=== PATIENT | female | born 1950 | race Caucasian/White ===

== ENCOUNTER → 2016-09-16 | Outpatient (CLI) | payer MEDICARE ==
--- NOTE | 2016-09-17 16:16 | XR ---
EXAMINATION TYPE: XR chest 2V DATE OF EXAM: 09/16/2016 10:08 AM COMPARISON: Prior chest x-ray 26 June 2015 HISTORY: Chest pain and hypertension, cough TECHNIQUE: Frontal and lateral views of the chest are obtained. FINDINGS: Similar findings. Extensive interstitial changes are again noted. No pneumothorax or pleur al effusion. No focal pneumonia. Prominent lung suggests underlying COPD. Cardiac mediastinal silhoue tte, pulmonary vascularity are stable. IMPRESSION: Extensive interstitial lung disease. Consider pulmonary consult.
== END | disposition home or self-care (01) ==
LOC: RADXRYALE 09:57
PROVIDERS: ATTEND Physician Assistant Medical
DX: J84.9 Interstitial pulmonary disease, unspecified (principal); I10 Essential (primary) hypertension
CPT/HCPCS: 71020

== ENCOUNTER 2016-09-18 11:39 | Emergency (ER) | payer MEDICARE ==
[2016-09-18] MEDS ORDERED: NITROGLYCERIN SL TABS 0.4 MG TAB SUBLINGUAL STA (11:57)
[2016-09-18] MEDS ORDERED: ONDANSETRON 4 MG/2 ML VIAL IVP STA (11:57)
[2016-09-18] MEDS ORDERED: SODIUM CHLORIDE 0.9% 1,000 ML IV STA (11:57)
[2016-09-18] MEDS ORDERED: HYDROmorphone 1 MG/ML 1 ML SYRINGE IVP STA (11:59)
[2016-09-18 12:47] LABS: Basophils % (A) 1 %; CH 33.5; CHCM 35.4; Eosinophils # (A) 0.1 k/uL (0-0.7); Eosinophils % (A) 3 %; HCT 43.9 % (34.0-46.0); HDW 2.39; HGB 15.4 gm/dL (11.4-16.0); Luc # (Auto) 0.18; Luc % (Auto) 4; Lymphocytes # (A) 0.9 k/uL (1.0-4.8); Lymphocytes % (A) 18 %; MCH 33.4 pg (25.0-35.0); MCHC 35.1 g/dL (31.0-37.0); Mean Platelet Volume 6.5; Monocytes # (A) 0.4 k/uL (0-1.0); Monocytes % (A) 9 %; Neutrophils # (A) 3.1 k/uL (1.3-7.7); Neutrophils % (A) 66 %; RBC 4.62 m/uL (3.80-5.40); RDW 13.2 % (11.5-15.5); WBC 4.7 k/uL (3.8-10.6); WBC (Perox) 4.78
--- NOTE | 2016-09-18 12:58 | XR ---
EXAMINATION TYPE: XR chest 2V DATE OF EXAM: 09/18/2016 12:48 PM COMPARISON: Prior chest x-ray third of September 2016 HISTORY: Chest pain TECHNIQUE: Frontal and lateral views of the chest are obtained. FINDINGS: Interstitial changes are stable. Prominent lung volumes again noted. Cardiomediastinal yvette houette, pulmonary vascularity and cydney are stable. There are overlying cardiac leads. Patient is rot ated. IMPRESSION: Interstitial lung disease.
[2016-09-18 13:03] LABS: ALT 25 U/L (9-52); AST 25 U/L (14-36); Alkaline Phosphatase 142 U/L (38-126); Anion Gap 13 mmol/L; Blood Urea Nitrogen 19 mg/dL (7-17); Calcium 9.3 mg/dL (8.4-10.2); Carbon Dioxide 22 mmol/L (22-30); Chloride 89 mmol/L (98-107); Glucose 100 mg/dL (74-99); Magnesium 1.8 mg/dL (1.6-2.3); Non-African American GFR(MDRD) 54 (>60 ml/min/1.73 sqM); Sodium 124 mmol/L (137-145); Total Bilirubin 0.9 mg/dL (0.2-1.3); Total Protein 9.1 g/dL (6.3-8.2)
[2016-09-18 13:08] LABS: Potassium 5.1 mmol/L (3.5-5.1)
[2016-09-18 13:09] LABS: Creatine Kinase 49 U/L (30-135)
[2016-09-18 13:22] LABS: Creatine Kinase MB 0.7 ng/mL (0.0-2.4); Troponin I <0.012 ng/mL (0.000-0.034)
[2016-09-18 13:23] LABS: INR 1.1 (<1.1); Partial Thromboplastin Time 26.7 sec (22.0-30.0); Prothrombin Time 11.3 sec (9.0-12.0)
[2016-09-18 13:25] VITALS: RESP 18
--- NOTE | 2016-09-18 13:57 | CT ---
EXAMINATION TYPE: CT brain wo con DATE OF EXAM: 09/18/2016 1:26 PM COMPARISON: NONE HISTORY: Pt c/o chest pain, MORALES, dizziness CT DLP: 892.1 mGycm Automated exposure control for dose reduction was used. FINDINGS: There is no acute intracranial hemorrhage, mass effect, or midline shift identified. The ventricles and sulci are within normal limits in size. Small bony defect present in the middle cranial fossa lat erally on the left without associated soft tissue mass measuring 7-8 mm. The globes are intact and th e visualized sinuses are clear. IMPRESSION: No acute intracranial hemorrhage, mass effect, or midline shift is seen.
--- NOTE | 2016-09-18 15:33 | ED ---
Chest Pain HPI - General Chief Complaint: Chest Pain Stated Complaint: chest pain Time Seen by Provider: 09/18/16 11:51 Source: patient Mode of arrival: wheelchair Limitations: no limitations - History of Present Illness Initial Comments: Complain about chest pain, and she has this chest pain off and on for some time and also complaining about some dizziness and facial pressure she was seen by her family doctor Dr. Melo did notice some EKG changes she got nervous about that at this point chest pain only gets more obvious when she takes takes a deep breath but chest pain been there off and on she stating that's not worse with exertion but she is retired she don't exert herself too much anyway. But she has multiple risk factors she has smoked most part of her life. Denies any fever no chills she has a smoker's cough no abdominal pain no frequency urgency dysuria no symptoms of TIA or CVA - Related Data Home Medications Medication Instructions Recorded Confirmed Cholecalciferol [Vitamin D3] 1,000 unit PO DAILY 09/18/16 09/18/16 Hydrochlorothiazide [Hydrodiuril] 25 mg PO DAILY 09/18/16 09/18/16 Lansoprazole [Prevacid] 30 mg PO BID 09/18/16 09/18/16 Losartan Potassium [Cozaar] 100 mg PO DAILY 09/18/16 09/18/16 Simvastatin [Zocor] 20 mg PO HS 09/18/16 09/18/16 Previous Rx's Medication Instructions Recorded Nitroglycerin Sl Tabs [Nitrostat] 0.4 mg SUBLINGUAL Q5M PRN #100 tab 09/18/16 Allergies Allergy/AdvReac Type Severity Reaction Status Date / Time hydrocodone Allergy Rash/Hives Verified 09/18/16 12:11 latex Allergy Unknown Verified 09/18/16 12:11 meperidine [From Demerol] Allergy Unknown Verified 09/18/16 12:11 oxycodone Allergy Unknown Verified 09/18/16 12:11 tramadol Allergy Unknown Verified 09/18/16 12:11 Review of Systems ROS Statement: Those systems with pertinent positive or pertinent negative responses have been documented in the HPI. ROS Other: All systems not noted in ROS Statement are negative. EKG Findings - EKG Comments: EKG Findings:: EKG is normal sinus rhythm medical rate is 68 NM interval is 132 QRS duration is 92 QT/QTc is 392/416 review of this EKG did not reveal any ST elevation or ST depression - EKG Results: EKG: interpreted by RADHA Past Medical History Past Medical History: GERD/Reflux, Hyperlipidemia, Hypertension Past Surgical History: Appendectomy, Orthopedic Surgery, Tonsillectomy Additional Past Surgical History / Comment(s): shoulder Past Psychological History: No Psychological Hx Reported Smoking Status: Current every day smoker Past Alcohol Use History: None Reported Past Drug Use History: None Reported General Exam - General Exam Comments Initial Comments: General: The patient is awake and alert, in no distress, and does Skin: Skin is warm and dry and no rashes or lesions are noted. Eye: Pupils are equal, round and reactive to light, extra-ocular movements are intact; there is normal conjunctiva bilaterally. Ears, nose, mouth and throat: He is quite tender over the sinuses bilaterally Neck: The neck is supple, there is no tenderness or JVD. Cardiovascular: There is a regular rate and rhythm. No murmur, rub or gallop is appreciated. Respiratory: To auscultation bilateral, exam consistent with a severe COPD Gastrointestinal: Soft, non-distended, non-tender abdomen without masses Back: There is no tenderness to palpation in the midline. There is no obvious deformity. Musculoskeletal: Normal ROM, no tenderness, There is no pedal edema. There is no calf tenderness or swelling. No cords were appreciated. Neurological: CN II-XII intact, Cranial nerves III through XII are intact. There are no obvious motor or sensory deficits. Coordination appears grossly intact. Speech is normal. Psychiatric: Cooperative, appropriate mood & affect, normal judgment. Limitations: no limitations Course Vital Signs 09/18/16 09/18/16 09/18/16 11:44 12:22 12:31 Temperature 96.9 F L Pulse Rate 76 65 Pulse Rate [ 69 [employer] ] Respiratory 18 16 16 Rate Blood Pressure 148/71 143/63 O2 Sat by Pulse 95 98 Oximetry 09/18/16 09/18/16 13:22 14:58 Temperature 97.6 F Pulse Rate 63 65 Pulse Rate [ [employer] ] Respiratory 18 18 Rate Blood Pressure 106/49 105/50 O2 Sat by Pulse 100 100 Oximetry She was reassessed at 1520 on her labs were discussed with her 8 d-dimer is within normal range CBC, sodium is bit low troponin is negative EKG is unremarkable head CT is normal chest x-ray is consistent with his physician lung disease, considering her risk factors it was recommended that she states in the hospital would do the serial cardiac markers we heparinize her and now consult cardiology she wants to see cardiology as outpatient and I respect her wishes Disposition Clinical Impression: Chest pain, Sinusitis Disposition: HOME SELF-CARE Condition: Good Instructions: Chest Pain (ED) Additional Instructions: Is advised to take aspirin 81 mg every day she is also prescribed him nitro spray or nitroglycerin 0.4 mg sublingual when necessary Prescriptions: Nitroglycerin Sl Tabs [Nitrostat] 0.4 mg SUBLINGUAL Q5M PRN #100 tab PRN Reason: Chest Pain Referrals: Artemio Melo DO [Primary Care Provider] - 1-2 days Sylvia Dykes MD [STAFF PHYSICIAN] - 1-2 days
[2016-09-18 16:00] VITALS: BP 113/53; PULSE 64; TEMP 98
== END 2016-09-18 15:59 | disposition home or self-care (01) ==
LOC: EC 11:39
DX: J32.9 Chronic sinusitis, unspecified (principal); R07.9 Chest pain, unspecified; I10 Essential (primary) hypertension; E78.5 Hyperlipidemia, unspecified; K21.9 Gastro-esophageal reflux disease without esophagitis; F17.200 Nicotine dependence, unspecified, uncomplicated; Z88.5 Allergy status to narcotic agent; Z91.040 Latex allergy status; Z79.899 Other long term (current) drug therapy
CPT/HCPCS: 96374; 96375; 96361 ×3; 99285; 36415; 93005; 85379; 83880; 80053; 82550; 82553; 83735; 84484; 85025; 85610; 85730; 71020; 70450; J2405; J1170

== ENCOUNTER → 2017-05-29 | Outpatient (CLI) | payer MEDICARE ==
--- NOTE | 2017-06-01 07:30 | MM ---
Reason for exam: screening (asymptomatic). Last mammogram was performed 1 year and 4 months ago. History: Patient is postmenopausal. Family history of breast cancer in maternal grandmother. Physical Findings: A clinical breast exam by your physician is recommended on an annual basis and results should be correlated with mammographic findings. MG 3D Screening Mammo W/Cad Bilateral CC and MLO view(s) were taken. Prior study comparison: January 28, 2016, bilateral MG 3d screening mammo w/cad. July 21, 2014, bilateral MG screening mammo w CAD. The breast tissue is almost entirely fat. There is no discrete abnormality. No significant changes when compared with prior studies. ASSESSMENT: Negative, BI-RAD 1 RECOMMENDATION: Routine screening mammogram of both breasts in 1 year.
== END | disposition home or self-care (01) ==
LOC: RADMAMWWP 13:12
PROVIDERS: ATTEND Family Medicine
DX: Z12.31 Encounter for screening mammogram for malignant neoplasm of breast (principal)
CPT/HCPCS: 77063; G0202

== ENCOUNTER → 2018-01-18 | Outpatient (CLI) | payer MEDICARE ==
--- NOTE | 2018-01-18 09:00 | US ---
EXAMINATION TYPE: US abdomen complete DATE OF EXAM: 01/18/2018 COMPARISON: NONE CLINICAL HISTORY: R10.11 RUQ abdominal pain. RUQ pain, NPO EXAM MEASUREMENTS: Liver Length: 16.2 cm Gallbladder Wall: 0.1 cm CBD: 0.6 cm CHD: 0.7 cm Spleen: 9.7 cm Right Kidney: 9.6 x 4.7 x 3.8 cm Left Kidney: 8.9 x 4.1 x 4.4 cm Suboptimal visualization of left kidney due to overlying bowel gas Pancreas: Limited by bowel gas. Visualized portions of the pancreas within normal limits. Liver: wnl Gallbladder: Appears compacted with multiple echogenic foci with shadowing. Evidence for sonographic Gabriel's sign: neg CBD: Appears dilated CHD: appears slightly dilated Spleen: wnl Right Kidney: wnl Left Kidney: Limited visualization of lower pole Upper IVC: wnl Abd Aorta: No AAA identified IMPRESSION: 1. Gallbladder appears contracted with multiple gallstones. Common bile duct also appears at the upp er limits of normal distal CBD stone not excluded.
== END | disposition home or self-care (01) ==
LOC: RADCTMAIN 07:51
PROVIDERS: ATTEND Family Medicine
DX: R10.11 Right upper quadrant pain (principal); I10 Essential (primary) hypertension; R42 Dizziness and giddiness
CPT/HCPCS: 76700

== ENCOUNTER → 2018-09-20 | Outpatient (CLI) | payer MEDICARE ==
--- NOTE | 2018-09-20 15:58 | CT ---
EXAMINATION TYPE: CT brain wo con DATE OF EXAM: 09/20/2018 COMPARISON: 09/18/2016 HISTORY: Dizziness and hypertension CT DLP: 969.8 mGycm Automated exposure control for dose reduction was used. TECHNIQUE: CT scan of the head is performed without contrast. FINDINGS: There is no acute intracranial hemorrhage or midline shift identified. There is diffuse v entricular and sulcal prominence consistent with diffuse age-related cerebral atrophy. No suspicious extra-axial fluid collection. Pacheco-white matter interface appears well preserved. There is redemonstr ation of a possible gisela hole or congenital abnormality of the left temporal bone that is unchanged f rom the prior on series 4 image 8. Remainder of the calvarium appears intact. Similar-appearing promi nent arachnoid granulations are seen within the left frontal bone. Mild atherosclerosis is noted of t he intracranial vasculature. There is circumferential mucosal thickening that is moderate in degree o f the right maxillary sinus with scant mucosal thickening of the ethmoid sinuses and left maxillary s inus. Frontal sinuses and sphenoid sinuses are well aerated as are the mastoid air cells. IMPRESSION: 1. No acute intracranial hemorrhage or midline shift. 2. Moderate right maxillary sinusitis with internal complexity that could relate to internal hemorrha gic or proteinaceous debris or fungal infection. Scant mucosal thickening of the left maxillary and e thmoid sinuses. 3. Redemonstration of age-related cerebral atrophy.
--- NOTE | 2018-09-21 19:15 | ECHOF ---
Referral Reason:R42 Dizziness and giddiness MEASUREMENTS -------- HEIGHT: 162.6 cm WEIGHT: 73.9 kg BP: 121/57 RVIDd: 2.9 cm (< 3.3) IVSd: 1.1 cm (0.6 - 1.1) LVIDd: 3.3 cm (3.9 - 5.3) LVPWd: 1.2 cm (0.6 - 1.1) IVSs: 1.5 cm LVIDs: 2.2 cm LVPWs: 1.4 cm LA Diam: 3.2 cm (2.7 - 3.8) LAESV Index (A-L): 24.94 ml/m Ao Diam: 3.0 cm (2.0 - 3.7) AV Cusp: 1.6 cm (1.5 - 2.6) MV EXCURSION: 18.894 mm (> 18.000) MV EF SLOPE: 63 mm/s (70 - 150) EPSS: 0.5 cm MV E César: 0.84 m/s MV DecT: 226 ms MV A César: 1.04 m/s MV E/A Ratio: 0.81 RAP: 5.00 mmHg RVSP: 30.81 mmHg FINDINGS -------- Sinus rhythm. This was a technically good study. The left ventricular size is normal. There is borderline concentric left ventricular hypertrophy. Overall left ventricular systolic function is normal with, an EF between 60 - 65 %. The right ventricle is normal in size. Normal LA size by volume 22+/-6 ml/m2. The right atrium is normal in size. There is mild aortic valve sclerosis. The mitral valve is normal. There is trace to mild mitral regurgitation. Mild tricuspid regurgitation present. Right ventricular systolic pressure is normal at < 35 mmHg. Trace/mild (physiologic) pulmonic regurgitation. The aortic root size is normal. Normal inferior vena cava with normal inspiratory collapse consistent with estimated right atrial pre ssure of 5 mmHg. The inferior vena cava is mildly dilated. There is no pericardial effusion. CONCLUSIONS -------- 1. Sinus rhythm. 2. This was a technically good study. 3. The left ventricular size is normal. 4. There is borderline concentric left ventricular hypertrophy. 5. Overall left ventricular systolic function is normal with, an EF between 60 - 65 %. 6. The right ventricle is normal in size. 7. Normal LA size by volume 22+/-6 ml/m2. 8. The right atrium is normal in size. 9. There is mild aortic valve sclerosis. 10. The mitral valve is normal. 11. There is trace to mild mitral regurgitation. 12. Mild tricuspid regurgitation present. 13. Right ventricular systolic pressure is normal at < 35 mmHg. 14. Trace/mild (physiologic) pulmonic regurgitation. 15. The aortic root size is normal. 16. Normal inferior vena cava with normal inspiratory collapse consistent with estimated right atrial pressure of 5 mmHg. 17. The inferior vena cava is mildly dilated. 18. There is no pericardial effusion. CLINICAL PROGRAM DIRECTOR: Roxanne Matamoros RDCS
== END | disposition home or self-care (01) ==
LOC: RADECHMAIN 15:11
PROVIDERS: ATTEND Family Medicine
DX: G31.1 Senile degeneration of brain, not elsewhere classified (principal); I10 Essential (primary) hypertension; I35.8 Other nonrheumatic aortic valve disorders; I07.1 Rheumatic tricuspid insufficiency; I37.1 Nonrheumatic pulmonary valve insufficiency
CPT/HCPCS: 70450; 93306

== ENCOUNTER → 2019-04-08 | Outpatient (CLI) | payer MEDICARE ==
--- NOTE | 2019-04-12 13:05 | MM ---
Reason for exam: screening (asymptomatic). Last mammogram was performed 1 year and 10 months ago. History: Patient is postmenopausal. Family history of breast cancer in maternal grandmother. MG 3D Screening Mammo W/Cad Bilateral CC and MLO view(s) were taken. Prior study comparison: May 29, 2017, bilateral MG 3d screening mammo w/cad. January 28, 2016, bilateral MG 3d screening mammo w/cad. There are scattered fibroglandular densities. No significant new finding when compared with prior studies. ASSESSMENT: Negative, BI-RAD 1 RECOMMENDATION: Routine screening mammogram of both breasts in 1 year.
== END | disposition home or self-care (01) ==
LOC: RADMAMWWP 12:15
PROVIDERS: ATTEND Family Medicine
DX: Z12.31 Encounter for screening mammogram for malignant neoplasm of breast (principal)
CPT/HCPCS: 77063; 77067

== ENCOUNTER → 2019-07-29 | Outpatient (CLI) | payer MEDICARE ==
--- NOTE | 2019-07-29 11:28 | XR ---
EXAMINATION TYPE: XR chest 2V DATE OF EXAM: 07/29/2019 COMPARISON: 09/18/2016 TECHNIQUE: PA and lateral views submitted. HISTORY: Shortness of breath FINDINGS: Diffuse hyperinflation. Heart size normal. Diffuse reticular changes throughout the lungs. Subsegment al changes left lung base. There is prominence of the left hilum which has a somewhat nodular contour . Degenerative changes are IMPRESSION: 1. Correlate for pulmonary fibrosis with left lower lobe infiltrate. 2. Nodularity convex outer margin of the left hilum can be associated with a mass or adenopathy and r ecommend CT of the chest.
== END | disposition home or self-care (01) ==
LOC: RADXRYALE 11:05
PROVIDERS: ATTEND Physician Assistant Medical
DX: R91.1 Solitary pulmonary nodule (principal); J44.9 Chronic obstructive pulmonary disease, unspecified
CPT/HCPCS: 71046

== ENCOUNTER → 2019-08-05 | Outpatient (CLI) | payer MEDICARE ==
--- NOTE | 2019-08-05 11:10 | CT ---
EXAMINATION TYPE: CT chest w con DATE OF EXAM: 08/05/2019 COMPARISON: Chest x-ray dated 07/29/2019 HISTORY: Abn CXR CT DLP: 297 mGycm. Automated Exposure Control for Dose Reduction was Utilized. TECHNIQUE: CT scan of the thorax is performed following with IV Contrast, patient injected with 100 mL of Isovue 300. FINDINGS: LUNGS: Peripheral predominant honeycombing and reticular opacity is indicative of pulmonary fibrosis. Interlobular septal thickening is also present. Subpleural consolidations are likely related to atel ectasis. Medial lower lobe consolidation is also likely related to atelectasis as is the lingular con solidation. No pleural effusion or pneumothorax. Moderate centrilobular and paraseptal emphysema. Juan Pablo ateral multifocal pleural thickening is mild and thickness but diffuse. MEDIASTINUM: Abnormal prevascular lymph node measures 1.7 x 2.1 cm. Abnormal subcarinal lymph node me asures 1.6 cm in short axis. Prominent right hilar lymph nodes measure up to 1.2 cm in short axis. Le ft paratracheal adenopathy measures 1.2 cm in short axis. Precarinal lymph node measures 1.4 cm in sh ort axis. Pretracheal lymph node measures 1.7 cm in short axis. No pericardial effusion is seen. F ew coronary artery calcifications. OTHER: No additional significant abnormality is seen. Cholecystectomy clips are seen. There is an ex aggerated thoracic kyphosis and moderate multilevel degenerative cyst disease of the thoracic spine. Diffuse low-density of the hepatic parenchyma favors mild degree hepatic steatosis and limits evaluat ion for hepatic masses. IMPRESSION: 1. Confirmation of pulmonary fibrosis, at least moderate with moderate background centrilobular and p araseptal emphysematous change. Multifocal pleural thickening and atelectasis is also seen. 2. Abnormal mediastinal adenopathy. This may be reactive and could be reassessed in 3 months.
== END ==
LOC: RADCTMAIN 07:23
PROVIDERS: ATTEND Family Medicine
DX: J84.10 Pulmonary fibrosis, unspecified (principal); J43.9 Emphysema, unspecified; J98.11 Atelectasis; R91.8 Other nonspecific abnormal finding of lung field; R59.0 Localized enlarged lymph nodes
CPT/HCPCS: 71260; Q9967

== ENCOUNTER → 2019-11-14 | Outpatient (CLI) | payer MEDICARE ==
--- NOTE | 2019-11-14 12:55 | CT ---
EXAMINATION TYPE: CT chest wo con DATE OF EXAM: 11/14/2019 COMPARISON: CT chest August 05, 2019. Most recent chest x-ray July 29, 2019 and older x-rays and 2014. HISTORY: difficulty breathing, interstitial lung disease CT DLP: 655.9 mGycm. Automated Exposure Control for Dose Reduction was Utilized. TECHNIQUE: CT scan of the thorax is performed without IV contrast. High resolution protocol with 1 m m obtained at 10 mm intervals in supine and prone technique. FINDINGS: LUNGS: Redemonstration of bilateral peripheral reticulation and peripheral fibrotic changes greatest in the lower lungs versus upper lungs with some areas of honeycombing also present along the peripher y. There is small right pleural effusion on current study. Suboptimal evaluation for nodules but no a reas of nodularity and/or nodular consolidation also present bilaterally reference 12 x 7 mm right mi ddle lobe nodule axial image 18 series 8. No significant bronchiectasis. No pneumothorax. MEDIASTINUM: Lack of IV contrast and technique are both noted to limit evaluation for mediastinal and especially hilar adenopathy. There are prominent lymph nodes anterior to the aorta and origin of pul monary artery near image 12 series 7 redemonstrated. Abnormal pericarinal lymph node axial image 12 r edemonstrated seen better on prior study. Abnormal right hilar and subcarinal lymph nodes remain pres ent. No cardiomegaly or pericardial effusion is seen. OTHER: Cholecystectomy clips. Multilevel spurring in the spine. IMPRESSION: Severe bilateral parenchymal fibrotic changes most prominent in the periphery and in the lung bases raising concern for IPF. Findings have been present since 2014 (oldest x-ray available) wi th gradual increase noted on serial radiographs. Persistent suspicious thoracic adenopathy. New small right pleural effusion with increasing nodular consolidation and possible developing nodule. Conside r PET/CT to further evaluate for possible malignancy on background advanced chronic parenchymal barnett es.
== END | disposition home or self-care (01) ==
LOC: RADCTMAIN 12:02
PROVIDERS: ATTEND Nurse Practitioner Adult Health
DX: J90 Pleural effusion, not elsewhere classified (principal); J84.10 Pulmonary fibrosis, unspecified; R91.1 Solitary pulmonary nodule
CPT/HCPCS: 71250

== ENCOUNTER 2020-04-06 14:03 | Inpatient (IN) | payer MEDICARE ==
[2020-04-06] MEDS ORDERED: MORPHINE SULFATE 2 MG/ML SYRINGE IVP STA (14:17)
--- NOTE | 2020-04-06 14:29 | ED ---
General Adult HPI - General Chief complaint: Abdominal Pain Stated complaint: Abd Pain Time Seen by Provider: 04/06/20 14:07 Source: patient, family, RN notes reviewed Mode of arrival: EMS Limitations: no limitations - History of Present Illness Initial comments: Patient is a pleasant 69-year-old female presenting to the emergency Department with complaints of abdominal discomfort. Patient has right lower abdominal discomfort that has progressed over a proximal he 4 weeks. No nausea vomiting. patient diarrhea. Patient has noticed leg edema progressive over the past one week. Patient has had some mild leg edema previously however not quite as severe. Patient has severe interstitial fibrosis and is on home oxygen. Patient denies any new shortness of breath or cough. states short of breath seems slightly worse than normal. Patient states she always sleeps in a recliner however no known history of congestive heart failure. - Related Data Home Medications Medication Instructions Recorded Confirmed Cholecalciferol [Vitamin D3] 5,000 unit PO DAILY 09/18/16 04/06/20 Lansoprazole [Prevacid] 30 mg PO BID 09/18/16 04/06/20 Losartan Potassium [Cozaar] 100 mg PO DAILY 09/18/16 04/06/20 Simvastatin [Zocor] 20 mg PO HS 09/18/16 04/06/20 hydroCHLOROthiazide [Hydrodiuril] 25 mg PO DAILY 09/18/16 04/06/20 Aspirin EC [Ecotrin Low Dose] 81 mg PO HS 04/06/20 04/06/20 Ipratropium-Albuterol Nebulize 3 ml INHALATION RT-QID PRN 04/06/20 04/06/20 [Duoneb 0.5 mg-3 mg/3 ml Soln] Montelukast Sodium [Singulair] 10 mg PO DAILY 04/06/20 04/06/20 Previous Rx's Medication Instructions Recorded Nitroglycerin Sl Tabs [Nitrostat] 0.4 mg SUBLINGUAL Q5M PRN #100 tab 09/18/16 Allergies Allergy/AdvReac Type Severity Reaction Status Date / Time hydrocodone Allergy Rash/Hives Verified 04/06/20 14:57 latex Allergy Unknown Verified 04/06/20 14:57 meperidine [From Demerol] Allergy Unknown Verified 04/06/20 14:57 oxycodone Allergy Unknown Verified 04/06/20 14:57 tramadol Allergy Unknown Verified 04/06/20 14:57 pirfenidone AdvReac Kidney Verified 04/06/20 15:04 Pain (brand Esbriet) Review of Systems ROS Statement: Those systems with pertinent positive or pertinent negative responses have been documented in the HPI. ROS Other: All systems not noted in ROS Statement are negative. Constitutional: Denies: fever Eyes: Denies: eye pain ENT: Denies: ear pain Respiratory: Reports: as per HPI Cardiovascular: Reports: edema. Denies: chest pain Endocrine: Denies: fatigue Gastrointestinal: Reports: as per HPI, abdominal pain Genitourinary: Denies: dysuria Musculoskeletal: Denies: back pain Skin: Denies: rash Neurological: Denies: weakness Past Medical History Past Medical History: GERD/Reflux, Hyperlipidemia, Hypertension Past Surgical History: Appendectomy, Orthopedic Surgery, Tonsillectomy Additional Past Surgical History / Comment(s): shoulder Past Psychological History: No Psychological Hx Reported Smoking Status: Never smoker Past Alcohol Use History: None Reported Past Drug Use History: None Reported General Exam Limitations: no limitations General appearance: alert, in no apparent distress Head exam: Present: normocephalic Eye exam: Present: normal appearance Neck exam: Present: normal inspection Respiratory exam: Present: rhonchi. Absent: respiratory distress Cardiovascular Exam: Present: regular rate, normal rhythm GI/Abdominal exam: Present: soft. Absent: tenderness Extremities exam: Present: pedal edema (+3 bilateral with some bulla formation on the left lower leg). Absent: calf tenderness Back exam: Present: normal inspection Neurological exam: Present: alert Psychiatric exam: Present: normal affect, normal mood Skin exam: Present: normal color Course Vital Signs 04/06/20 04/06/20 04/06/20 14:13 17:00 17:20 Temperature 98.3 F Pulse Rate 48 L 92 90 Respiratory 26 H 20 20 Rate Blood Pressure 84/58 92/58 106/79 O2 Sat by Pulse 91 L Oximetry - Reevaluation(s) Reevaluation #1: 04/06/20 17:50 There is concern for sepsis diagnosed at 1750. Blood culture and lactic acid will be added. IV antibiotics will be added. EKG Findings - EKG Comments: EKG Findings:: Sinus tachycardia 103. AK 116. QRS 84. QT 346. QTc 453. Right axis. PVCs are present. Normal QRS. Inverted T-wave inferior. Medical Decision Making - Medical Decision Making Patient reevaluated and updated. Case was discussed in detail with Dr. Aj, who will admit covering for Dr. Mejias - Lab Data Result diagrams: 04/06/20 16:01 04/06/20 16:01 Lab Results 04/06/20 04/06/20 04/06/20 Range/Units 16:01 16:01 16:01 WBC 9.7 (3.8-10.6) k/uL RBC 4.97 (3.80-5.40) m/uL Hgb 16.3 H (11.4-16.0) gm/dL Hct 50.8 H (34.0-46.0) % MCV 102.3 H (80.0-100.0) fL MCH 32.9 (25.0-35.0) pg MCHC 32.1 (31.0-37.0) g/dL RDW 15.9 H (11.5-15.5) % Plt Count 218 (150-450) k/uL Neutrophils % 89 % Lymphocytes % 4 % Monocytes % 5 % Eosinophils % 1 % Basophils % 0 % Neutrophils # 8.6 H (1.3-7.7) k/uL Lymphocytes # 0.4 L (1.0-4.8) k/uL Monocytes # 0.5 (0-1.0) k/uL Eosinophils # 0.1 (0-0.7) k/uL Basophils # 0.0 (0-0.2) k/uL Hypochromasia Moderate Macrocytosis Moderate Sodium 138 (137-145) mmol/L Potassium 4.0 (3.5-5.1) mmol/L Chloride 109 H (98-107) mmol/L Carbon Dioxide 16 L (22-30) mmol/L Anion Gap 13 mmol/L BUN 84 H (7-17) mg/dL Creatinine 1.87 H (0.52-1.04) mg/dL Est GFR (CKD-EPI)AfAm 31 (>60 ml/min/1.73 sqM) Est GFR (CKD-EPI)NonAf 27 (>60 ml/min/1.73 sqM) Glucose 125 H (74-99) mg/dL Calcium 9.3 (8.4-10.2) mg/dL Total Bilirubin 1.4 H (0.2-1.3) mg/dL AST 24 (14-36) U/L ALT 15 (4-34) U/L Alkaline Phosphatase 88 (38-126) U/L Creatine Kinase 66 (30-135) U/L Troponin I (0.000-0.034) ng/mL NT-Pro-B Natriuret Pep pg/mL Total Protein 7.5 (6.3-8.2) g/dL Albumin 3.3 L (3.5-5.0) g/dL Amylase 55 (30-110) U/L Lipase 82 (23-300) U/L Urine Color Yellow Urine Appearance Cloudy H (Clear) Urine pH 5.5 (5.0-8.0) Ur Specific Kirby 1.019 (1.001-1.035) Urine Protein Trace H (Negative) Urine Glucose (UA) Negative (Negative) Urine Ketones Negative (Negative) Urine Blood Negative (Negative) Urine Nitrite Negative (Negative) Urine Bilirubin Negative (Negative) Urine Urobilinogen 4.0 (<2.0) mg/dL Ur Leukocyte Esterase Large H (Negative) Urine RBC 3 (0-5) /hpf Urine WBC 111 H (0-5) /hpf Ur Squamous Epith Cells 2 (0-4) /hpf Urine Bacteria Many H (None) /hpf Hyaline Casts 10 H (0-2) /lpf Urine Mucus Few H (None) /hpf 04/06/20 04/06/20 Range/Units 16:01 16:01 WBC (3.8-10.6) k/uL RBC (3.80-5.40) m/uL Hgb (11.4-16.0) gm/dL Hct (34.0-46.0) % MCV (80.0-100.0) fL MCH (25.0-35.0) pg MCHC (31.0-37.0) g/dL RDW (11.5-15.5) % Plt Count (150-450) k/uL Neutrophils % % Lymphocytes % % Monocytes % % Eosinophils % % Basophils % % Neutrophils # (1.3-7.7) k/uL Lymphocytes # (1.0-4.8) k/uL Monocytes # (0-1.0) k/uL Eosinophils # (0-0.7) k/uL Basophils # (0-0.2) k/uL Hypochromasia Macrocytosis Sodium (137-145) mmol/L Potassium (3.5-5.1) mmol/L Chloride (98-107) mmol/L Carbon Dioxide (22-30) mmol/L Anion Gap mmol/L BUN (7-17) mg/dL Creatinine (0.52-1.04) mg/dL Est GFR (CKD-EPI)AfAm (>60 ml/min/1.73 sqM) Est GFR (CKD-EPI)NonAf (>60 ml/min/1.73 sqM) Glucose (74-99) mg/dL Calcium (8.4-10.2) mg/dL Total Bilirubin (0.2-1.3) mg/dL AST (14-36) U/L ALT (4-34) U/L Alkaline Phosphatase (38-126) U/L Creatine Kinase (30-135) U/L Troponin I 0.069 H* (0.000-0.034) ng/mL NT-Pro-B Natriuret Pep 67364 pg/mL Total Protein (6.3-8.2) g/dL Albumin (3.5-5.0) g/dL Amylase (30-110) U/L Lipase (23-300) U/L Urine Color Urine Appearance (Clear) Urine pH (5.0-8.0) Ur Specific Kirby (1.001-1.035) Urine Protein (Negative) Urine Glucose (UA) (Negative) Urine Ketones (Negative) Urine Blood (Negative) Urine Nitrite (Negative) Urine Bilirubin (Negative) Urine Urobilinogen (<2.0) mg/dL Ur Leukocyte Esterase (Negative) Urine RBC (0-5) /hpf Urine WBC (0-5) /hpf Ur Squamous Epith Cells (0-4) /hpf Urine Bacteria (None) /hpf Hyaline Casts (0-2) /lpf Urine Mucus (None) /hpf - Radiology Data Radiology results: report reviewed (Computed tomography scan of the abdomen pelvis does not show acute abnormality. Appendix is not visual. No sign of thickened appendix. Bilateral pulmonary infiltrates with large concern for pneumonia and heart failure.), image reviewed (Chest x-ray shows right effusion and infiltrate increase from prior. Severe underlying pulmonary fibrosis. Possible heart failure.) Critical Care Time Critical Care Time: Yes Total Critical Care Time: 32 Disposition Clinical Impression: Pneumonia, Sepsis, Urinary tract infection, Renal failure, Congestive heart fa ilure (CHF) Disposition: ADMITTED IP TO THIS HOSP Condition: Serious Is patient prescribed a controlled substance at d/c from ED?: No Referrals: Artemio Melo DO [Primary Care Provider] - 1-2 days Decision Time: 17:51
[2020-04-06 16:17] LABS: Appearance,Urine Cloudy (Clear); Bacteria,Urine Many /hpf; Bilirubin,Urine Negative (Negative); Blood,Urine Negative (Negative); Color,Urine Yellow; Glucose,Urine (UA) Negative (Negative); Hyaline Casts,Urine 10 /lpf (0-2); Ketones,Urine Negative (Negative); Leukocyte Esterase,Urine Large (Negative); Mucus,Urine Few /hpf; Nitrite,Urine Negative (Negative); PH, Urine 5.5 (5.0-8.0); Protein,Urine Trace (Negative); RBC,Urine 3 /hpf (0-5); Specific Gravity,Urine 1.019 (1.001-1.035); Squamous Epithelial Cell,Urine 2 /hpf (0-4); WBC,Urine 111 /hpf (0-5)
[2020-04-06 16:31] LABS: Basophils % (A) 0 %; Eosinophils # (A) 0.1 k/uL (0-0.7); Eosinophils % (A) 1 %; HCT 50.8 % (34.0-46.0); HGB 16.3 gm/dL (11.4-16.0); Hypochromasia Moderate; Lymphocytes # (A) 0.4 k/uL (1.0-4.8); Lymphocytes % (A) 4 %; MCH 32.9 pg (25.0-35.0); MCHC 32.1 g/dL (31.0-37.0); MCV 102.3 fL (80.0-100.0); Macrocytosis Moderate; Mean Platelet Volume 9.1; Monocytes # (A) 0.5 k/uL (0-1.0); Monocytes % (A) 5 %; Neutrophils # (A) 8.6 k/uL (1.3-7.7); Neutrophils % (A) 89 %; Platelet Count 218 k/uL (150-450); RBC 4.97 m/uL (3.80-5.40); RDW 15.9 % (11.5-15.5); WBC 9.7 k/uL (3.8-10.6)
[2020-04-06 16:43] LABS: Albumin 3.3 g/dL (3.5-5.0); Calcium 9.3 mg/dL (8.4-10.2); Total Bilirubin 1.4 mg/dL (0.2-1.3); Total Protein 7.5 g/dL (6.3-8.2)
--- NOTE | 2020-04-06 17:44 | CT ---
EXAMINATION TYPE: CT abdomen pelvis wo con DATE OF EXAM: 04/06/2020 COMPARISON: None HISTORY: Right lower quadrant abdominal pain. CT DLP: 579.9 mGycm Automated exposure control for dose reduction was used. Images were obtained from the diaphragm to the floor the pelvis with no contrast. FINDINGS: There is moderately large right pleural effusion. There is patchy airspace infiltrate and atelectasis in both lower lobes. There is coarse pulmonary interstitial density also suggestive of some underlyi ng pulmonary fibrosis. There is no pericardial effusion. Liver shows no focal defect. The bile ducts are not dilated. There are clips from cholecystectomy. Sp catracho is intact. There is no pancreatic mass. There is no adrenal mass. Kidneys show normal size and contour. There is no hydronephrosis. There is increased density in the renal papilla bilaterally that could relate to some nephrocalcinosis. There is no retroperitoneal adenopathy. Abdominal aorta is atheromatous. Bladder distends smoothly. There is no inguinal hernia. Uterus is anteverted. There is no free fluid in the pelvis. Abdominal aorta is atheromatous. There is no evidence of a pelvic mass. There is no mesenteric edema. There is no ascites or free air. There is no bowel obstruction. Appendi x is not definitely seen. There is no sign of thickened appendix. Lumbar vertebra have normal alignment. There is no compression fracture. Posterior elements are intac t. The bony pelvis is intact. There is subcutaneous edema over the lower lumbar spine. There is 2 cm increased density in the subcutaneous fat posterior to the right ilium that could be injection site. IMPRESSION: No acute abnormality within the abdomen pelvis. Appendix not seen. No sign of thickened appendix. Extensive bilateral pulmonary infiltrates with large right pleural effusion. This could relate to com bined pneumonia and congestive heart failure. There is probably underlying pulmonary fibrosis. Renal papillary calcification without evidence of renal obstruction.
--- NOTE | 2020-04-06 17:46 | XR ---
EXAMINATION TYPE: XR chest 2V DATE OF EXAM: 04/06/2020 COMPARISON: 07/29/2019 HISTORY: Short of breath TECHNIQUE: 2 views FINDINGS: There is extensive coarse interstitial density in both lungs. There is blunting right costo phrenic angle. Heart appears enlarged. IMPRESSION: Right pleural effusion and right lower lobe infiltrate increased compared to old exam. Th ere is evidence for severe underlying pulmonary fibrosis. Heart failure is possible.
[2020-04-06] MEDS ORDERED: AZITHROMYCIN 500 MG in SODIUM CHLORIDE 0.9% 250 ML IVPB STA (17:52)
[2020-04-06] MEDS ORDERED: PNEUMONIA PROTOCOL UTILIZED 1 EACH MISC PO PRN (17:52)
[2020-04-06 17:55] LABS: INR 1.3 (<1.2); Partial Thromboplastin Time 23.9 sec (22.0-30.0); Prothrombin Time 12.7 sec (9.0-12.0)
[2020-04-06] MEDS ORDERED: NITROGLYCERIN SL TABS 0.4 MG TAB SUBLINGUAL PRN (18:05)
[2020-04-06] MEDS: SODIUM CHLORIDE 0.9% 1,000 ML IV SCH (18:57)
[2020-04-06] MEDS: IPRATROPIUM-ALBUTEROL 3 ML NEB INHALATION SCH (19:08)
[2020-04-06] MEDS: HEPARIN SODIUM,PORCINE 5,000 UNIT/ML 1 ML VIAL SQ SCH (19:55)
--- NOTE | 2020-04-06 20:19 | HP ---
HISTORY AND PHYSICAL DATE OF SERVICE: 04/06/2020 CHIEF COMPLAINTS: Abdominal pain as well as left leg ulcer. HISTORY OF PRESENT ILLNESS: This 69-year-old woman with a past medical history of multiple medical problems, including GERD, hypertension, hyperlipidemia, history of DJD, being followed by Dr. Artemio Melo in the outpatient setting, was complaining of abdominal pain as well as left leg ulcer. The pain was situated diffusely in the left part of the abdomen. A CT scan of the abdomen was done in the ER that showed extensive bilateral pulmonary infiltrates and a large right pleural effusion; pneumonia or CHF was considered as a possibility. The chest x-ray which was personally reviewed by me showed bilateral infiltrates as well. The patient also had extensive severe pulmonary fibrosis. There is no history of any fever, rigor or chills. No history of headache, loss of consciousness, seizures. Patient also has a significant ulcer on the left leg. Patient admitted for further evaluation and treatment. PAST MEDICAL HISTORY: History of GERD, hypertension, hyperlipidemia, history of appendectomy, history of DJD. HOME MEDICATIONS: Singulair, Zocor, Nitrostat, Cozaar, Prevacid, DuoNeb, HydroDIURIL, vitamin D3, Ecotrin. Doses are reviewed. ALLERGIES: HYDROCODONE, LATEX, DEMEROL, OXYCODONE, ULTRAM, PIRFENIDONE. FAMILY HISTORY: No history of heart disease or strokes in the family. SOCIAL HISTORY: History of smoking, continued ongoing. REVIEW OF SYSTEMS: ENT: No diminished hearing. No diminished vision. CARDIOVASCULAR SYSTEM: As mentioned earlier. RESPIRATORY SYSTEM: As mentioned earlier. GI: No nausea, vomiting. : No dysuria or retention. NERVOUS SYSTEM: No numbness, weakness. ALLERGY/IMMUNOLOGY: No asthma, hayfever. MUSCULOSKELETAL: As mentioned earlier. HEMATOLOGY/ONCOLOGY: No history of anemia. ENDOCRINE: No history of diabetes, hypothyroidism. CONSTITUTIONAL: As mentioned earlier. DERMATOLOGY: Negative. RHEUMATOLOGY: Negative. PSYCHIATRY: As mentioned earlier. PHYSICAL EXAMINATION: Patient alert and oriented x3. Pulse is 92, blood pressure 84/48, respiration 26, temperature 98.3, pulse ox 91% on 4 L. HEENT: Conjunctivae normal. Oral mucosa moist. NECK: No jugular venous distention. No carotid bruit. No lymph node enlargement. CARDIOVASCULAR SYSTEM: S1, S2 muffled. RESPIRATORY SYSTEM: Breath sounds diminished at the bases. A few scattered rhonchi and crackles. ABDOMEN: Soft, non-tender. No mass palpable. LEGS: Significant infection/ulceration/bullous lesion on the left leg present. NERVOUS SYSTEM: Higher functions as mentioned earlier. Moves all 4 limbs. No focal motor or sensory deficit. LYMPHATICS: No lymph node palpable in neck, axillae or groin. SKIN: As mentioned earlier. JOINTS: No active deforming arthropathy. LABS: Labs at this time show WBC 9.6, hemoglobin 16.3. Creatinine is 1.87 and troponin 0.069. UA showed possible UTI. ASSESSMENT: 1. Possible bilateral pneumonia with sepsis with septic shock and severe hypotension. 2. Rule out pulmonary fibrosis. 3. Possible acute urinary tract infection, present on admission. 4. Troponin 0.06, indeterminate, present on admission. 5. Increased creatinine with acute renal failure, present on admission. 6. Left lower leg ulcer with possible sepsis, present on admission. 7. History of gastroesophageal reflux disease. 8. Hypertension. 9. Hyperlipidemia. 10.History of appendectomy. 11.History of degenerative joint disease. 12.Gait dysfunction. RECOMMENDATIONS AND DISCUSSION: In this 69-year-old woman who presented with multiple complex medical issues, we will monitor the patient closely, continue the current medications, continue symptomatic treatment. Will initiate broad-spectrum IV antibiotics. Pulmonary and Cardiology will be consulted. I would also recommend infectious disease evaluation. COVID-19 test also will be requested. Cultures are also obtained. CT scan noted. Overall prognosis extremely guarded because of multiple complex medical issues. Further recommendations to follow. A copy of this dictation is being forwarded to Dr. Melo, who is the primary physician. MMODL / IJN: [id number] /
[2020-04-06] MEDS: ATORVASTATIN 10 MG TAB PO SCH (20:28)
[2020-04-06] MEDS: ASPIRIN 81 MG PO SCH (20:28)
[2020-04-06] MEDS ORDERED: NON FORMULARY DRUG (Lansoprazole [Prevacid] 30 MG) PO SCH (21:00)
[2020-04-07] MEDS: SODIUM CHLORIDE 0.9% 1,000 ML IV SCH (01:50)
[2020-04-07] MEDS: PANTOPRAZOLE 40 MG TABLET PO SCH (06:07)
[2020-04-07 06:58] LABS: Basophils % (A) 0 %; Eosinophils # (A) 0.1 k/uL (0-0.7); Eosinophils % (A) 1 %; HCT 47.7 % (34.0-46.0); HGB 14.5 gm/dL (11.4-16.0); Hypochromasia Moderate; Lymphocytes # (A) 0.5 k/uL (1.0-4.8); Lymphocytes % (A) 5 %; MCH 30.8 pg (25.0-35.0); MCHC 30.4 g/dL (31.0-37.0); MCV 101.3 fL (80.0-100.0); Macrocytosis Slight; Mean Platelet Volume 8.9; Monocytes # (A) 0.7 k/uL (0-1.0); Monocytes % (A) 8 %; Neutrophils # (A) 7.3 k/uL (1.3-7.7); Neutrophils % (A) 84 %; Platelet Count 205 k/uL (150-450); RBC 4.71 m/uL (3.80-5.40); RDW 15.9 % (11.5-15.5); WBC 8.7 k/uL (3.8-10.6)
--- NOTE | 2020-04-07 07:02 | XR ---
EXAMINATION TYPE: XR chest 2V DATE OF EXAM: 04/07/2020 HISTORY: pneumonia. REFERENCE: Previous study dated 04/06/2020. FINDINGS: There is a right basilar infiltrate. There is a right-sided effusion. The heart is enlarged . There is vascular congestion and mild edema. IMPRESSION: 1. FINDINGS CONSISTENT WITH MILD PULMONARY EDEMA. 2. RIGHT BASILAR AIRSPACE DISEASE MAY REPRESENT CONFLUENT EDEMA OR PNEUMONIA. 3. UNDERLYING COPD.
[2020-04-07 07:15] LABS: Calcium 8.8 mg/dL (8.4-10.2); Potassium 4.3 mmol/L (3.5-5.1)
[2020-04-07] MEDS: IPRATROPIUM-ALBUTEROL 3 ML NEB INHALATION SCH ×4 (08:38→20:52)
[2020-04-07] MEDS: LOSARTAN 50 MG TAB PO SCH ×2 (08:44→08:46)
[2020-04-07] MEDS: HEPARIN SODIUM,PORCINE 5,000 UNIT/ML 1 ML VIAL SQ SCH ×2 (08:44→21:04)
[2020-04-07] MEDS: CHOLECALCIFEROL 1,000 UNIT TAB PO SCH (08:44)
[2020-04-07] MEDS: MONTELUKAST 10 MG TAB PO SCH (08:45)
[2020-04-07] MEDS: predniSONE 10 MG TAB PO SCH (10:19)
--- NOTE | 2020-04-07 11:50 | P.CNPUL ---
History of Present Illness Consult date: 04/07/20 Requesting physician: Reji Aj Reason for consult: abnormal CXR/CT (Pulmonary fibrosis) Chief complaint: Right-sided flank and lower quadrant pain History of present illness: This is a very pleasant 69-year-old female patient follows with Dr. Melo as her primary care provider. She has a history of hypertension, hyperlipidemia, gastroesophageal reflux disease. She is a lifelong nonsmoker. She does follow with Dr. aCmara in our office for chronic hypoxemic respiratory failure with class IV dyspnea secondary to idiopathic pulmonary fibrosis. Her FVC is 61%. She had been initiated on pirfenidone/Esbriet at 267 mg that was to be titrated to 3 tablets 3 times a day. The patient started having GI symptoms and recovered. He trialed her again at a lower dose but she developed right-sided flank pain that she related to her kidneys and she stopped the medication again. She is maintained on oxygen at 2 L/m in the outpatient setting. She presented to the emergency room yesterday with ongoing right lower abdominal discomfort and right flank pain. She also had noticed increased swelling of the lower extremities. No worsening shortness of breath or cough. Computed tomography scan of the abdomen and pelvis revealed no acute abnormalities. There is noted extensive bilateral pulmonary infiltrates with large right pleural effusion. Today's chest x-ray reveals mild pulmonary edema. Right basilar airspace disease representing confluent edema versus pneumonia. Underlying fibrosis. She is seen today in consultation on the selective care unit. She is currently sitting up in a chair at the bedside. States her breathing is at her baseline while at rest. She is maintaining O2 saturations in the high 90s on 5 L/m per nasal cannula. She's been afebrile. She does have significant lower extremity edema with open wounds. Cultures pending. Urine culture pending as well. ProBNP 34,300. Troponin 0.069. Albumin 3.3. White count 8.7. Hemoglobin 14.5. Sodium 141. Potassium 4.3. Bicarb 23. Creatinine 1.90. She's been initiated on ceftriaxone and azithromycin. Bronchodilators. Oral prednisone. Echocardiogram pending. Review of Systems REVIEW OF SYSTEMS: CONSTITUTIONAL: Positive for weight gain and lower extremity edema EYES: Denies change in vision. EARS, NOSE, MOUTH, THROAT: Denies headaches, denies sore throat. CARDIOVASCULAR: Denies chest pain, palpitations or syncopal episodes. RESPIRATORY: Positive for per her usual shortness of breath, cough, no congestion or hemoptysis. GASTROINTESTINAL: Denies change in appetite, denies abdominal pain GENITOURINARY: Denies hematuria, denies infections. MUSKULOSKELETAL: Positive lower extremity edema with blisters and open wounds. INTEGUMENTARY: Denies rash, denies eczema. NEUROLOGICAL: Denies recent memory loss, no recent seizure activity. PSYCHIATRIC: Denies anxiety, denies depression. HEMATOLOGIC/LYMPHATIC: Denies anemia, denies enlarged lymph nodes. Past Medical History Past Medical History: GERD/Reflux, Hyperlipidemia, Hypertension, Pneumonia Additional Past Medical History / Comment(s): Pulm fibrosis History of Any Multi-Drug Resistant Organisms: None Reported Past Surgical History: Appendectomy, Orthopedic Surgery, Tonsillectomy Additional Past Surgical History / Comment(s): shoulder Past Psychological History: No Psychological Hx Reported Smoking Status: Former smoker Past Alcohol Use History: None Reported Past Drug Use History: None Reported Medications and Allergies Home Medications Medication Instructions Recorded Confirmed Type Cholecalciferol [Vitamin D3] 5,000 unit PO DAILY 09/18/16 04/06/20 History Lansoprazole [Prevacid] 30 mg PO BID 09/18/16 04/06/20 History Losartan Potassium [Cozaar] 100 mg PO DAILY 09/18/16 04/06/20 History Nitroglycerin Sl Tabs [Nitrostat] 0.4 mg SUBLINGUAL Q5M PRN #100 tab 09/18/16 04/06/20 Rx Simvastatin [Zocor] 20 mg PO HS 09/18/16 04/06/20 History hydroCHLOROthiazide [Hydrodiuril] 25 mg PO DAILY 09/18/16 04/06/20 History Aspirin EC [Ecotrin Low Dose] 81 mg PO HS 04/06/20 04/06/20 History Ipratropium-Albuterol Nebulize 3 ml INHALATION RT-QID PRN 04/06/20 04/06/20 History [Duoneb 0.5 mg-3 mg/3 ml Soln] Montelukast Sodium [Singulair] 10 mg PO DAILY 04/06/20 04/06/20 History Allergies Allergy/AdvReac Type Severity Reaction Status Date / Time hydrocodone Allergy Rash/Hives Verified 04/06/20 14:57 latex Allergy Rash/Hives Verified 04/07/20 00:44 meperidine [From Demerol] Allergy Unknown Verified 04/06/20 14:57 oxycodone Allergy Unknown Verified 04/06/20 14:57 tramadol Allergy Unknown Verified 04/06/20 14:57 pirfenidone AdvReac Kidney Verified 04/06/20 15:04 Pain (brand Esbriet) Physical Exam Vitals: Vital Signs Temp Pulse Pulse Resp BP BP Pulse Ox 04/07/20 08:49 85 04/07/20 08:39 85 04/07/20 08:00 97.9 F 92 18 82/42 100 04/07/20 04:00 88 17 88/51 96 04/07/20 00:00 97.4 F L 64 17 103/51 95 04/06/20 20:00 97.3 F L 88 17 88/52 95 04/06/20 19:21 94 04/06/20 19:19 70 20 96/44 91 L 04/06/20 19:10 100 04/06/20 17:20 90 20 106/79 04/06/20 17:00 92 20 92/58 04/06/20 14:13 98.3 F 48 L 26 H 84/58 91 L Intake and Output 04/06/20 04/07/20 04/07/20 22:59 06:59 14:59 Output Total 0 Balance 0 Output: Urine 0 Other: Voiding Method Bedside Commode Bedside Commode Weight 70.307 kg 68 kg GENERAL EXAM: Alert, pleasant 69-year-old female patient, on 5 L nasal cannula, comfortable in no apparent distress. HEAD: Normocephalic. EYES: Normal reaction of pupils, equal size. NOSE: Clear with pink turbinates. THROAT: No erythema or exudates. NECK: No masses, no JVD. CHEST: No chest wall deformity. LUNGS: Equal air entry with coarse Velcro crackles right greater than left CVS: S1 and S2 normal with no audible murmur, regular rhythm. ABDOMEN: No hepatosplenomegaly, normal bowel sounds, no guarding or rigidity. SPINE: No scoliosis or deformity SKIN: No rashes CENTRAL NERVOUS SYSTEM: No focal deficits, tone is normal in all 4 extremities. EXTREMITIES: There is 2-3 + peripheral edema. Open wounds, blisters. Positive clubbing, no cyanosis. Peripheral pulses are intact. Results - Laboratory Findings CBC and BMP: 04/07/20 06:31 04/07/20 06:31 PT/INR, D-dimer PT 12.7 sec (9.0-12.0) H 04/06/20 17:28 INR 1.3 (<1.2) H 04/06/20 17:28 Abnormal lab findings: Abnormal Labs 04/06/20 04/06/20 04/06/20 16:01 16:01 16:01 Hgb 16.3 H Hct 50.8 H MCV 102.3 H MCHC RDW 15.9 H Neutrophils # 8.6 H Lymphocytes # 0.4 L PT INR Chloride 109 H Carbon Dioxide 16 L BUN 84 H Creatinine 1.87 H Glucose 125 H Total Bilirubin 1.4 H Troponin I Albumin 3.3 L Urine Appearance Cloudy H Urine Protein Trace H Ur Leukocyte Esterase Large H Urine WBC 111 H Urine Bacteria Many H Hyaline Casts 10 H Urine Mucus Few H 04/06/20 04/06/20 04/07/20 16:01 17:28 06:31 Hgb Hct 47.7 H MCV 101.3 H MCHC 30.4 L RDW 15.9 H Neutrophils # Lymphocytes # 0.5 L PT 12.7 H INR 1.3 H Chloride Carbon Dioxide BUN Creatinine Glucose Total Bilirubin Troponin I 0.069 H* Albumin Urine Appearance Urine Protein Ur Leukocyte Esterase Urine WBC Urine Bacteria Hyaline Casts Urine Mucus 04/07/20 06:31 Hgb Hct MCV MCHC RDW Neutrophils # Lymphocytes # PT INR Chloride 109 H Carbon Dioxide BUN 82 H Creatinine 1.90 H Glucose 100 H Total Bilirubin Troponin I Albumin Urine Appearance Urine Protein Ur Leukocyte Esterase Urine WBC Urine Bacteria Hyaline Casts Urine Mucus - Diagnostic Findings Chest x-ray: image reviewed Assessment and Plan Assessment: 1 Acute on chronic hypoxemic respiratory failure secondary to idiopathic pulmonary fibrosis, fluid volume overload/pulmonary edema, possible right lower lobe pneumonia 2 Urinary tract infection with possible sepsis and hypotension, cultures pending 3 Acute renal failure secondary to above 4 Edema and ulceration of the bilateral lower extremities, cultures pending 5 Idiopathic pulmonary fibrosis, trialed on Esbriet at two different doses in the out patient setting, discontinued due to right-sided flank pain and GI symptoms 6 Chronic hypoxemic respiratory failure secondary to above. On 2 L/m per nasal cannula in the outpatient setting 7 History of hypertension 8 Hyperlipidemia 9 Gastroesophageal reflux disease Plan The patient was seen and evaluated by Dr. Shaw Chest x-ray and labs reviewed Continue bronchodilators Continue antibiotics Add prednisone 10 mg daily Would benefit from diuretics, continue to follow renal function Nephrology is on the case Titrate down the FiO2 as tolerated We will continue to follow and make further recommendations based on her clinical status I, the cosigning physician, performed a history & physical examination of the patient. Lungs sounds with coarse Velcro crackles right greater than left. Maintaining good O2 saturations in the 90s on 5 L/m per nasal cannula. I discussed the assessment and plan of care with my nurse practitioner, Zuleika Anton. I attest to the above consultation as dictated by her. Time with Patient: Greater than 30
[2020-04-07] MEDS: FUROSEMIDE 10 MG/ML 4 ML VIAL IV SCH ×2 (13:05→21:04)
--- NOTE | 2020-04-07 14:35 | CONS ---
CONSULTATION REASON FOR CONSULT: Renal failure. HISTORY OF PRESENT ILLNESS: Patient is a 69-year-old female who was admitted yesterday with complaints of shortness of breath and increased lower extremity edema. She also had mainly abdominal pain mostly towards the right side. She has an underlying history of pulmonary fibrosis. The patient denies previous history of kidney disease, however, she states that she was told recently her kidney numbers were slightly off. REVIEW OF LABS: Shows serum creatinine 1.8 on admission, now it is at 1.9. However, previous labs on March 29 show creatinine of 2.5 and prior to that in February, creatinine was 1.4 to 1.7 mg/dL. In July of 2019 serum creatinine has been mostly 1.2-1.4. The patient denies use of any nonsteroidal anti-inflammatory agents. Her chest x-ray shows CHF and patient is currently being diuresed. Blood pressures have been on the lower side with systolic 88-82 mmHg. At home patient was maintained on Cozaar 100 mg daily and hydrochlorothiazide. PAST MEDICAL HISTORY: Significant for hypertension, pulmonary fibrosis, gastroesophageal reflux disease, hyperlipidemia. PAST SURGICAL HISTORY: Appendectomy, tonsillectomy, shoulder surgery. SOCIAL HISTORY: Negative for smoking, drug abuse or alcohol abuse. MEDICATIONS: Medications prior to admission included Cozaar, Zocor, Prevacid, vitamin D3, hydrochlorothiazide, aspirin, Singulair, Nitrostat. ALLERGIES: Include VICODIN, LATEX, DEMEROL, OXYCODONE, TRAMADOL, PIRFENIDONE. REVIEW OF SYSTEMS: As per HPI. Other systems negative. EXAMINATION: Patient is currently comfortable, awake, she is not in any acute distress. Blood pressure was 82/42, heart rate 92 per minute, she is afebrile. Examination of the heart S1, S2. Examination of the lungs, bilateral breath sounds are heard. Abdomen is soft, nontender. Examination of lower extremities shows edema 2+ bilaterally. Chronic skin changes noted. [employer]PING SUPER[employer]OR exam grossly intact. LABS: Show sodium 141, potassium 4.3, chloride 109, CO2 is 23 BUN 82, creatinine 1.9, hemoglobin 14.5 g/dL. UA shows WBCs 111, trace protein is seen and no blood is noted. Troponin 0.069. ASSESSMENT: 1. Acute kidney injury secondary to hypotension hypoperfusion in the setting of use of angiotensin receptor blockers. There is also a cardiorenal component. Patient is currently being diuresed. I will discontinue the Cozaar as systolic blood pressure is 82 mmHg. UA shows trace protein and there is no evidence of obstruction noted on the CT scan. Need to record accurate Is and Os. 2. Chronic kidney disease. Previous creatinine 1.4-1.2 in July of 2019, but staying slightly higher at around 2 early part of March of 2020 and 1.4 and 1.7 in February of 2020. 3. Metabolic acidosis currently improved, etiology was renal failure. 4. Pulmonary fibrosis, maintained on prednisone. 5. Volume overload. PLAN: DC Cozaar. Maintain patient on IV Lasix. Continue antibiotics. Follow up on urine cultures. Check echocardiogram. Repeat labs in a.m. and avoid nephrotoxic medications. Thank you for this consultation. Will continue to follow the patient with you during her hospitalization. MMODL / IJN: [id number] /
--- NOTE | 2020-04-07 15:01 | P.CRDCN ---
History of Present Illness History of present illness: This is Chely Colmenares PA-C dictating a consult on this patient The patient was interviewed and examined by me as well as by Dr. Edward Case discussed with Dr. Edward and he agrees with the plan of care HPI Patient is a 69-year-old female with a history significant for pulmonary fibrosis, hypertension, and CKD who presented with complaints of abdominal pain. She is a patient of Dr. Myles. She states that he recently started her on Lasix and since then she has actually noticed worsening lower extremity edema. She follows with Dr. Camara and was started on a new medication, Esbriet for pulmonary fibrosis a few weeks ago. She has had intermittent right-sided flank pain for the last week and attributed it to that medication so she stopped it. She denied any nausea, vomiting or diarrhea. She is short of breath at baseline due to her pulmonary fibrosis but denied any worsening shortness of breath. She has had a cough for the last one to 2 weeks which is productive of "yellow grimes" sputum. Denies any chest pain or chest pressure. She has slept in a recliner for the last several months and she states it is because she can breathe more comfortably. She was worried about the abdominal pain and worried it could be her kidneys so she came in for evaluation. On arrival to the emergency department patient was afebrile, pulse 48, respirations 26, blood pressure 84/58, oxygen saturation 91% on [address] of the abdomen and pelvis showed no acute abnormality but extensive bilateral pulmonary infiltrates and a large right pleural effusion. EKG showed sinus tachycardia with PVCs, T-wave inversions in the inferior leads and nonspecific changes in the lateral precordial leads. Labs revealed BUN 84, creatinine 1.87, troponin 0.069 BNP 28743. Patient was admitted for further workup and treatment. He has been started on antibiotics. Patient seen and examined sitting up in the chair. Abdominal pain has improved. Denies any chest pain. Breathing is about the same. No dizziness. ROS: No fevers, chills or rigors, Positive for cough Positive for abdominal pain, no nausea, vomiting or diarrhea, no hematuria, dysuria, no musculoskeletal complaints, no strokes or seizures, no skin lesions. EXAMINATION: Patient is afebrile, pulse in the 70s, respirations 20, blood pressure 86/47, oxygen saturation 95% on 5 L nasal cannula Patient seen and examined sitting up in the chair, in no acute distress Lungs with crackles at the bases bilaterally Heart is regular, no audible murmurs Mild lower extremity edema bilaterally with wounds REVIEW OF LABS, ECG & MEDICAL DATA WBC 8.7, hemoglobin 14.5, platelets 205, potassium 4.3, BUN 82, creatinine 1.9 Previous echocardiogram shows EF 60-65% IMPRESSION / ASSESSMENT: #1 symptoms of shortness of breath likely multifactorial, combination of fluid overload, pulmonary fibrosis, possible pneumonia #2 acute kidney injury on chronic kidney disease #3 history of hypertension, currently hypotensive #4 history of pulmonary fibrosis #5 lower extremity wounds #6 urinary tract infection and possible sepsis #7 abnormal troponin in the setting of acute kidney injury and hypotension, likely related to hypoperfusion, patient denying chest pain PLAN: Diuresis per nephrology Obtain 2-D echocardiogram and Doppler studies to assess cardiac structure and function Continue aspirin and statins Monitor BMP on the daily weights I's and O's Past Medical History Past Medical History: GERD/Reflux, Hyperlipidemia, Hypertension, Pneumonia Additional Past Medical History / Comment(s): Pulm fibrosis History of Any Multi-Drug Resistant Organisms: None Reported Past Surgical History: Appendectomy, Orthopedic Surgery, Tonsillectomy Additional Past Surgical History / Comment(s): shoulder Past Psychological History: No Psychological Hx Reported Smoking Status: Former smoker Past Alcohol Use History: None Reported Past Drug Use History: None Reported Medications and Allergies Home Medications Medication Instructions Recorded Confirmed Type Cholecalciferol [Vitamin D3] 5,000 unit PO DAILY 09/18/16 04/06/20 History Lansoprazole [Prevacid] 30 mg PO BID 09/18/16 04/06/20 History Losartan Potassium [Cozaar] 100 mg PO DAILY 09/18/16 04/06/20 History Nitroglycerin Sl Tabs [Nitrostat] 0.4 mg SUBLINGUAL Q5M PRN #100 tab 09/18/16 04/06/20 Rx Simvastatin [Zocor] 20 mg PO HS 09/18/16 04/06/20 History hydroCHLOROthiazide [Hydrodiuril] 25 mg PO DAILY 09/18/16 04/06/20 History Aspirin EC [Ecotrin Low Dose] 81 mg PO HS 04/06/20 04/06/20 History Ipratropium-Albuterol Nebulize 3 ml INHALATION RT-QID PRN 04/06/20 04/06/20 History [Duoneb 0.5 mg-3 mg/3 ml Soln] Montelukast Sodium [Singulair] 10 mg PO DAILY 04/06/20 04/06/20 History Allergies Allergy/AdvReac Type Severity Reaction Status Date / Time hydrocodone Allergy Rash/Hives Verified 04/06/20 14:57 latex Allergy Rash/Hives Verified 04/07/20 00:44 meperidine [From Demerol] Allergy Unknown Verified 04/06/20 14:57 oxycodone Allergy Unknown Verified 04/06/20 14:57 tramadol Allergy Unknown Verified 04/06/20 14:57 pirfenidone AdvReac Kidney Verified 04/06/20 15:04 Pain (brand Esbriet) Physical Exam Vitals: Vital Signs Temp Pulse Pulse Resp BP BP Pulse Ox 04/07/20 12:43 76 04/07/20 12:33 74 04/07/20 12:00 72 20 86/47 95 04/07/20 08:49 85 04/07/20 08:39 85 04/07/20 08:00 97.9 F 92 18 82/42 100 04/07/20 04:00 88 17 88/51 96 04/07/20 00:00 97.4 F L 64 17 103/51 95 04/06/20 20:00 97.3 F L 88 17 88/52 95 04/06/20 19:21 94 04/06/20 19:19 70 20 96/44 91 L 04/06/20 19:10 100 04/06/20 17:20 90 20 106/79 04/06/20 17:00 92 20 92/58 Intake and Output 04/07/20 04/07/20 04/07/20 06:59 14:59 22:59 Output Total 0 300 Balance 0 -300 Output: Urine 0 200 Post Void Residual 100 Other: Voiding Method Bedside Commode # Bowel Movements 1 Weight 68 kg 68 kg Results 04/07/20 06:31 04/07/20 06:31 Cardiac Enzymes 04/06/20 04/06/20 Range/Units 16:01 16:01 AST 24 (14-36) U/L Troponin I 0.069 H* (0.000-0.034) ng/mL Coagulation 04/06/20 Range/Units 17:28 PT 12.7 H (9.0-12.0) sec APTT 23.9 (22.0-30.0) sec CBC 04/06/20 04/07/20 Range/Units 16:01 06:31 WBC 9.7 8.7 (3.8-10.6) k/uL RBC 4.97 4.71 (3.80-5.40) m/uL Hgb 16.3 H 14.5 (11.4-16.0) gm/dL Hct 50.8 H 47.7 H (34.0-46.0) % Plt Count 218 205 (150-450) k/uL Comprehensive Metabolic Panel 04/06/20 04/07/20 Range/Units 16:01 06:31 Sodium 138 141 (137-145) mmol/L Potassium 4.0 4.3 (3.5-5.1) mmol/L Chloride 109 H 109 H (98-107) mmol/L Carbon Dioxide 16 L 23 (22-30) mmol/L BUN 84 H 82 H (7-17) mg/dL Creatinine 1.87 H 1.90 H (0.52-1.04) mg/dL Glucose 125 H 100 H (74-99) mg/dL Calcium 9.3 8.8 (8.4-10.2) mg/dL AST 24 (14-36) U/L ALT 15 (4-34) U/L Alkaline Phosphatase 88 (38-126) U/L Total Protein 7.5 (6.3-8.2) g/dL Albumin 3.3 L (3.5-5.0) g/dL Current Medications Generic Name Dose Route Start Last Admin Trade Name Freq PRN Reason Stop Dose Admin Albuterol/Ipratropium 3 ml 04/06/20 20:00 04/07/20 12:33 Duoneb 0.5 Mg-3 Mg/3 Ml Soln INHALATION 3 ml RT-QID DESI Administration Aspirin 81 mg 04/06/20 21:00 04/06/20 20:28 Aspirin PO 81 mg HS DESI Administration Atorvastatin Calcium 10 mg 04/06/20 21:00 04/06/20 20:28 Lipitor PO 10 mg HS DESI Administration Azithromycin 500 mg 04/07/20 17:53 Zithromax PO DAILY DESI Cholecalciferol 5,000 unit 04/07/20 09:00 04/07/20 08:44 Vitamin D3 (25 Mcg = 1000 Iu) PO 5,000 unit DAILY DESI Administration Furosemide 40 mg 04/07/20 11:45 04/07/20 13:05 Lasix IV 40 mg Q12HR DESI Administration Heparin Sodium (Porcine) 5,000 unit 04/06/20 21:00 04/07/20 08:44 Heparin SQ 5,000 unit Q12HR DESI Administration Sodium Chloride 1,000 mls @ 20 mls/hr 04/06/20 18:00 04/07/20 01:50 Saline 0.9% IV Not Given .Q24H DESI Ceftriaxone Sodium 1 gm/ 50 mls @ 100 mls/hr 04/07/20 17:53 Sodium Chloride IVPB 04/10/20 17:54 Q24HR DESI Miscellaneous Information 1 each 04/06/20 17:52 Pneumonia Protocol Utilized PO ONCE PRN Per Protocol Montelukast Sodium 10 mg 04/07/20 09:00 04/07/20 08:45 Singulair PO 10 mg DAILY DESI Administration Nitroglycerin 0.4 mg 04/06/20 18:05 Nitrostat SUBLINGUAL Q5M PRN Chest Pain Pantoprazole Sodium 40 mg 04/07/20 07:30 04/07/20 06:07 Protonix PO Not Given AC-BRKFST DESI Prednisone 10 mg 04/07/20 10:15 04/07/20 10:19 PO 10 mg DAILY DESI Administration Intake and Output 04/07/20 04/07/20 04/07/20 06:59 14:59 22:59 Output Total 0 300 Balance 0 -300 Output: Urine 0 200 Post Void Residual 100 Other: Voiding Method Bedside Commode # Bowel Movements 1 Weight 68 kg 68 kg Patient Weight 04/08/20 06:59 Weight 68 kg 04/07/20 06:31 04/07/20 06:31
[2020-04-07] MEDS: AZITHROMYCIN 500 MG TAB PO SCH (17:46)
[2020-04-07] MEDS: ASPIRIN 81 MG PO SCH (21:04)
[2020-04-07] MEDS: MIDODRINE 5 MG TAB PO SCH (21:04)
[2020-04-07] MEDS: ATORVASTATIN 10 MG TAB PO SCH (21:04)
[2020-04-08] MEDS: SODIUM CHLORIDE 0.9% 1,000 ML IV SCH (03:31)
[2020-04-08] MEDS: MIDODRINE 5 MG TAB PO SCH ×3 (06:01→18:08)
[2020-04-08] MEDS: PANTOPRAZOLE 40 MG TABLET PO SCH (06:01)
[2020-04-08 07:11] LABS: Potassium 4.1 mmol/L (3.5-5.1)
[2020-04-08 07:12] LABS: Calcium 8.9 mg/dL (8.4-10.2)
[2020-04-08] MEDS: IPRATROPIUM-ALBUTEROL 3 ML NEB INHALATION SCH ×4 (07:29→19:32)
[2020-04-08] MEDS ORDERED: MIDODRINE 5 MG TAB PO SCH ×2 (07:30→19:20)
[2020-04-08 07:52] LABS: Basophils % (A) 0 %; Eosinophils # (A) 0.1 k/uL (0-0.7); Eosinophils % (A) 1 %; HCT 46.9 % (34.0-46.0); HGB 14.6 gm/dL (11.4-16.0); Hypochromasia Moderate; Lymphocytes # (A) 0.7 k/uL (1.0-4.8); Lymphocytes % (A) 7 %; MCH 31.5 pg (25.0-35.0); MCHC 31.1 g/dL (31.0-37.0); MCV 101.3 fL (80.0-100.0); Macrocytosis Slight; Mean Platelet Volume 9.7; Monocytes # (A) 0.6 k/uL (0-1.0); Monocytes % (A) 6 %; Neutrophils # (A) 8.5 k/uL (1.3-7.7); Neutrophils % (A) 85 %; Platelet Count 191 k/uL (150-450); RBC 4.63 m/uL (3.80-5.40); RDW 15.9 % (11.5-15.5)
--- NOTE | 2020-04-08 09:00 | ECHOF ---
Referral Reason:chf MEASUREMENTS -------- HEIGHT: 162.6 cm WEIGHT: 67.6 kg BP: 88/51 IVSd: 1.4 cm (0.6 - 1.1) LVIDd: 3.1 cm (3.9 - 5.3) LVPWd: 1.4 cm (0.6 - 1.1) IVSs: 1.7 cm LVIDs: 2.4 cm LVPWs: 1.7 cm LA Diam: 2.9 cm (2.7 - 3.8) RVIDd: 4.3 cm (< 3.3) Ao Diam: 2.8 cm (2.0 - 3.7) AV Cusp: 2.1 cm (1.5 - 2.6) EPSS: 0.8 cm MV E César: 0.60 m/s MV DecT: 240 ms MV A César: 0.78 m/s MV E/A Ratio: 0.77 RAP: 15.00 mmHg RVSP: 78.00 mmHg MV EF SLOPE: 69.20 mm/s (70 - 150) MV EXCURSION: 16.36 mm (> 18.000) FINDINGS -------- Sinus rhythm. This was a technically adequate study. The left ventricular size is normal. There is moderate concentric left ventricular hypertrophy. O verall left ventricular systolic function is normal with, an EF between 60 - 65 %. There is septal flattening in diastole and systole which is consistent with right ventricular pressure and volume ove rload. The right ventricle is severely enlarged. The left atrial size is normal. The right atrium is normal in size. Interatrial and interventricular septum intact. Aortic valve is trileaflet and is mildly thickened. The mitral valve leaflets are mildly thickened. Moderate to severe tricuspid regurgitation present. There is severe pulmonary hypertension. The r ight ventricular systolic pressure, as measured by Doppler, is 78.00mmHg. Moderate pulmonic regurgitation. The aortic root size is normal. Normal inferior vena cava with less than 50% inspiratory collapse consistent with estimated right atr ial pressure of 15 mmHg. There is no pericardial effusion. CONCLUSIONS -------- 1. The left ventricular size is normal. 2. There is moderate concentric left ventricular hypertrophy. 3. Overall left ventricular systolic function is normal with, an EF between 60 - 65 %. 4. There is septal flattening in diastole and systole which is consistent with right ventricular pres sure and volume overload. 5. The right ventricle is severely enlarged. 6. Aortic valve is trileaflet and is mildly thickened. 7. The mitral valve leaflets are mildly thickened. 8. Moderate to severe tricuspid regurgitation present. 9. There is severe pulmonary hypertension. 10. The right ventricular systolic pressure, as measured by Doppler, is 78.00mmHg. 11. Moderate pulmonic regurgitation. 12. Normal inferior vena cava with less than 50% inspiratory collapse consistent with estimated right atrial pressure of 15 mmHg. 13. There is no pericardial effusion. SENIOR CREDIT ANALYST: Roxanne Matamoros RDCS
[2020-04-08] MEDS: HEPARIN SODIUM,PORCINE 5,000 UNIT/ML 1 ML VIAL SQ SCH ×2 (09:53→20:55)
[2020-04-08] MEDS: FUROSEMIDE 10 MG/ML 4 ML VIAL IV SCH ×2 (09:53→20:55)
[2020-04-08] MEDS: MONTELUKAST 10 MG TAB PO SCH (09:54)
[2020-04-08] MEDS: AZITHROMYCIN 500 MG TAB PO SCH (09:54)
[2020-04-08] MEDS: predniSONE 10 MG TAB PO SCH (09:54)
[2020-04-08] MEDS: CHOLECALCIFEROL 1,000 UNIT TAB PO SCH (09:54)
--- NOTE | 2020-04-08 10:39 | P.CONS ---
History of Present Illness - Reason for Consult Consult date: 04/07/20 Sepsis Requesting physician: Reji Aj - Chief Complaint Right-sided abdominal pain and lower extremity swelling x days - History of Present Illness Patient is 69-year-old female with a past medical history significant for idiopathic pulmonary fibrosis this patient is on home O2 patient mentioned she was recently started on her diuretics however she started having more swelling in her leg has a primary care physician took her off the diuretics subsequently she is having more swelling in her lower extremity and some superficial ulceration on the left leg with the patient has been treated with the triple antibiotic cream at night and leaving it to air dry during the day the patient started having the lower abdominal pain most of the right side described more of a dull aching pain 3-4 out of 10 and no radiation some nausea but no vomiting no diarrhea no constipation denies any high-grade fever is also complaining of shortness of breath on minimal exertion and did have a dry cough not be Any sputum denies high-grade fever with these symptoms for the patient presented to the ER the patient was evaluated on rounds and the patient has been afebrile patient did have a normal white count she did have a CT of abdominal pelvis which show any intra-abdominal abnormality however did shows bilateral pleural effusion more on the right side with some compressive atelectasis versus pneumonia patient did have a positive UA she was started on Rocephin and Zithromax infectious disease was consulted with concern for possible sepsis and lower extremity wound Review of Systems Positive point has been mentioned in the HPI rest of the systems are negative Past Medical History Past Medical History: GERD/Reflux, Hyperlipidemia, Hypertension, Pneumonia Additional Past Medical History / Comment(s): Pulm fibrosis History of Any Multi-Drug Resistant Organisms: None Reported Past Surgical History: Appendectomy, Orthopedic Surgery, Tonsillectomy Additional Past Surgical History / Comment(s): shoulder Past Psychological History: No Psychological Hx Reported Smoking Status: Former smoker Past Alcohol Use History: None Reported Past Drug Use History: None Reported Medications and Allergies Home Medications Medication Instructions Recorded Confirmed Type Cholecalciferol [Vitamin D3] 5,000 unit PO DAILY 09/18/16 04/06/20 History Lansoprazole [Prevacid] 30 mg PO BID 09/18/16 04/06/20 History Losartan Potassium [Cozaar] 100 mg PO DAILY 09/18/16 04/06/20 History Nitroglycerin Sl Tabs [Nitrostat] 0.4 mg SUBLINGUAL Q5M PRN #100 tab 09/18/16 04/06/20 Rx Simvastatin [Zocor] 20 mg PO HS 09/18/16 04/06/20 History hydroCHLOROthiazide [Hydrodiuril] 25 mg PO DAILY 09/18/16 04/06/20 History Aspirin EC [Ecotrin Low Dose] 81 mg PO HS 04/06/20 04/06/20 History Ipratropium-Albuterol Nebulize 3 ml INHALATION RT-QID PRN 04/06/20 04/06/20 History [Duoneb 0.5 mg-3 mg/3 ml Soln] Montelukast Sodium [Singulair] 10 mg PO DAILY 04/06/20 04/06/20 History Allergies Allergy/AdvReac Type Severity Reaction Status Date / Time hydrocodone Allergy Rash/Hives Verified 04/06/20 14:57 latex Allergy Rash/Hives Verified 04/07/20 00:44 meperidine [From Demerol] Allergy Unknown Verified 04/06/20 14:57 oxycodone Allergy Unknown Verified 04/06/20 14:57 tramadol Allergy Unknown Verified 04/06/20 14:57 pirfenidone AdvReac Kidney Verified 04/06/20 15:04 Pain (brand Esbriet) Physical Exam Vitals: Vital Signs Temp Pulse Pulse Resp BP Pulse Ox 04/07/20 21:07 80 04/07/20 20:53 76 04/07/20 20:00 101 H 20 101/56 96 04/07/20 16:32 78 04/07/20 16:20 78 04/07/20 15:50 97.7 F 79 20 81/48 96 04/07/20 12:43 76 04/07/20 12:33 74 04/07/20 12:00 72 20 86/47 95 04/07/20 08:49 85 04/07/20 08:39 85 04/07/20 08:00 97.9 F 92 18 82/42 100 04/07/20 04:00 88 17 88/51 96 04/07/20 00:00 97.4 F L 64 17 103/51 95 Intake and Output 04/07/20 04/07/20 04/07/20 06:59 14:59 22:59 Intake Total 240 236 Output Total 0 300 525 Balance 0 -60 -289 Intake: Oral 240 236 Output: Urine 0 200 525 Post Void Residual 100 Other: Voiding Method Bedside Commode Bedside Commode # Voids 1 # Bowel Movements 1 Weight 68 kg 68 kg GENERAL DESCRIPTION: Elderly female up in the chair, no distress. No tachypnea or accessory muscle of respiration use. HEENT: Shows Pallor , no scleral icterus. Oral mucous membrane is dry. No pharyngeal erythema or thrush NECK: Trachea central, no thyromegaly. LUNGS: Unlabored breathing. Decreased breath sounds at the base. No wheeze or crackle. HEART: S1, S2, regular rate and rhythm. No loud murmur ABDOMEN: Soft, no tenderness , guarding or rigidity, no organomegaly EXTREMITIES: 3+ edema feet bilaterally, left leg did have a superficial ulceration with some slough tissue no significant redness SKIN: No rash, no masses palpable. NEUROLOGICAL: The patient is awake, alert, oriented x3, mood and affect normal. Results CBC & Chem 7: 04/08/20 05:59 04/08/20 05:59 Labs: Abnormal Lab Results - Last 24 Hours (Table) 04/07/20 04/07/20 Range/Units 06:31 06:31 Hct 47.7 H (34.0-46.0) % MCV 101.3 H (80.0-100.0) fL MCHC 30.4 L (31.0-37.0) g/dL RDW 15.9 H (11.5-15.5) % Lymphocytes # 0.5 L (1.0-4.8) k/uL Chloride 109 H (98-107) mmol/L BUN 82 H (7-17) mg/dL Creatinine 1.90 H (0.52-1.04) mg/dL Glucose 100 H (74-99) mg/dL Microbiology - Last 24 Hours (Table) 04/06/20 16:01 Urine Culture - Preliminary Urine,Voided Gram Neg Bacilli 04/06/20 18:21 Blood Culture - Preliminary Blood No Growth after 24 hours 04/06/20 18:07 Gram Stain - Preliminary Leg - Left Wound Culture - Preliminary Gram Neg Bacilli Assessment and Plan Assessment: 1-patient presented to hospital with generalized weakness shortness of breath did have a cough and abdominal pain so for the patient is afebrile white count is normal CT abdominal pelvis did not show any acute abdominal pathology however did shows evidence of bilateral effusion more on the right side and possible compressive atelectasis underlying pneumonia But not entirely excluded 2-positive UA and minimal urinary symptom possible symptomatic urinary tract infection From enteric gram-negative pathogen 3-left leg wound with no significant cellulitis (1) Leg wound, left Current Visit: Yes Status: Acute Code(s): S81.802A - UNSPECIFIED OPEN WOUND, LEFT LOWER LEG, INITIAL ENCOUNTER SNOMED Code(s): 398333063 (2) Pneumonia Current Visit: Yes Status: Acute Code(s): J18.9 - PNEUMONIA, UNSPECIFIED ORGANISM SNOMED Code(s): 344125482 (3) Urinary tract infection Current Visit: Yes Status: Acute Code(s): N39.0 - URINARY TRACT INFECTION, SITE NOT SPECIFIED SNOMED Code(s): 46777032 Plan: 1- local wound care to the left leg wound with Medahoney followed by moist dressing that Gee wrap for compression 2-Rocephin 1 g daily and Zithromax to continue We will follow on clinical condition and cultures to further adjust medication if needed Thank you for this consultation will follow this patient with you Time with Patient: Greater than 30
--- NOTE | 2020-04-08 11:12 | PN ---
PROGRESS NOTE Patient is seen for followup for acute kidney injury. She was quite hypotensive with significant lower extremity edema. The patient's blood pressure is improved with the initiation of midodrine. She has had good urine output. There is no evidence of urine retention. Serum creatinine is improved from 1.9-1.7 today. PHYSICAL EXAMINATION: On examination, patient is comfortable. Blood pressure was 105/59, heart rate 87 per minute, she is afebrile. Examination of the heart S1, S2. Examination of the lungs, bilateral breath sounds are heard. Decreased breath sounds at bases. Basal crackles are heard. Abdomen is soft, obese, nontender. Examination of lower extremities shows edema 3+ bilaterally. Superficial ulcers noted on the left leg. [employer] exam grossly intact. LAB: Show sodium 139, potassium 4.1, chloride 107 BUN 81, creatinine 1.72, hemoglobin 14.6 g/dL. ASSESSMENT: 1. Acute kidney injury secondary to hypotension hypoperfusion, currently nonoliguric and improving. 2. The UA is quite benign and there is no evidence of obstruction noted on the CT scan. 3. Chronic kidney disease, baseline creatinine 1.2-1.4 in July of 2019, slightly higher in early part of March, staying around 2 mg/dL. 4. Metabolic acidosis secondary to renal failure, currently improved. 5. Pulmonary fibrosis, maintained on steroids. 6. Volume overload, being diuresed. PLAN: Continue with the IV Lasix. Continue with midodrine. Monitor urine output. Monitor electrolytes. Repeat labs in a.m. Avoid nephrotoxic agents. MMODL / IJN: [id number] /
--- NOTE | 2020-04-08 13:21 | P.PN ---
Subjective Progress Note Date: 04/08/20 Principal diagnosis: Acute on chronic hypoxemic respiratory failure secondary to idiopathic pulmonary fibrosis, fluid volume overload, right lower lobe consolidation This is a very pleasant 69-year-old female patient follows with Dr. Melo as her primary care provider. She has a history of hypertension, hyperlipidemia, gastroesophageal reflux disease. She is a lifelong nonsmoker. She does follow with Dr. Camara in our office for chronic hypoxemic respiratory failure with class IV dyspnea secondary to idiopathic pulmonary fibrosis. Her FVC is 61%. She had been initiated on pirfenidone/Esbriet at 267 mg that was to be titrated to 3 tablets 3 times a day. The patient started having GI symptoms and recovered. He trialed her again at a lower dose but she developed right-sided flank pain that she related to her kidneys and she stopped the medication again. She is maintained on oxygen at 2 L/m in the outpatient setting. She presented to the emergency room yesterday with ongoing right lower abdominal discomfort and right flank pain. She also had noticed increased swelling of the lower extremities. No worsening shortness of breath or cough. Computed tomography scan of the abdomen and pelvis revealed no acute abnormalities. There is noted extensive bilateral pulmonary infiltrates with large right pleural effusion. Today's chest x-ray reveals mild pulmonary edema. Right basilar airspace disease representing confluent edema versus pneumonia. Underlying fibrosis. She is seen today in consultation on the selective care unit. She is currently sitting up in a chair at the bedside. States her breathing is at her baseline while at rest. She is maintaining O2 saturations in the high 90s on 5 L/m per nasal cannula. She's been afebrile. She does have significant lower extremity edema with open wounds. Cultures pending. Urine culture pending as well. ProBNP 34,300. Troponin 0.069. Albumin 3.3. White count 8.7. Hemoglobin 14.5. Sodium 141. Potassium 4.3. Bicarb 23. Creatinine 1.90. She's been initiated on ceftriaxone and azithromycin. Bronchodilators. Oral prednisone. Echocardiogram pending. The patient is seen today 04/08/2020 in follow-up on the selective care unit. She is currently sitting up in a chair at the bedside. Awake and alert in no acute distress. Breathing a bit easier today compared to yesterday. No worsening shortness of breath, cough or congestion. She's been maintained on prednisone, diuretics, antibiotics. Left leg wound culture is positive for gram-negative bacilli. Urine culture positive for gram-negative bacilli. White count 10.0. Hemoglobin 14.6. Sodium 139. Potassium 4.1. Creatinine 1.72. Echocardiogram revealed preserved left ventricular systolic function with ejection fraction 66 5%. Moderate concentric LVH. Severely enlarged right ventricle. Severe pulmonary hypertension. RVSP of 78 mmHg. Objective - Vital Signs Vital signs: Vital Signs Temp 98.1 F 04/08/20 08:00 Pulse 82 04/08/20 11:53 Resp 18 04/08/20 08:00 BP 88/54 04/08/20 08:00 Pulse Ox 93 L 04/08/20 08:00 Intake & Output 04/07/20 04/08/20 04/08/20 18:59 06:59 18:59 Intake Total 476 Output Total 750 475 Balance -274 -475 Weight 68 kg 68.7 kg Intake: Oral 476 Output: Urine 650 475 Post Void Residual 100 Other: Voiding Method Bedside Commode Bedside Commode # Voids 2 0 # Bowel Movements 1 - Exam GENERAL EXAM: Alert, pleasant 69-year-old female patient, on 3 L nasal cannula, comfortable in no apparent distress. HEAD: Normocephalic. EYES: Normal reaction of pupils, equal size. NOSE: Clear with pink turbinates. THROAT: No erythema or exudates. NECK: No masses, no JVD. CHEST: No chest wall deformity. LUNGS: Equal air entry with coarse Velcro crackles right greater than left CVS: S1 and S2 normal with no audible murmur, regular rhythm. ABDOMEN: No hepatosplenomegaly, normal bowel sounds, no guarding or rigidity. SPINE: No scoliosis or deformity SKIN: No rashes CENTRAL NERVOUS SYSTEM: No focal deficits, tone is normal in all 4 extremities. EXTREMITIES: There is 2-3 + peripheral edema. Open wounds, blisters. Positive clubbing, no cyanosis. Peripheral pulses are intact. - Labs CBC & Chem 7: 04/08/20 05:59 04/08/20 05:59 Labs: Abnormal Lab Results - Last 24 Hours (Table) 04/08/20 04/08/20 Range/Units 05:59 05:59 Hct 46.9 H (34.0-46.0) % MCV 101.3 H (80.0-100.0) fL RDW 15.9 H (11.5-15.5) % Neutrophils # 8.5 H (1.3-7.7) k/uL Lymphocytes # 0.7 L (1.0-4.8) k/uL BUN 81 H (7-17) mg/dL Creatinine 1.72 H (0.52-1.04) mg/dL Microbiology - Last 24 Hours (Table) 04/06/20 16:01 Urine Culture - Preliminary Urine,Voided Gram Neg Bacilli 04/06/20 18:21 Blood Culture - Preliminary Blood No Growth after 24 hours 04/06/20 18:07 Gram Stain - Preliminary Leg - Left Wound Culture - Preliminary Gram Neg Bacilli Assessment and Plan Assessment: 1 Acute on chronic hypoxemic respiratory failure secondary to idiopathic pulmonary fibrosis, acute exacerbation of diastolic congestive heart failure, possible right lower lobe pneumonia 2 Urinary tract infection with possible sepsis and hypotension, gram-negative bacilli 3 Acute renal failure secondary to above 4 Edema and ulceration of the bilateral lower extremities, gram-negative bacilli 5 Idiopathic pulmonary fibrosis, trialed on Esbriet at two different doses in the out patient setting, discontinued due to right-sided flank pain and GI symptoms 6 Chronic hypoxemic respiratory failure secondary to above. On 2 L/m per nasal cannula in the outpatient setting 7 History of hypertension 8 Hyperlipidemia 9 Gastroesophageal reflux disease Plan The patient was seen and evaluated by Dr. Shaw Continue bronchodilators and prednisone Continue antibiotics Continue IV diuretics Titrate down the FiO2 as tolerated We will continue to follow and make further recommendations based on her clinical status I, the cosigning physician, performed a history & physical examination of the patient. Lungs sounds with coarse Velcro crackles right greater than left. Maintaining good O2 saturations in the 90s on 3 L/m per nasal cannula. I discussed the assessment and plan of care with my nurse practitioner, Zuleika argueta. I attest to the above note as dictated by her.
--- NOTE | 2020-04-08 14:50 | P.PN ---
Subjective Progress Note Date: 04/08/20 The patient is a 69-year-old female with a history significant for pulmonary fibrosis, hypertension, and CKD who presented with complaints of abdominal pain, who is a patient of Dr. Myles. She presented to the hospital with worsening lower extremity edema and shortness of breath The patient is currently resting comfortably, up in the chair with her at her side. She states her shortness of breath is back to her baseline. She denies any chest pain or chest pressure. She also denies any palpitations, dizziness, or lightheadedness. According to the patient she feels as though her lower extremity edema is improving Echocardiogram reveals LV function of 55% with severely dilated RV, moderate LVH, and severe pulmonary hypertension GENERAL: This is a 69-year-old male in no apparent distress at the time of my examination. HEENT: Head is atraumatic, normocephalic. Pupils are equal, round. Sclerae anicteric. Conjunctivae are clear. Mucous membranes of the mouth are moist. Neck is supple. There is no jugular venous distention. No carotid bruit is heard. LUNGS: Coarse lung sounds bilaterally. Positive for rhonchi. No chest wall tenderness is noted on palpation or with deep breathing. HEART: Irregular rate and rhythm without murmurs, rubs or gallops. S1 and S2 heard. ABDOMEN: Soft, nontender. Bowel sounds are heard. No organomegaly noted. EXTREMITIES: +2 lower extremity pitting edema. No calf tenderness noted. VASCULAR: Radial and dorsalis pedis pulses palpated, no evidence of clubbing. NEUROLOGIC: Patient is awake, alert and oriented x3. VITALS: Blood pressure 88/54, pulse 99, respiratory rate 22, afebrile, 93% on 3 L nasal cannula TELEMETRY: Sinus rhythm with frequent PVCs. Occasional bigeminy and trigeminy. Heart rates up to 120. LABS: WBC 10.0, hemoglobin 14.6, hematocrit 46.9, platelet 191, sodium 139, potassium 4.1, BUN 81, creatinine 1.72 IMPRESSION / ASSESSMENT: #1 symptoms of shortness of breath likely multifactorial, combination of fluid overload and pulmonary fibrosis #2 acute kidney injury #3 history of hypertension, currently hypotensive #4 history of pulmonary fibrosis #5 lower extremity wounds #6 urinary tract infection #7 abnormal troponin in the setting of acute kidney injury and hypotension #8 frequent PVCs #9 pulmonary hypertension, severe PLAN: Consider treatment with low dose beta-blockers for RV enlargement and frequent ectopy, however patients blood pressure will not tolerate at this time. Continue diuresis for lower extremity edema. Encourage pulmonary hygiene, as well as compression pumps when lying in bed to encourage fluid movement. The patient has been seen and evaulated. Plan of care has been reviewed and agreed upon by Dr Edward. Objective - Vital Signs Vital signs: Vital Signs Temp 98.1 F 04/08/20 08:00 Pulse 82 04/08/20 11:53 Resp 18 04/08/20 08:00 BP 88/54 04/08/20 08:00 Pulse Ox 93 L 04/08/20 08:00 Intake & Output 04/07/20 04/08/20 04/08/20 18:59 06:59 18:59 Intake Total 476 Output Total 750 475 Balance -274 -475 Weight 68 kg 68.7 kg Intake: Oral 476 Output: Urine 650 475 Post Void Residual 100 Other: Voiding Method Bedside Commode Bedside Commode # Voids 2 0 # Bowel Movements 1 - Labs CBC & Chem 7: 04/08/20 05:59 04/08/20 05:59 Labs: Abnormal Lab Results - Last 24 Hours (Table) 04/08/20 04/08/20 Range/Units 05:59 05:59 Hct 46.9 H (34.0-46.0) % MCV 101.3 H (80.0-100.0) fL RDW 15.9 H (11.5-15.5) % Neutrophils # 8.5 H (1.3-7.7) k/uL Lymphocytes # 0.7 L (1.0-4.8) k/uL BUN 81 H (7-17) mg/dL Creatinine 1.72 H (0.52-1.04) mg/dL Microbiology - Last 24 Hours (Table) 04/06/20 16:01 Urine Culture - Preliminary Urine,Voided Gram Neg Bacilli 04/06/20 18:21 Blood Culture - Preliminary Blood No Growth after 24 hours 04/06/20 18:07 Gram Stain - Preliminary Leg - Left Wound Culture - Preliminary Gram Neg Bacilli
--- NOTE | 2020-04-08 17:23 | P.PN ---
Subjective Progress Note Date: 04/08/20 Principal diagnosis: Acute on chronic hypoxemic respiratory failure; multifactorial Idiopathic pulmonary fibrosis Bilateral pneumonia Septic shock/ UTI/pneumonia 69-year-old female with a history significant for pulmonary fibrosis, hypertension, and CKD who presented with complaints of abdominal pain with worsening lower extremity edema and shortness of breath Echocardiogram reveals LV function of 55% with severely dilated RV, moderate LVH, and severe pulmonary hypertension 04/08/2020 Patient is seen and evaluated in room with family members at bedside; vital signs remained stable with a temperature of 98.1, pulse 82, respiration 18 and blood pressure of 88/54 Lab review shows a white blood count of 10.0, chemical profile with BUN of 81 and creatinine of 1.72 patient remains on IV Rocephin and Zithromax for bilateral pneumonia and UTI; le ft leg wound culture and urine culture are both positive for gram negatives bacilli; final culture and sensitivity report is pending Objective - Vital Signs Vital signs: Vital Signs Temp 96.7 F L 04/08/20 12:00 Pulse 104 H 04/08/20 16:00 Resp 18 04/08/20 16:00 BP 85/54 04/08/20 16:00 Pulse Ox 100 04/08/20 16:00 Intake & Output 04/07/20 04/08/20 04/08/20 18:59 06:59 18:59 Intake Total 476 50 Output Total 750 475 250 Balance -274 -475 -200 Weight 68 kg 68.7 kg Intake: Intake, IV Titration 50 Amount cefTRIAXone 1 gm In 50 Sodium Chloride 0.9% 50 ml @ 100 mls/hr IVPB Q24HR [facility] Rx#:[id number] Oral 476 Output: Urine 650 475 250 Post Void Residual 100 Other: Voiding Method Bedside Commode Bedside Commode # Voids 2 0 # Bowel Movements 1 - Exam PHYSICAL EXAMINATION: GENERAL: The patient is alert and oriented x3, not in any acute distress. Well developed, well nourished. HEENT: Pupils are round and equally reacting to light. EOMI. No scleral icterus. No conjunctival pallor. Normocephalic, atraumatic. No pharyngeal erythema. No thyromegaly. CARDIOVASCULAR: S1 and S2 present. No murmurs, rubs, or gallops. PULMONARY: Chest is clear to auscultation, no wheezing or crackles. ABDOMEN: Soft, nontender, nondistended, normoactive bowel sounds. No palpable organomegaly. MUSCULOSKELETAL: No joint swelling or deformity. EXTREMITIES: No cyanosis, clubbing, or pedal edema. NEUROLOGICAL: Gross neurological examination did not reveal any focal deficits. SKIN: No rashes. - Labs CBC & Chem 7: 04/08/20 05:59 04/08/20 05:59 Labs: Abnormal Lab Results - Last 24 Hours (Table) 04/08/20 04/08/20 Range/Units 05:59 05:59 Hct 46.9 H (34.0-46.0) % MCV 101.3 H (80.0-100.0) fL RDW 15.9 H (11.5-15.5) % Neutrophils # 8.5 H (1.3-7.7) k/uL Lymphocytes # 0.7 L (1.0-4.8) k/uL BUN 81 H (7-17) mg/dL Creatinine 1.72 H (0.52-1.04) mg/dL Microbiology - Last 24 Hours (Table) 04/06/20 16:01 Urine Culture - Preliminary Urine,Voided Gram Neg Bacilli 04/06/20 18:21 Blood Culture - Preliminary Blood No Growth after 24 hours 04/06/20 18:07 Gram Stain - Preliminary Leg - Left Wound Culture - Preliminary Gram Neg Bacilli Assessment and Plan Assessment: 1. Acute on chronic hypoxemic respiratory failure secondary to idiopathic pulmonary fibrosis, acute exacerbation of diastolic congestive heart failure, possible right lower lobe pneumonia 2. Urinary tract infection with possible sepsis and hypotension, gram-negative bacilli 3. Acute renal failure secondary to above; slowly improving 4. Edema and ulceration of the bilateral lower extremities, gram-negative bacilli ; patient remains on IV diuretic therapy; continue to monitor strict NAFISA's and daily weights 5. Idiopathic pulmonary fibrosis, trialed on Esbriet at two different doses in the out patient setting, discontinued due to right-sided flank pain and GI symptoms 6. Chronic hypoxemic respiratory failure secondary to above. On 2 L/m per nasal cannula in the outpatient setting 7. Hypertension; currently hypotensive and remains on midodrine 8. Hyperlipidemia; Lipitor 10 mg by mouth daily at bedtime DVT prophylaxis; subcu heparin CODE STATUS; full code Time with Patient: Greater than 30
[2020-04-08] MEDS: ASPIRIN 81 MG PO SCH (20:55)
[2020-04-08] MEDS: ATORVASTATIN 10 MG TAB PO SCH (20:55)
--- NOTE | 2020-04-08 22:15 | PN ---
PROGRESS NOTE DATE OF SERVICE: 04/08/2020 REASON FOR FOLLOWUP: Left lower extremity wound and cellulitis, UTI and pneumonia. INTERVAL HISTORY: Patient is currently afebrile. Patient is breathing more comfortably. The patient did have a cough and is bringing up some sputum. No chest pain. No abdominal pain. No diarrhea. Urinary symptom has improved as well as pain to the left leg. PHYSICAL EXAMINATION: Blood pressure is 95/56, pulse of 86. Temperature 96.7. She is 95% on 2 L nasal cannula. General description is an elderly female up in the chair in no distress. Respiratory system: Unlabored breathing, decreased breath sounds in the base, with no wheeze. Heart S1, S2. Regular rate and rhythm. Abdomen soft, no tenderness. Legs are currently wrapped up. No obvious drainage on the dressing. LABS: Hemoglobin is 14.8, white count 10, BUN of 81, creatinine is 1.72. Urine is E coli sensitive pathogen. Leg wound also showing an E coli. Blood culture negative. Sputum not collected. DIAGNOSTIC IMPRESSION AND PLAN: Patient admitted to the hospital with generalized weakness which is multifactorial in this patient who did have a possible component of pneumonia with E coli UTI as well as left leg wound cellulitis. The patient is covered with Rocephin and Zithromax to continue local wound care. Left heel wound with Medihoney followed by moist dressing and Gee wrap and monitor her clinical course closely. MMODL / IJN: [id number] /
[2020-04-09] MEDS: SODIUM CHLORIDE 0.9% 1,000 ML IV SCH (02:53)
[2020-04-09] MEDS: MIDODRINE 5 MG TAB PO SCH ×3 (06:16→17:06)
[2020-04-09] MEDS: PANTOPRAZOLE 40 MG TABLET PO SCH (06:16)
[2020-04-09] MEDS: IPRATROPIUM-ALBUTEROL 3 ML NEB INHALATION SCH ×4 (07:45→21:09)
[2020-04-09 07:50] LABS: Potassium 4.6 mmol/L (3.5-5.1)
--- NOTE | 2020-04-09 08:02 | XR ---
EXAMINATION TYPE: XR chest 1V portable DATE OF EXAM: 04/09/2020 COMPARISON: 04/07/2020 HISTORY: Shortness of breath TECHNIQUE: Single frontal view of the chest is obtained. FINDINGS: Bilateral consolidation greater on the right with small right pleural effusion noted. Coar sened interstitium stable. No pneumothorax. Heart size stable. Hypertrophic and degenerative change o f the spine. Arthropathy of the shoulders. IMPRESSION: 1. Correlate for bilateral infiltrate with underlying chronic interstitial pulmonary fibrosis. Superi mposed interstitial pneumonitis or venous congestion not excluded.
[2020-04-09 08:10] LABS: Basophils % (A) 0 %; Eosinophils # (A) 0.1 k/uL (0-0.7); Eosinophils % (A) 1 %; HGB 14.7 gm/dL (11.4-16.0); Hypochromasia Moderate; Lymphocytes # (A) 0.6 k/uL (1.0-4.8); Lymphocytes % (A) 6 %; MCH 32.7 pg (25.0-35.0); MCHC 31.9 g/dL (31.0-37.0); MCV 102.4 fL (80.0-100.0); Macrocytosis Slight; Mean Platelet Volume 9.1; Monocytes # (A) 0.6 k/uL (0-1.0); Monocytes % (A) 6 %; Neutrophils # (A) 8.6 k/uL (1.3-7.7); Neutrophils % (A) 85 %; Platelet Count 201 k/uL (150-450); RBC 4.49 m/uL (3.80-5.40); RDW 15.9 % (11.5-15.5); WBC 10.1 k/uL (3.8-10.6)
[2020-04-09] MEDS: predniSONE 10 MG TAB PO SCH (09:38)
[2020-04-09] MEDS: MONTELUKAST 10 MG TAB PO SCH (09:38)
[2020-04-09] MEDS: FUROSEMIDE 10 MG/ML 4 ML VIAL IV SCH ×2 (09:38→20:29)
[2020-04-09] MEDS: AZITHROMYCIN 500 MG TAB PO SCH (09:38)
[2020-04-09] MEDS: CHOLECALCIFEROL 1,000 UNIT TAB PO SCH (09:38)
[2020-04-09] MEDS: HEPARIN SODIUM,PORCINE 5,000 UNIT/ML 1 ML VIAL SQ SCH ×2 (09:39→20:29)
--- NOTE | 2020-04-09 11:21 | P.PN ---
Subjective Patient is seen in follow-up for acute kidney injury and chronic kidney disease. Patient has chronic kidney disease stage III with baseline creatinine in the range of 1.2-1.4. Renal function improving with diuresis. Creatinine 1.59 today. Nonoliguric. No vomiting or diarrhea. Still quite edematous. Vital signs are stable. General: The patient appeared well nourished and normally developed. HEENT: Head exam is unremarkable. Neck is without jugular venous distension. LUNGS: Breath sounds decreased. HEART: Rate and Rhythm are regular. ABDOMEN: Soft, nontender. EXTREMITITES: 2+ edema. Objective - Vital Signs Vital signs: Vital Signs Temp 97.4 F L 04/08/20 20:00 Pulse 82 04/09/20 07:56 Resp 18 04/09/20 04:00 BP 120/64 04/09/20 04:00 Pulse Ox 96 04/09/20 04:00 Intake & Output 04/08/20 04/09/20 04/09/20 18:59 06:59 18:59 Intake Total 526 240 240 Output Total 450 1250 650 Balance 76 -1010 -410 Weight 68 kg Intake: Intake, IV Titration 50 Amount cefTRIAXone 1 gm In 50 Sodium Chloride 0.9% 50 ml @ 100 mls/hr IVPB Q24HR [facility] Rx#:[id number] Oral 476 240 240 Output: Urine 450 1250 650 Other: Voiding Method Bedside Commode Bedside Commode # Voids 2 2 # Bowel Movements 1 - Labs CBC & Chem 7: 04/09/20 06:52 04/09/20 06:52 Labs: Abnormal Lab Results - Last 24 Hours (Table) 04/09/20 04/09/20 Range/Units 06:52 06:52 MCV 102.4 H (80.0-100.0) fL RDW 15.9 H (11.5-15.5) % Neutrophils # 8.6 H (1.3-7.7) k/uL Lymphocytes # 0.6 L (1.0-4.8) k/uL Chloride 109 H (98-107) mmol/L Carbon Dioxide 18 L (22-30) mmol/L BUN 74 H (7-17) mg/dL Creatinine 1.59 H (0.52-1.04) mg/dL Microbiology - Last 24 Hours (Table) 04/06/20 18:21 Blood Culture - Preliminary Blood No Growth after 48 hours 04/06/20 16:01 Urine Culture - Final Urine,Voided Escherichia coli 04/06/20 18:07 Gram Stain - Final Leg - Left Wound Culture - Final Escherichia coli Assessment and Plan Plan: Assessment: 1. Acute kidney injury mostly prerenal secondary to cardiorenal syndrome. Creatinine 1.59 today. 2. Chronic kidney disease stage III with baseline creatinine in the range of 1.2-1.4 secondary to nephrosclerosis. 3. Acute on chronic diastolic CHF with moderate to severe tricuspid regurgitation and severe pulmonary hypertension. 4. Volume overload. 5. Chronic hypotension maintained on midodrine. Plan: Maintain Lasix 40 mg IV twice daily. At metolazone 5 mg once daily. Low-salt diet and 1500 mL fluid restriction. Continue to monitor renal function and urine output.
[2020-04-09] MEDS: metOLazone 5 MG TAB PO SCH (12:48)
--- NOTE | 2020-04-09 14:38 | P.CONS ---
History of Present Illness - Reason for Consult Consult date: 04/09/20 Wound care - History of Present Illness This is a 69-year-old pleasant female being seen by the wound care center for nonhealing ulceration to right lower extremity and coccyx. Patient states that the ulceration started about 4 weeks ago. She noticed that her legs were swelling and she crossed her left leg over her right when she moved her left leg off her right she noticed some of the skin had pulled away. Patient had complaints of discomfort to the buttocks. Patient spends the majority of time sitting in her chair with her legs dependent. Patient's past medical history significant for GERD, hyperlipidemia, hypertension, pneumonia, bilateral lower venous insufficiency Review of Systems Review Of Systems: Constitutional: No fever, no chills, no night sweats. No weight change. No weakness, fatigue or lethargy. No daytime sleepiness. Integumentary:reports wounds, no lesions. No rash or pruritus. No unusual bruising. No change in hair or nails. Past Medical History Past Medical History: GERD/Reflux, Hyperlipidemia, Hypertension, Pneumonia Additional Past Medical History / Comment(s): Pulm fibrosis History of Any Multi-Drug Resistant Organisms: None Reported Past Surgical History: Appendectomy, Orthopedic Surgery, Tonsillectomy Additional Past Surgical History / Comment(s): shoulder Past Psychological History: No Psychological Hx Reported Smoking Status: Former smoker Past Alcohol Use History: None Reported Past Drug Use History: None Reported Medications and Allergies Home Medications Medication Instructions Recorded Confirmed Type Cholecalciferol [Vitamin D3] 5,000 unit PO DAILY 09/18/16 04/06/20 History Lansoprazole [Prevacid] 30 mg PO BID 09/18/16 04/06/20 History Losartan Potassium [Cozaar] 100 mg PO DAILY 09/18/16 04/06/20 History Nitroglycerin Sl Tabs [Nitrostat] 0.4 mg SUBLINGUAL Q5M PRN #100 tab 09/18/16 04/06/20 Rx Simvastatin [Zocor] 20 mg PO HS 09/18/16 04/06/20 History hydroCHLOROthiazide [Hydrodiuril] 25 mg PO DAILY 09/18/16 04/06/20 History Aspirin EC [Ecotrin Low Dose] 81 mg PO HS 04/06/20 04/06/20 History Ipratropium-Albuterol Nebulize 3 ml INHALATION RT-QID PRN 04/06/20 04/06/20 History [Duoneb 0.5 mg-3 mg/3 ml Soln] Montelukast Sodium [Singulair] 10 mg PO DAILY 04/06/20 04/06/20 History Allergies Allergy/AdvReac Type Severity Reaction Status Date / Time hydrocodone Allergy Rash/Hives Verified 04/06/20 14:57 latex Allergy Rash/Hives Verified 04/07/20 00:44 meperidine [From Demerol] Allergy Unknown Verified 04/06/20 14:57 oxycodone Allergy Unknown Verified 04/06/20 14:57 tramadol Allergy Unknown Verified 04/06/20 14:57 pirfenidone AdvReac Kidney Verified 04/06/20 15:04 Pain (brand Esbriet) Physical Exam Vitals: Vital Signs Temp Pulse Pulse Resp BP Pulse Ox 04/09/20 11:28 84 04/09/20 11:18 80 04/09/20 08:00 97.9 F 78 16 90/51 100 04/09/20 07:56 82 04/09/20 07:46 88 04/09/20 04:00 93 18 120/64 96 04/09/20 00:00 94 04/08/20 20:00 97.4 F L 65 19 96/49 93 L 04/08/20 19:43 85 04/08/20 19:33 82 04/08/20 16:00 104 H 18 85/54 100 04/08/20 15:50 83 04/08/20 15:37 82 Intake and Output 04/08/20 04/09/20 04/09/20 22:59 06:59 14:59 Intake Total 240 240 Output Total 850 600 900 Balance -610 -600 -343 Intake: Oral 240 240 Output: Urine 850 600 900 Other: Voiding Method Bedside Commode Bedside Commode Bedside Commode # Voids 2 1 # Bowel Movements 1 Weight 68 kg Physical exam: General Appearance: Alert, cooperative, no distress, appears stated age. Skin: Coccyx ulceration is Limited to skin breakdown measuring approximately 4 x 3 x 0.1 cm, granulation seen throughout. Right anterior lower leg ulcerations a cluster of 6 measuring approximately 8 x 4 x 0.1 cm minimal granulation seen throughout wound beds. Large amount of slough noted. Serous drainage noted. 2+ pitting edema to bilateral lower extremities. all other Skin color, texture, tugor normal, no rashes or lesions. Neurologic: Alert oriented x3 Results CBC & Chem 7: 04/09/20 06:52 04/09/20 06:52 Labs: Abnormal Lab Results - Last 24 Hours (Table) 04/09/20 04/09/20 Range/Units 06:52 06:52 MCV 102.4 H (80.0-100.0) fL RDW 15.9 H (11.5-15.5) % Neutrophils # 8.6 H (1.3-7.7) k/uL Lymphocytes # 0.6 L (1.0-4.8) k/uL Chloride 109 H (98-107) mmol/L Carbon Dioxide 18 L (22-30) mmol/L BUN 74 H (7-17) mg/dL Creatinine 1.59 H (0.52-1.04) mg/dL Microbiology - Last 24 Hours (Table) 04/06/20 18:21 Blood Culture - Preliminary Blood No Growth after 48 hours 04/06/20 16:01 Urine Culture - Final Urine,Voided Escherichia coli 04/06/20 18:07 Gram Stain - Final Leg - Left Wound Culture - Final Escherichia coli Assessment and Plan (1) Nonhealing ulcer of right lower extremity with fat layer exposed Current Visit: Yes Status: Acute Code(s): L97.912 - NON-PRS CHR ULC UNSP PRT OF R LOW LEG W FAT LAYER EXPOSED SNOMED Code(s): 55928360 (2) Chronic venous hypertension (idiopathic) with ulcer and inflammation of right lower extremity Current Visit: Yes Status: Acute Code(s): I87.331 - CHRONIC VENOUS HTN W ULCER AND INFLAMMATION OF R LOW EXTREM; L97.919 - NON-PRS CHRONIC ULC UNSP PRT OF R LOW LEG W UNSP SEVERITY SNOMED Code(s): 427515471060768 (3) Pressure ulcer of coccygeal region, stage 2 Current Visit: Yes Status: Acute Code(s): L89.152 - PRESSURE ULCER OF SACRAL REGION, STAGE 2 SNOMED Code(s): 511638247 Plan: Apply honey gel, saline moistened gauze, dry gauze, rolled gauze and secure with paper tape. Apply bilateral Gee wraps to lower extremities to help with edema. Keep legs elevated. Discussed with patient the need for outpatient wound care which she declined. Prescription given for honey alginate, saline was gauze, dry gauze, rolled gauze and Gee wrap for continued wound care. Continue to apply zinc barrier cream to the coccyx. Discussed with patient importance of keeping legs elevated especially when standing and chair. Discussed with patient to utilize a waffle cushion and/or Roho cushion when sitting. Patient verbalized understanding. Thank you kindly for the consultation any questions with contact the wound care center DNP note has been reviewed and discussed with Dr. Russ and the impression and plan of care has been directed as dictated.
--- NOTE | 2020-04-09 16:04 | PN ---
PROGRESS NOTE Sharon is a 69-year-old lady who is admitted to hospital with shortness of breath due to a combination of problems including fluid overload, pulmonary fibrosis and has had hypotension. On exam, heart rate is 80 beats per minute, blood pressure is 120/64, O2 saturation is 96% on 3 L. Chest exam reveals diminished air entry at the bases without any crackles or rhonchi. Heart exam reveals first and second heart sounds, systolic murmur at the left lower sternal border. Abdomen is soft. Exam of extremities reveals bilateral pitting edema. LABS: Show a hemoglobin of 14.7, potassium is 4.6, creatinine is 1.5, coronavirus was not detected. ASSESSMENT: Fluid overload, chronic renal insufficiency and COPD. PLAN: Continue the IV Lasix. GRACIE / FREDON: [id number] /
--- NOTE | 2020-04-09 16:10 | PN ---
PROGRESS NOTE PULMONARY/CRITICAL CARE PROGRESS NOTE: DATE OF SERVICE: 04/09/2020 This is a 69-year-old female with a well-established history of interstitial pulmonary fibrosis. She was admitted with a diagnosis of acute on chronic hypoxemic respiratory failure on April 06. She seems to be improved. She also has a history of acute exacerbation of diastolic CHF. In addition, she had a urinary tract infection with sepsis and hypotension secondary to Gram-negative bacilli. The patient was trialed on as Esbriet on 2 different occasions but could not tolerate it because of GI symptoms. In addition, she has a history of hypertension, hyperlipidemia and GERD. Currently she is resting comfortably. She is on a couple of liters of oxygen. She feels like she is improving. PHYSICAL EXAMINATION: VITAL SIGNS: Her temperature is 97.9 heart rate 80, respiratory rate 16, blood pressure 90/51, mean 64, and 2-liter saturation is 100%. GENERAL APPEARANCE: Appears in no acute distress. HEENT EXAMINATION: Grossly unremarkable. Mucous membranes are moist. No oral lesions. NECK: Supple. Full range of motion. No adenopathy. Neck veins are flat. CARDIOVASCULAR: Examination reveals regular rhythm and rate. Heart rate 80 beats per minute. S1, S2 normal. RESPIRATORY: Lungs reveal some bibasilar crackles. She is mildly restricted in her breathing. No rhonchi or wheezes. ABDOMEN: Soft. Bowel sounds are heard. EXTREMITIES: Extremities reveal significant edema. She has 1 to 2+ pitting. SKIN: Without rash. NEUROLOGIC: Neurologic examination is nonfocal. LABS: Reviewed. White count 10.1, hemoglobin 14.7, hematocrit 46, platelet count 201,000. Sodium and potassium normal. Chloride is 109. CO2 18. Anion gap is 12. BUN and creatinine were 74 and 1.59. Microbiology is showing evidence of E coli in her left leg wound and in her urine. Her most recent chest x-ray shows a pattern of initial fibrosis. Medications are reviewed. ASSESSMENT: 1. Acute on chronic hypoxemic respiratory failure secondary to idiopathic pulmonary fibrosis as well as acute exacerbation of diastolic congestive heart failure. In addition, there may be a component of pneumonia. 2. Escherichia coli urinary tract infection with sepsis. 3. Acute renal failure secondary secondary to number 2. 4. Edema and ulceration of bilateral lower extremities, infected with Escherichia coli. 5. Idiopathic pulmonary fibrosis, failed Esbriet x2 because of gastrointestinal complaints. 6. Chronic hypoxemic respiratory failure secondary to pulmonary fibrosis, currently on home oxygen at 2 L, . 7. History of hypertension. 8. Hyperlipidemia. 9. Gastroesophageal reflux disease. PLAN: The patient is doing well. Will continue to follow. No additional recommendations are made. Overall prognosis is very guarded, though. Be careful with diuretics, as she may become too prerenal. Continue antibiotics. Will continue to follow. Prognosis again is guarded. MMODL / IJN: [id number] /
--- NOTE | 2020-04-09 16:40 | P.PN ---
Subjective Progress Note Date: 04/09/20 Principal diagnosis: Acute on chronic hypoxemic respiratory failure; multifactorial Idiopathic pulmonary fibrosis Bilateral pneumonia Septic shock/ UTI/pneumonia 69-year-old female with a history significant for pulmonary fibrosis, hypertension, and CKD who presented with complaints of abdominal pain with worsening lower extremity edema and shortness of breath Echocardiogram reveals LV function of 55% with severely dilated RV, moderate LVH, and severe pulmonary hypertension 04/08/2020 Patient is seen and evaluated in room with family members at bedside; vital signs remained stable with a temperature of 98.1, pulse 82, respiration 18 and blood pressure of 88/54 Lab review shows a white blood count of 10.0, chemical profile with BUN of 81 and creatinine of 1.72 patient remains on IV Rocephin and Zithromax for bilateral pneumonia and UTI; le ft leg wound culture and urine culture are both positive for gram negatives bacilli; final culture and sensitivity report is pending 04/09/2020 Patient is seen and evaluated sitting up In bedside chair; 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 Vital signs remained stable with a temperature of 97.4, pulse 84, respiration 18 and blood pressure 120/64 Lab review shows a white blood count of 10.1 with hemoglobin of 14.7, chemical profile shows BUN of 74 and creatinine of 1.59 which is improved from yesterday Patient remains on IV antibiotics in form of Rocephin and Zithromax for bilateral pneumonia/UTI and infected leg wound; wound care consult in place; nephrology is following for acute on chronic renal failure and recommending to continue with IV Lasix 40 mg twice a day with addition of Zaroxolyn 5 mg by mouth daily Objective - Vital Signs Vital signs: Vital Signs Temp 97.4 F L 04/08/20 20:00 Pulse 84 04/09/20 11:28 Resp 18 04/09/20 04:00 BP 120/64 04/09/20 04:00 Pulse Ox 96 04/09/20 04:00 Intake & Output 04/08/20 04/09/20 04/09/20 18:59 06:59 18:59 Intake Total 526 240 240 Output Total 450 6940 650 Balance 76 1010 -410 Weight 68 kg Intake: Intake, IV Titration 50 Amount cefTRIAXone 1 gm In 50 Sodium Chloride 0.9% 50 ml @ 100 mls/hr IVPB Q24HR [facility] Rx#:[id number] Oral 476 240 240 Output: Urine 450 1250 650 Other: Voiding Method Bedside Commode Bedside Commode # Voids 2 2 # Bowel Movements 1 - Exam PHYSICAL EXAMINATION: GENERAL: The patient is alert and oriented x3, not in any acute distress. Well developed, well nourished. HEENT: Pupils are round and equally reacting to light. EOMI. No scleral icterus. No conjunctival pallor. Normocephalic, atraumatic. No pharyngeal erythema. No thyromegaly. CARDIOVASCULAR: S1 and S2 present. No murmurs, rubs, or gallops. PULMONARY: Chest is clear to auscultation, no wheezing or crackles. ABDOMEN: Soft, nontender, nondistended, normoactive bowel sounds. No palpable organomegaly. MUSCULOSKELETAL: No joint swelling or deformity. EXTREMITIES: No cyanosis, clubbing, or pedal edema. NEUROLOGICAL: Gross neurological examination did not reveal any focal deficits. SKIN: No rashes. - Labs CBC & Chem 7: 04/09/20 06:52 04/09/20 06:52 Labs: Abnormal Lab Results - Last 24 Hours (Table) 04/09/20 04/09/20 Range/Units 06:52 06:52 MCV 102.4 H (80.0-100.0) fL RDW 15.9 H (11.5-15.5) % Neutrophils # 8.6 H (1.3-7.7) k/uL Lymphocytes # 0.6 L (1.0-4.8) k/uL Chloride 109 H (98-107) mmol/L Carbon Dioxide 18 L (22-30) mmol/L BUN 74 H (7-17) mg/dL Creatinine 1.59 H (0.52-1.04) mg/dL Microbiology - Last 24 Hours (Table) 04/06/20 18:21 Blood Culture - Preliminary Blood No Growth after 48 hours 04/06/20 16:01 Urine Culture - Final Urine,Voided Escherichia coli 04/06/20 18:07 Gram Stain - Final Leg - Left Wound Culture - Final Escherichia coli Assessment and Plan Assessment: 1. Acute on chronic hypoxemic respiratory failure secondary to idiopathic pulmonary fibrosis, acute exacerbation of diastolic congestive heart failure, possible right lower lobe pneumonia 2. Urinary tract infection with possible sepsis and hypotension, gram-negative bacilli 3. Acute renal failure secondary to above; slowly improving 4. Edema and ulceration of the bilateral lower extremities, gram-negative bacilli ; patient remains on IV diuretic therapy; continue to monitor strict NAFISA's and daily weights 5. Idiopathic pulmonary fibrosis, trialed on Esbriet at two different doses in the out patient setting, discontinued due to right-sided flank pain and GI symptoms 6. Chronic hypoxemic respiratory failure secondary to above. On 2 L/m per nasal cannula in the outpatient setting 7. Hypertension; currently hypotensive and remains on midodrine 8. Hyperlipidemia; Lipitor 10 mg by mouth daily at bedtime DVT prophylaxis; subcu heparin CODE STATUS; full code
--- NOTE | 2020-04-09 19:46 | PN ---
PROGRESS NOTE DATE OF SERVICE: 04/09/2020 REASON FOR FOLLOWUP: UTI and left lower extremity wound and cellulitis. INTERVAL HISTORY: The patient is currently afebrile. The patient is breathing more comfortably. The patient did have occasional cough and bringing up some sputum. No chest pain. No abdominal pain or any worsening pain to the left leg. PHYSICAL EXAMINATION: Blood pressure 107/56, pulse of 87, temperature 98.7. She is 93% on 3 L nasal cannula. General description is an elderly female up in the chair in no distress. RESPIRATORY SYSTEM: Unlabored breathing with decreased breath sounds at the base. No wheeze. HEART: S1, S2. Regular rate and rhythm. ABDOMEN: Soft. No tenderness. Bilateral lower extremities: 3+ edema of feet. Left leg wound is currently dressed. No drainage on the dressing. LABS: Hemoglobin is 14.7, white count 10.1, BUN of 74, creatinine 1.59. DIAGNOSTIC IMPRESSION AND PLAN: 1. Patient with Escherichia coli urinary tract infection, covered with Rocephin. 2. Patient with left leg wound and cellulitis, local culture with Escherichia coli. Covered with Rocephin. 3. Patient with shortness of breath and cough with concern for possible pneumonia. Will obtain a sputum sample and continue Rocephin and Zithromax. Monitor clinical course closely. MMODL / IJN: [id number] /
[2020-04-09] MEDS: ATORVASTATIN 10 MG TAB PO SCH (20:29)
[2020-04-09] MEDS: ASPIRIN 81 MG PO SCH (20:29)
[2020-04-10] MEDS: MIDODRINE 5 MG TAB PO SCH ×3 (06:53→18:38)
[2020-04-10] MEDS: PANTOPRAZOLE 40 MG TABLET PO SCH (06:53)
[2020-04-10] MEDS: IPRATROPIUM-ALBUTEROL 3 ML NEB INHALATION SCH ×4 (07:11→21:41)
[2020-04-10 07:57] LABS: Calcium 9.2 mg/dL (8.4-10.2)
[2020-04-10 08:02] LABS: Magnesium 1.3 mg/dL (1.6-2.3); Potassium 4.6 mmol/L (3.5-5.1)
[2020-04-10] MEDS: SODIUM CHLORIDE 0.9% 1,000 ML IV SCH (08:38)
[2020-04-10] MEDS: CHOLECALCIFEROL 1,000 UNIT TAB PO SCH (08:52)
[2020-04-10] MEDS: metOLazone 5 MG TAB PO SCH (08:52)
[2020-04-10] MEDS: AZITHROMYCIN 500 MG TAB PO SCH (08:52)
[2020-04-10] MEDS: predniSONE 10 MG TAB PO SCH (08:52)
[2020-04-10] MEDS: MONTELUKAST 10 MG TAB PO SCH (08:52)
[2020-04-10] MEDS: HEPARIN SODIUM,PORCINE 5,000 UNIT/ML 1 ML VIAL SQ SCH ×2 (08:53→20:14)
[2020-04-10] MEDS: FUROSEMIDE 10 MG/ML 4 ML VIAL IV SCH ×2 (09:00→20:15)
[2020-04-10] MEDS ORDERED: Magnesium Replacement Protocol 1 EACH MISC MISCELLANE PRN (10:34)
--- NOTE | 2020-04-10 11:08 | P.PN ---
Subjective Progress Note Date: 04/10/20 Principal diagnosis: Acute on chronic hypoxic respiratory failure second to etiopathic pulmonary fibrosis, fluid volume overload and right lower lobe consolidation This is a very pleasant 69-year-old female patient follows with Dr. Melo as her primary care provider. She has a history of hypertension, hyperlipidemia, gastroesophageal reflux disease. She is a lifelong nonsmoker. She does follow with Dr. Camara in our office for chronic hypoxemic respiratory failure with class IV dyspnea secondary to idiopathic pulmonary fibrosis. Her FVC is 61%. She had been initiated on pirfenidone/Esbriet at 267 mg that was to be titrated to 3 tablets 3 times a day. The patient started having GI symptoms and recovered. He trialed her again at a lower dose but she developed right-sided flank pain that she related to her kidneys and she stopped the medication again. She is maintained on oxygen at 2 L/m in the outpatient setting. She presented to the emergency room yesterday with ongoing right lower abdominal discomfort and right flank pain. She also had noticed increased swelling of the lower extremities. No worsening shortness of breath or cough. Computed tomography scan of the abdomen and pelvis revealed no acute abnormalities. There is noted extensive bilateral pulmonary infiltrates with large right pleural effusion. Today's chest x-ray reveals mild pulmonary edema. Right basilar airspace disease representing confluent edema versus pneumonia. Underlying fibrosis. She is seen today in consultation on the selective care unit. She is currently sitting up in a chair at the bedside. States her breathing is at her baseline while at rest. She is maintaining O2 saturations in the high 90s on 5 L/m per nasal cannula. She's been afebrile. She does have significant lower extremity edema with open wounds. Cultures pending. Urine culture pending as well. ProBNP 34,300. Troponin 0.069. Albumin 3.3. White count 8.7. Hemoglobin 14.5. Sodium 141. Potassium 4.3. Bicarb 23. Creatinine 1.90. She's been initiated on ceftriaxone and azithromycin. Bronchodilators. Oral prednisone. Echocardiogram pending. The patient is seen today 04/08/2020 in follow-up on the selective care unit. She is currently sitting up in a chair at the bedside. Awake and alert in no acute distress. Breathing a bit easier today compared to yesterday. No w orsening shortness of breath, cough or congestion. She's been maintained on prednisone, diuretics, antibiotics. Left leg wound culture is positive for gram-negative bacilli. Urine culture positive for gram-negative bacilli. White count 10.0. Hemoglobin 14.6. Sodium 139. Potassium 4.1. Creatinine 1.72. Echocardiogram revealed preserved left ventricular systolic function with ejection fraction 66 5%. Moderate concentric LVH. Severely enlarged right ventricle. Severe pulmonary hypertension. RVSP of 78 mmHg. On 04/10/2020 patient seen in follow-up on selective care unit, she states she is breathing easier, feeling better, she is on 2 L of oxygen with a pulse ox of 96%, hemodynamically stable, she is afebrile, breathing seems to be comfortable, does have some exertional dyspnea, however she feels like she is close to her baseline in terms of her breathing. She is alert and oriented 3, she feels stronger, she would like to go home today. No acute events overnight, his labs have been reviewed, renal profile slightly improved, electrolytes are within normal limits, magnesium is down to 1.3, and this was replaced per protocol, she is on IV diuretics 40 mg every 12 hours in addition to metolazone, nephrology is dosing the diuretics. She has produced 3.4 L in urine output, and she is in - 2.7 net fluid Balance over the last 24 hours. Remains on azithromycin and Rocephin, her left leg wound showed E. coli with carreno susceptibility, and a urine culture showed E. coli. Objective - Vital Signs Vital signs: Vital Signs Temp 98.3 F 04/10/20 08:35 Pulse 96 04/10/20 08:35 Resp 18 04/10/20 08:35 BP 103/61 04/10/20 08:35 Pulse Ox 96 04/10/20 08:35 Intake & Output 04/09/20 04/10/20 04/10/20 18:59 06:59 18:59 Intake Total 716 Output Total 2049 1399 Balance -1333 -1400 Weight 60.9 kg Intake: Oral 716 Output: Urine 2049 1399 Other: Voiding Method Bedside Commode Bedside Commode Bedside Commode # Voids 3 # Bowel Movements 1 - Exam GENERAL EXAM: Alert, very pleasant, thin 6-year-old white female, on 3 L of oxygen with pulse ox of 96%, comfortable in no apparent distress. HEAD: Normocephalic/atraumatic. EYES: Normal reaction of pupils, equal size. Conjunctiva pink, sclera white. NOSE: Clear with pink turbinates. THROAT: No erythema or exudates. NECK: No masses, no JVD, no thyroid enlargement, no adenopathy. CHEST: No chest wall deformity. Symmetrical expansion. LUNGS: Equal air entry with some limited crackles at the bases CVS: Regular rate and rhythm, normal S1 and S2, no gallops, no murmurs, no rubs ABDOMEN: Soft, nontender. No hepatosplenomegaly, normal bowel sounds, no guarding or rigidity. EXTREMITIES: No clubbing, no edema, no cyanosis, 2+ pulses and upper and lower extremities. MUSCULOSKELETAL: Muscle strength and tone normal. SPINE: No scoliosis or deformity SKIN: No rashes CENTRAL NERVOUS SYSTEM: Alert and oriented -3. No focal deficits, tone is normal in all 4 extremities. PSYCHIATRIC: Alert and oriented -3. Appropriate affect. Intact judgment and insight. - Labs CBC & Chem 7: 04/09/20 06:52 04/10/20 06:49 Labs: Abnormal Lab Results - Last 24 Hours (Table) 04/10/20 Range/Units 06:49 BUN 80 H (7-17) mg/dL Creatinine 1.41 H (0.52-1.04) mg/dL Magnesium 1.3 L (1.6-2.3) mg/dL Microbiology - Last 24 Hours (Table) 04/06/20 18:21 Blood Culture - Preliminary Blood No Growth after 72 hours Assessment and Plan Plan: Assessment: 1 Acute on chronic hypoxemic respiratory failure secondary to idiopathic pulmonary fibrosis, acute exacerbation of diastolic congestive heart failure, possible right lower lobe pneumonia 2 Urinary tract infection with possible sepsis and hypotension, secondary to E. coli 3 Acute renal failure secondary to above 4 Edema and ulceration of the bilateral lower extremities, secondary to E. coli infection 5 Idiopathic pulmonary fibrosis, trialed on Esbriet at two different doses in the out patient setting, discontinued due to right-sided flank pain and GI symptoms 6 Chronic hypoxemic respiratory failure secondary to above. On 2 L/m per nasal cannula in the outpatient setting 7 History of hypertension 8 Hyperlipidemia 9 Gastroesophageal reflux disease Plan: Continue current medical treatment, diuretics per nephrology, overall patient is feeling better, breathing easier, she states she is close to her baseline in terms of breathing. She is on 2 L of oxygen this is her home dose oxygen. No acute events overnight, no fever or chills, he is on azithromycin and Rocephin for E. coli found in her left leg wound infection and urinary tract infection. Hemodynamically she stable, no worsening dyspnea, from pulmonary perspective she can consider for discharge home today with outpatient follow-up with Dr. Camara in the office in 7-10 days I performed a history & physical examination of the patient and discussed their management with my nurse practitioner, Angelia Najera. I reviewed the nurse practitioner's note and agree with the documented findings and plan of care. Lung sounds are positive for bibasilar crackles. The findings and the impression was discussed with the patient. I attest to the documentation by the nurse practitioner. Time with Patient: Less than 30
--- NOTE | 2020-04-10 12:09 | P.PN ---
Subjective Patient is seen in follow-up for acute kidney injury and chronic kidney disease. Patient has chronic kidney disease stage III with baseline creatinine in the range of 1.2-1.4. Renal function improving with diuresis. Creatinine 1.41 today. Nonoliguric. No vomiting or diarrhea. Still quite edematous. Weight is trending down. Vital signs are stable. General: The patient appeared well nourished and normally developed. HEENT: Head exam is unremarkable. Neck is without jugular venous distension. LUNGS: Breath sounds decreased. HEART: Rate and Rhythm are regular. ABDOMEN: Soft, nontender. EXTREMITITES: 2+ edema. Objective - Vital Signs Vital signs: Vital Signs Temp 98.3 F 04/10/20 08:35 Pulse 76 04/10/20 11:19 Resp 18 04/10/20 08:35 BP 103/61 04/10/20 08:35 Pulse Ox 96 04/10/20 08:35 Intake & Output 04/09/20 04/10/20 04/10/20 18:59 06:59 18:59 Intake Total 716 120 Output Total 2049 1400 600 Balance -5954 -1400 -480 Weight 60.9 kg Intake: Oral 716 120 Output: Urine 2049 1400 600 Other: Voiding Method Bedside Commode Bedside Commode Bedside Commode # Voids 3 # Bowel Movements 1 1 - Labs CBC & Chem 7: 04/09/20 06:52 04/10/20 06:49 Labs: Abnormal Lab Results - Last 24 Hours (Table) 04/10/20 Range/Units 06:49 BUN 80 H (7-17) mg/dL Creatinine 1.41 H (0.52-1.04) mg/dL Magnesium 1.3 L (1.6-2.3) mg/dL Microbiology - Last 24 Hours (Table) 04/06/20 18:21 Blood Culture - Preliminary Blood No Growth after 72 hours Assessment and Plan Plan: Assessment: 1. Acute kidney injury mostly prerenal secondary to cardiorenal syndrome. Creatinine 1.41 today. 2. Chronic kidney disease stage III with baseline creatinine in the range of 1.2-1.4 secondary to nephrosclerosis. 3. Acute on chronic diastolic CHF with moderate to severe tricuspid regurgitation and severe pulmonary hypertension. 4. Volume overload. Improving with diuresis. 5. Chronic hypotension maintained on midodrine. 6. Hypomagnesemia secondary to diuresis. Plan: Maintain Lasix 40 mg IV twice daily. Maintain metolazone. Low-salt diet and 1500 mL fluid restriction. Continue to monitor renal function and urine output. Replace magnesium. 3 g IV today.
--- NOTE | 2020-04-10 15:31 | PN ---
PROGRESS NOTE DATE OF SERVICE: 04/10/2020 REASON FOR FOLLOWUP: UTI, lower extremity wound cellulitis and possible pneumonia. INTERVAL HISTORY: Patient is currently afebrile. The patient is feeling better. Breathing comfortably. The patient mentioned swelling of the leg has decreased. No chest pain. Occasional cough. No abdominal pain, no diarrhea. PHYSICAL EXAMINATION: Blood pressure 98/58 with a pulse of 102, temperature is 97.6, she is 100% on 3 L nasal cannula. General description is an elderly female, up in the chair in no distress. RESPIRATORY SYSTEM: Unlabored breathing, decreased breath sounds in the base, with no wheeze. HEART: S1, S2. Regular rate and rhythm. ABDOMEN: Soft, no tenderness. Legs are currently wrapped. No obvious drainage on the dressing. LABS: BUN of 80, creatinine 1.41. Blood culture has been negative. DIAGNOSTIC IMPRESSION/PLAN: 1. Patient with an E coli urinary tract infection covered with Rocephin. 2. Patient with left leg wound with cellulitis, culture with E coli and patient is covered with Rocephin. 3. Patient with shortness of breath, multifactorial with possible component of pneumonia. Patient will be covered with Rocephin and Zithromax and monitor clinical course closely. MMODL / IJN: [id number] /
--- NOTE | 2020-04-10 15:49 | PN ---
PROGRESS NOTE Sharon is a 69-year-old lady who is admitted to hospital with shortness of breath due to a combination of fluid overload, pulmonary fibrosis and COPD. She is feeling better, shortness of breath has improved as did the leg edema. On exam, heart rate is 96 beats per minute. Blood pressure is 102/60, respiratory rate is 18, O2 saturation is 96%. Chest exam reveals bilateral coarse crackles. Heart exam reveals first and second heart sounds. No gallop. Exam of extremities reveals bilateral 2+ pitting edema. LABS: Show a hemoglobin of 14.7, platelet count is 201, potassium is 4.6, BUN is 80, creatinine is 1.4. ASSESSMENT: Shortness of breath due to a combination of problems including fluid overload and underlying pulmonary fibrosis. Continue current medications. MMODL / IJN: [id number] /
[2020-04-10] MEDS: MAGNESIUM SULFATE-D5W PMX 1 GM in DEXTROSE/WATER 1 100ML.BAG IVPB SCH ×3 (16:20→20:17)
[2020-04-10] MEDS: ASPIRIN 81 MG PO SCH (20:14)
[2020-04-10] MEDS: ATORVASTATIN 10 MG TAB PO SCH (20:14)
[2020-04-11] MEDS: SODIUM CHLORIDE 0.9% 1,000 ML IV SCH (06:31)
[2020-04-11 06:33] LABS: Calcium 9.5 mg/dL (8.4-10.2); Magnesium 2.2 mg/dL (1.6-2.3)
[2020-04-11 06:39] LABS: Potassium 5.3 mmol/L (3.5-5.1)
[2020-04-11] MEDS: MIDODRINE 5 MG TAB PO SCH ×3 (06:40→18:13)
[2020-04-11] MEDS: PANTOPRAZOLE 40 MG TABLET PO SCH (06:41)
[2020-04-11] MEDS: IPRATROPIUM-ALBUTEROL 3 ML NEB INHALATION SCH ×4 (07:03→20:13)
--- NOTE | 2020-04-11 09:29 | P.PN ---
Subjective Patient is seen in follow-up for acute kidney injury and chronic kidney disease. Patient has chronic kidney disease stage III with baseline creatinine in the range of 1.2-1.4. Renal function improving with diuresis. Creatinine 1.24 today. Nonoliguric. No vomiting or diarrhea. Still quite edematous but improving. Vital signs are stable. General: The patient appeared well nourished and normally developed. HEENT: Head exam is unremarkable. Neck is without jugular venous distension. LUNGS: Breath sounds decreased. HEART: Rate and Rhythm are regular. ABDOMEN: Soft, nontender. EXTREMITITES: 2+ edema. Objective - Vital Signs Vital signs: Vital Signs Temp 98.0 F 04/10/20 20:00 Pulse 80 04/11/20 07:15 Resp 18 04/11/20 04:00 BP 102/62 04/11/20 04:00 Pulse Ox 95 04/11/20 04:00 Intake & Output 04/10/20 04/11/20 04/11/20 18:59 06:59 18:59 Intake Total 120 Output Total 600 2550 Balance -480 -2550 Weight 65.5 kg Intake: Oral 120 Output: Urine 600 2550 Other: Voiding Method Bedside Commode Bedside Commode # Voids 0 # Bowel Movements 1 - Labs CBC & Chem 7: 04/09/20 06:52 04/11/20 05:44 Labs: Abnormal Lab Results - Last 24 Hours (Table) 04/11/20 Range/Units 05:44 Sodium 135 L (137-145) mmol/L Potassium 5.3 H (3.5-5.1) mmol/L Chloride 93 L (98-107) mmol/L BUN 75 H (7-17) mg/dL Creatinine 1.24 H (0.52-1.04) mg/dL Microbiology - Last 24 Hours (Table) 04/10/20 21:00 Gram Stain - Preliminary Sputum Sputum Culture - Preliminary 04/06/20 18:21 Blood Culture - Preliminary Blood No Growth after 96 hours Assessment and Plan Plan: Assessment: 1. Acute kidney injury mostly prerenal secondary to cardiorenal syndrome. Creatinine 1.24 today. 2. Chronic kidney disease stage III with baseline creatinine in the range of 1.2-1.4 secondary to nephrosclerosis. 3. Acute on chronic diastolic CHF with moderate to severe tricuspid regurgitation and severe pulmonary hypertension. 4. Volume overload. Improving with diuresis. 5. Chronic hypotension maintained on midodrine. 6. Hypomagnesemia secondary to diuresis. Better post replacement. Plan: Maintain Lasix 40 mg IV twice daily. Maintain metolazone. Low-salt diet and 1500 mL fluid restriction. Continue to monitor renal function and urine output.
[2020-04-11] MEDS: MONTELUKAST 10 MG TAB PO SCH (09:50)
[2020-04-11] MEDS: FUROSEMIDE 10 MG/ML 4 ML VIAL IV SCH (09:50)
[2020-04-11] MEDS: metOLazone 5 MG TAB PO SCH (09:50)
[2020-04-11] MEDS: HEPARIN SODIUM,PORCINE 5,000 UNIT/ML 1 ML VIAL SQ SCH ×2 (09:50→20:01)
[2020-04-11] MEDS: CHOLECALCIFEROL 1,000 UNIT TAB PO SCH (09:50)
[2020-04-11] MEDS: AZITHROMYCIN 500 MG TAB PO SCH (09:51)
[2020-04-11] MEDS: predniSONE 10 MG TAB PO SCH (09:51)
--- NOTE | 2020-04-11 14:42 | P.PN ---
Subjective Progress Note Date: 04/11/20 Principal diagnosis: Acute on chronic hypoxic respiratory failure second to etiopathic pulmonary fibrosis, fluid volume overload and right lower lobe consolidation This is a very pleasant 69-year-old female patient follows with Dr. Melo as her primary care provider. She has a history of hypertension, hyperlipidemia, gastroesophageal reflux disease. She is a lifelong nonsmoker. She does follow with Dr. Camara in our office for chronic hypoxemic respiratory failure with class IV dyspnea secondary to idiopathic pulmonary fibrosis. Her FVC is 61%. She had been initiated on pirfenidone/Esbriet at 267 mg that was to be titrated to 3 tablets 3 times a day. The patient started having GI symptoms and recovered. He trialed her again at a lower dose but she developed right-sided flank pain that she related to her kidneys and she stopped the medication again. She is maintained on oxygen at 2 L/m in the outpatient setting. She presented to the emergency room yesterday with ongoing right lower abdominal discomfort and right flank pain. She also had noticed increased swelling of the lower extremities. No worsening shortness of breath or cough. Computed tomography scan of the abdomen and pelvis revealed no acute abnormalities. There is noted extensive bilateral pulmonary infiltrates with large right pleural effusion. Today's chest x-ray reveals mild pulmonary edema. Right basilar airspace disease representing confluent edema versus pneumonia. Underlying fibrosis. She is seen today in consultation on the selective care unit. She is currently sitting up in a chair at the bedside. States her breathing is at her baseline while at rest. She is maintaining O2 saturations in the high 90s on 5 L/m per nasal cannula. She's been afebrile. She does have significant lower extremity edema with open wounds. Cultures pending. Urine culture pending as well. ProBNP 34,300. Troponin 0.069. Albumin 3.3. White count 8.7. Hemoglobin 14.5. Sodium 141. Potassium 4.3. Bicarb 23. Creatinine 1.90. She's been initiated on ceftriaxone and azithromycin. Bronchodilators. Oral prednisone. Echocardiogram pending. The patient is seen today 04/08/2020 in follow-up on the selective care unit. She is currently sitting up in a chair at the bedside. Awake and alert in no acute distress. Breathing a bit easier today compared to yesterday. No w orsening shortness of breath, cough or congestion. She's been maintained on prednisone, diuretics, antibiotics. Left leg wound culture is positive for gram-negative bacilli. Urine culture positive for gram-negative bacilli. White count 10.0. Hemoglobin 14.6. Sodium 139. Potassium 4.1. Creatinine 1.72. Echocardiogram revealed preserved left ventricular systolic function with ejection fraction 66 5%. Moderate concentric LVH. Severely enlarged right ventricle. Severe pulmonary hypertension. RVSP of 78 mmHg. On 04/10/2020 patient seen in follow-up on selective care unit, she states she is breathing easier, feeling better, she is on 2 L of oxygen with a pulse ox of 96%, hemodynamically stable, she is afebrile, breathing seems to be comfortable, does have some exertional dyspnea, however she feels like she is close to her baseline in terms of her breathing. She is alert and oriented 3, she feels stronger, she would like to go home today. No acute events overnight, his labs have been reviewed, renal profile slightly improved, electrolytes are within normal limits, magnesium is down to 1.3, and this was replaced per protocol, she is on IV diuretics 40 mg every 12 hours in addition to metolazone, nephrology is dosing the diuretics. She has produced 3.4 L in urine output, and she is in - 2.7 net fluid Balance over the last 24 hours. Remains on azithromycin and Rocephin, her left leg wound showed E. coli with carreno susceptibility, and a urine culture showed E. coli. On 04/11/2001 patient seen in follow-up on selective care unit. She is awake and alert, in no acute distress, she is on 2 L of oxygen with a pulse ox of 94%, hemodynamically stable, afebrile, hemodynamically stable. She feels that her breathing is close to her baseline, no worsening, no cough or congestion, lung sounds reveal scattered crackles in bilateral bases, consistent with her history of IPF. She felt a bit nauseous today and dry heaving, but no vomiting. Her kidney function is improving. She remains on oral Lasix to 40 mg twice daily, and Zaroxolyn, still has some lower extremity edema, both legs are a strapped, but she states overall her swelling has improved. Objective - Vital Signs Vital signs: Vital Signs Temp 97.4 F L 04/11/20 11:15 Pulse 89 04/11/20 11:15 Resp 18 04/11/20 11:15 BP 113/72 04/11/20 11:15 Pulse Ox 94 L 04/11/20 11:15 Intake & Output 04/10/20 04/11/20 04/11/20 18:59 06:59 18:59 Intake Total 120 120 Output Total 600 2550 600 Balance -480 -2550 -480 Weight 65.5 kg Intake: Oral 120 120 Output: Urine 600 2550 600 Other: Voiding Method Bedside Commode Bedside Commode Bedside Commode # Voids 0 # Bowel Movements 1 0 - Exam GENERAL EXAM: Alert, very pleasant, thin 6-year-old white female, on 3 L of oxygen with pulse ox of 96%, comfortable in no apparent distress. HEAD: Normocephalic/atraumatic. EYES: Normal reaction of pupils, equal size. Conjunctiva pink, sclera white. NOSE: Clear with pink turbinates. THROAT: No erythema or exudates. NECK: No masses, no JVD, no thyroid enlargement, no adenopathy. CHEST: No chest wall deformity. Symmetrical expansion. LUNGS: Equal air entry with some limited crackles at the bases CVS: Regular rate and rhythm, normal S1 and S2, no gallops, no murmurs, no rubs ABDOMEN: Soft, nontender. No hepatosplenomegaly, normal bowel sounds, no guarding or rigidity. EXTREMITIES: No clubbing, 1+ lower extremity edema, lower legs are both reji wrapped no cyanosis, 2+ pulses and upper and lower extremities. MUSCULOSKELETAL: Muscle strength and tone normal. SPINE: No scoliosis or deformity SKIN: No rashes CENTRAL NERVOUS SYSTEM: Alert and oriented -3. No focal deficits, tone is normal in all 4 extremities. PSYCHIATRIC: Alert and oriented -3. Appropriate affect. Intact judgment and insight. - Labs CBC & Chem 7: 04/09/20 06:52 04/11/20 05:44 Labs: Abnormal Lab Results - Last 24 Hours (Table) 04/11/20 Range/Units 05:44 Sodium 135 L (137-145) mmol/L Potassium 5.3 H (3.5-5.1) mmol/L Chloride 93 L (98-107) mmol/L BUN 75 H (7-17) mg/dL Creatinine 1.24 H (0.52-1.04) mg/dL Microbiology - Last 24 Hours (Table) 04/10/20 21:00 Gram Stain - Preliminary Sputum Sputum Culture - Preliminary 04/06/20 18:21 Blood Culture - Preliminary Blood No Growth after 96 hours Assessment and Plan Plan: Assessment: 1 Acute on chronic hypoxemic respiratory failure secondary to idiopathic pulmonary fibrosis, acute exacerbation of diastolic congestive heart failure, possible right lower lobe pneumonia 2 Urinary tract infection with possible sepsis and hypotension, secondary to E. coli 3 Acute renal failure secondary to above 4 Edema and ulceration of the bilateral lower extremities, secondary to E. coli infection 5 Idiopathic pulmonary fibrosis, trialed on Esbriet at two different doses in the out patient setting, discontinued due to right-sided flank pain and GI symptoms 6 Chronic hypoxemic respiratory failure secondary to above. On 2 L/m per nasal cannula in the outpatient setting 7 History of hypertension 8 Hyperlipidemia 9 Gastroesophageal reflux disease Plan: Patient remains stable in the last 24 hours, vital signs are stable, patient states that her breathing is close to her baseline, no worsening dyspnea, she is on her maintenance dose of oral prednisone, antibiotics, and bronchodilators. No acute events overnight, she had some mild nausea, but no vomiting, she is tolerating oral intake, no abdominal pain, no diarrhea. Renal profile is improving, from pulmonary perspective patient is stable for discharge home today. She can follow-up with Dr. Camara in the office in 7-10 days. I performed a history & physical examination of the patient and discussed their management with my nurse practitioner, Angelia Najera. I reviewed the nurse practitioner's note and agree with the documented findings and plan of care. L rahul sounds are positive for bibasilar crackles. The findings and the impression was discussed with the patient. I attest to the documentation by the nurse practitioner. Time with Patient: Less than 30
--- NOTE | 2020-04-11 15:34 | PN ---
PROGRESS NOTE DATE OF SERVICE: 04/10/2020 This is a 69-year-old lady with history of pulmonary fibrosis and acute exacerbation of chronic diastolic heart failure, who was admitted to hospital with respiratory insufficiency. She had an echocardiogram on this admission that revealed an ejection fraction of 60% with severe pulmonary hypertension. She is currently on IV Lasix and has renal insufficiency. PHYSICAL EXAM: Patient was afebrile. Heart rate was 70 beats per minute. Blood pressure is 120/60, respiratory rate is 18. Chest exam reveals bilateral coarse crackles. Heart exam reveals first and second heart sounds. No gallop. Exam of extremities reveal bilateral pitting edema. ASSESSMENT: 1. Acute exacerbation of chronic diastolic heart failure. 2. Pulmonary fibrosis with respiratory failure. PLAN: Patient will continue with the Lasix and rest of her medications. Prognosis is guarded. MMODL / IJN: [id number] /
[2020-04-11] MEDS: FUROSEMIDE 40 MG TAB PO SCH (15:48)
--- NOTE | 2020-04-11 15:58 | PN ---
PROGRESS NOTE FOLLOW-UP NOTE: Sharon is a 69-year-old lady who has a combination of COPD and CHF. Her overall situation has remained unchanged. She has severe pulmonary fibrosis. Leg edema has improved. On exam, heart rate is 80 beats per minute. Blood pressure is 106/56, respiratory rate 18. Chest exam reveals coarse crackles. Heart exam reveals first and second heart sounds. No gallop. Examination of extremities reveals bilateral pitting edema. Labs show a hemoglobin of 14.7. Platelet count is 201. Potassium is 4.6. BUN is 80, creatinine is 1.4. ASSESSMENT: 1. Acute exacerbation of chronic diastolic heart failure. 2. Respiratory failure secondary to idiopathic pulmonary fibrosis. 3. Renal failure. PLAN: Will continue the patient on current medications, including Lasix, aspirin, Lipitor, Zaroxolyn, nebulizers. I am going to switch the Lasix to p.o. MMJESSICAL / FREDON: [id number] /
[2020-04-11] MEDS: ASPIRIN 81 MG PO SCH (20:01)
[2020-04-11] MEDS: ATORVASTATIN 10 MG TAB PO SCH (20:01)
[2020-04-11 20:04] VITALS: BMI 24.7
--- NOTE | 2020-04-11 22:41 | PN ---
PROGRESS NOTE DATE OF SERVICE: 04/11/2020 REASON FOR FOLLOWUP: E coli urinary tract infection, lower extremity wound and cellulitis. INTERVAL HISTORY: The patient is currently afebrile. The patient is breathing comfortably. Patient denies having any chest pain. She did have some cough, not bringing up any sputum. No abdominal pain or diarrhea. PHYSICAL EXAMINATION: Her blood pressure is 120/68 with a pulse of 69, temperature 98.1. She is 90% on 2 L nasal cannula. General description is an elderly female up in the bed in no distress. RESPIRATORY SYSTEM: Unlabored breathing. Some coarse breath sounds at the base. No wheeze. HEART: S1, S2. Regular rate and rhythm. ABDOMEN: Soft. No tenderness. Leg still has some swelling. Wound is currently dressed up. No drainage on the dressing. DIAGNOSTIC IMPRESSION AND PLAN: Patient admitted to hospital with shortness of breath which is multifactorial with concern for Escherichia coli urinary tract infection, possible pneumonitis, and left leg wound and cellulitis. Patient to continue with Rocephin 1 gram daily. Local wound care with Medihoney and Gee wrap to keep the swelling down. Continue with supportive care. MMODL / IJN: [id number] /
[2020-04-12] MEDS: SODIUM CHLORIDE 0.9% 1,000 ML IV SCH (06:00)
[2020-04-12 06:24] LABS: Calcium 9.5 mg/dL (8.4-10.2); Magnesium 1.8 mg/dL (1.6-2.3); Potassium 3.7 mmol/L (3.5-5.1)
[2020-04-12] MEDS: MIDODRINE 5 MG TAB PO SCH ×2 (06:40→12:24)
[2020-04-12] MEDS: PANTOPRAZOLE 40 MG TABLET PO SCH (06:40)
[2020-04-12] MEDS: IPRATROPIUM-ALBUTEROL 3 ML NEB INHALATION SCH ×2 (09:06→12:10)
[2020-04-12] MEDS: predniSONE 10 MG TAB PO SCH (09:21)
[2020-04-12] MEDS: metOLazone 5 MG TAB PO SCH (09:21)
[2020-04-12] MEDS: HEPARIN SODIUM,PORCINE 5,000 UNIT/ML 1 ML VIAL SQ SCH (09:21)
[2020-04-12] MEDS: FUROSEMIDE 40 MG TAB PO SCH (09:21)
[2020-04-12] MEDS: MONTELUKAST 10 MG TAB PO SCH (09:21)
[2020-04-12] MEDS: CHOLECALCIFEROL 1,000 UNIT TAB PO SCH (09:21)
--- NOTE | 2020-04-12 09:25 | P.PN ---
Subjective Patient is seen in follow-up for acute kidney injury and chronic kidney disease. Patient has chronic kidney disease stage III with baseline creatinine in the range of 1.2-1.4. Renal function stable. Creatinine 1.27 today. Nonoliguric. No vomiting or diarrhea. Still quite edematous but improving. Vital signs are stable. General: The patient appeared well nourished and normally developed. HEENT: Head exam is unremarkable. Neck is without jugular venous distension. LUNGS: Breath sounds decreased. HEART: Rate and Rhythm are regular. ABDOMEN: Soft, nontender. EXTREMITITES: 2+ edema. Objective - Vital Signs Vital signs: Vital Signs Temp 97.3 F L 04/12/20 08:00 Pulse 88 04/12/20 09:20 Resp 18 04/12/20 08:00 BP 127/71 04/12/20 08:00 Pulse Ox 96 04/12/20 08:00 Intake & Output 04/11/20 04/12/20 04/12/20 18:59 06:59 18:59 Intake Total 340 230 240 Output Total 2400 300 400 Balance -2059 -70 -160 Weight 380 kg Intake: Oral 340 230 240 Output: Urine 2400 300 400 Other: Voiding Method Bedside Commode Bedside Commode # Voids 2 # Bowel Movements 0 - Labs CBC & Chem 7: 04/09/20 06:52 04/12/20 05:41 Labs: Abnormal Lab Results - Last 24 Hours (Table) 04/12/20 Range/Units 05:41 Sodium 135 L (137-145) mmol/L Chloride 89 L (98-107) mmol/L Carbon Dioxide 35 H (22-30) mmol/L BUN 77 H (7-17) mg/dL Creatinine 1.27 H (0.52-1.04) mg/dL Microbiology - Last 24 Hours (Table) 04/06/20 18:21 Blood Culture - Preliminary Blood No Growth after 120 hours 04/10/20 21:00 Gram Stain - Preliminary Sputum Sputum Culture - Preliminary Assessment and Plan Plan: Assessment: 1. Acute kidney injury mostly prerenal secondary to cardiorenal syndrome. Renal function stable. Creatinine 1.27 today. 2. Chronic kidney disease stage III with baseline creatinine in the range of 1.2-1.4 secondary to nephrosclerosis. 3. Acute on chronic diastolic CHF with moderate to severe tricuspid regurgitation and severe pulmonary hypertension. 4. Volume overload. Improving with diuresis. 5. Chronic hypotension maintained on midodrine. 6. Hypomagnesemia secondary to diuresis. Better post replacement. Plan: Maintain Lasix 40 mg orally twice daily. Stop metolazone. Low-salt diet and 1500 mL fluid restriction. Continue to monitor renal function and urine output. Repeat BMP and magnesium level 2-3 days postdischarge. Follow up outpatient in 1-2 weeks.
--- NOTE | 2020-04-12 12:03 | P.DS ---
Providers Date of admission: 04/06/20 17:52 Expected date of discharge: 04/12/20 Attending physician: Reji Aj Consults: 04/06/20 17:54 Consult Physician Urgent Consulting Provider: Magaly Shaw Consult Reason/Comments: pneumonia,p fibrosis, sepsis Do you want consulting provider notified?: Yes Consult Physician Urgent Consulting Provider: Booker Edward Consult Reason/Comments: chf Do you want consulting provider notified?: Yes Consult Physician Urgent Consulting Provider: Kathrin Lopez Consult Reason/Comments: renal failure Do you want consulting provider notified?: Yes 04/06/20 18:06 Consult Physician Routine Consulting Provider: Tristan Chambers Consult Reason/Comments: sepsis Do you want consulting provider notified?: Yes Primary care physician: Artemio Melo Hospital Course: Final diagnosis Acute on chronic hypoxemic respiratory failure secondary to idiopathic pulmonary fibrosis, acute exacerbation of diastolic congestive heart failure, possible rig ht lower lobe pneumonia, multifactorial Acute urinary tract infection with possible sepsis and hypotension, gram- negative bacilli, present on admission Edema and ulceration of bilateral lower extremities, cellulitis, ecoli Chronic hypoxemic respiratory failure secondary to above, O2 dependent Hypertension Hyperlipidemia Idiopathic pulmonary fibrosis Bilateral pneumonia Septic shock, urinary tract infection, pneumonia, present on admission Discharge disposition Patient is being transferred in a stable condition with guarded prognosis to home. Patient will continue with home care in the outpatient setting. Patient will follow-up with Dr. Melo upon discharge. Patient also instructed to follow up with nephrology in the outpatient setting along with the wound care center in [facility]. Patient will continue on oral Ceftin 500 mg twice daily for the next one week. She'll also continue on prednisone 10 mg daily. Total time taken is 35 minutes. History of present illness This is an 69-year-old female who was recently admitted with increasing shortness of breath, worsening bilateral lower extremity edema, and some abdominal discomfort and was being closely monitored. Patient was seen and evaluated by multiple medical consultations. She was maintained on IV Lasix for diuresis and underwent an echo showing overall left ventricular systolic function normal with an EF of 55% with severely dilated RV, moderate LVH, and severe pulmonary hypertension. Patient continued to be hypotensive and was initiated on midodrine and will continue at this time. Patient also was contin ued on IV antibiotics in the form of ceftriaxone along with Zithromax for bilateral pneumonia and urinary tract infection. Urine and left leg wound cultures showing E. coli and infectious disease was following. Patient completed her course of Zithromax and will continue on oral Ceftin 500 mg twice daily for the next one week. Patient will be following up with repeat labs to monitor kidney functions along with nephrology, the wound care center, pulmonary, and her primary care provider in the outpatient setting. Patient continues to have some lower extremity edema and is to continue with Lasix 40 mg twice daily along with local wound care and Gee wraps to the lower extremities. Patient also instructed to elevate bilateral lower extremities while at rest. Patient will continue with home care in the outpatient setting. Patient is O2 dependent in the outpatient setting and will continue. Patient states she is feeling better and would really like to go home today. Currently no reports of chest pain, worsening shortness of breath, or palpitations. Patient is afebrile. No reports of nausea or vomiting and patient is tolerating diet. Guarded prognosis. On exam vital signs are stable. Temp is 97.3F, pulse is 94, respirations are 18, blood pressure is 127/71, oxygen saturation is 96% on 2 L via nasal cannula. Cardio S1, S2 are muffled. Respiratory shows diminished breath sounds at the bases with some scattered wheezing and rhonchi noted. Abdomen is soft and nontender. Nervous system shows no focal deficits. Please refer to medication reconciliation sheet for a list of medications. Patient Condition at Discharge: Stable Plan - Discharge Summary Discharge Rx Participant: Yes New Discharge Prescriptions: New Cefuroxime Axetil [Ceftin] 500 mg PO BID #14 tab Furosemide [Lasix] 40 mg PO BID@0900,1600 30 Days #60 tab predniSONE 10 mg PO DAILY 30 Days #30 tab Midodrine [ProAmatine] 10 mg PO AC-TID 30 Days #180 tab Pantoprazole [Protonix] 40 mg PO AC-BRKFST 30 Days #30 tablet.dr Continue Cholecalciferol [Vitamin D3 (25 Mcg = 1000 Iu)] 5,000 unit PO DAILY Simvastatin [Zocor] 20 mg PO HS Lansoprazole [Prevacid] 30 mg PO BID Nitroglycerin Sl Tabs [Nitrostat] 0.4 mg SUBLINGUAL Q5M PRN #100 tab PRN Reason: Chest Pain Aspirin EC [Ecotrin Low Dose] 81 mg PO HS Ipratropium-Albuterol Nebulize [Duoneb 0.5 mg-3 mg/3 ml Soln] 3 ml INHALATION RT-QID PRN PRN Reason: Shortness Of Breath Montelukast Sodium [Singulair] 10 mg PO DAILY Discontinued hydroCHLOROthiazide [Hydrodiuril] 25 mg PO DAILY Losartan Potassium [Cozaar] 100 mg PO DAILY Discharge Medication List Cholecalciferol [Vitamin D3 (25 Mcg = 1000 Iu)] 5,000 unit PO DAILY 09/18/16 [History] Lansoprazole [Prevacid] 30 mg PO BID 09/18/16 [History] Nitroglycerin Sl Tabs [Nitrostat] 0.4 mg SUBLINGUAL Q5M PRN #100 tab 09/18/16 [Rx] Simvastatin [Zocor] 20 mg PO HS 09/18/16 [History] Aspirin EC [Ecotrin Low Dose] 81 mg PO HS 04/06/20 [History] Ipratropium-Albuterol Nebulize [Duoneb 0.5 mg-3 mg/3 ml Soln] 3 ml INHALATION RT-QID PRN 04/06/20 [History] Montelukast Sodium [Singulair] 10 mg PO DAILY 04/06/20 [History] Cefuroxime Axetil [Ceftin] 500 mg PO BID #14 tab 04/12/20 [Rx] Furosemide [Lasix] 40 mg PO BID@0900,1600 30 Days #60 tab 04/12/20 [Rx] Midodrine [ProAmatine] 10 mg PO AC-TID 30 Days #180 tab 04/12/20 [Rx] Pantoprazole [Protonix] 40 mg PO AC-BRKFST 30 Days #30 tablet. 04/12/20 [Rx] predniSONE 10 mg PO DAILY 30 Days #30 tab 04/12/20 [Rx] Follow up Appointment(s)/Referral(s): [facility], [NON-STAFF] - Artemio Melo DO [Primary Care Provider] - 1-2 days Tristan Chambers MD [STAFF PHYSICIAN] - 1 Week Presley Camara MD [STAFF PHYSICIAN] - 1 Week Wilbert Larose DO [STAFF PHYSICIAN] - 1 Week Ambulatory/Diagnostic Orders: Basic Metabolic Panel [LAB.AMB] Time Frame: 2 Days, Location: None Selected Complete Blood Count w/diff [LAB.AMB] Time Frame: 2 Days, Location: None Selected Activity/Diet/Wound Care/Special Instructions: Medahoney to the left leg wound followed by moist dressing afterwards Gee wrap from just above the toe to below the knee to be changed daily Follow-up with Dr. Chambers in the wound care center 1 week, call [phone] to make an appointment Activity Limited until follow-up Continue with home care Follow-up with primary care provider upon discharge Continue with antibiotics until finished Follow-up with pulmonary in the outpatient setting Follow-up with nephrology in the outpatient setting Follow-up at the wound care center Continue with heart healthy diet and fluid restrictions of 1500 mL per 24 hours along with low-salt diet Repeat labs in 2-3 days Discharge Disposition: HOME WITH HOME HEALTH SERVICES
--- NOTE | 2020-04-12 12:10 | P.PN ---
Subjective Progress Note Date: 04/12/20 Principal diagnosis: Acute on chronic hypoxic respiratory failure second to etiopathic pulmonary fibrosis, fluid volume overload and right lower lobe consolidation This is a very pleasant 69-year-old female patient follows with Dr. Melo as her primary care provider. She has a history of hypertension, hyperlipidemia, gastroesophageal reflux disease. She is a lifelong nonsmoker. She does follow with Dr. Camara in our office for chronic hypoxemic respiratory failure with class IV dyspnea secondary to idiopathic pulmonary fibrosis. Her FVC is 61%. She had been initiated on pirfenidone/Esbriet at 267 mg that was to be titrated to 3 tablets 3 times a day. The patient started having GI symptoms and recovered. He trialed her again at a lower dose but she developed right-sided flank pain that she related to her kidneys and she stopped the medication again. She is maintained on oxygen at 2 L/m in the outpatient setting. She presented to the emergency room yesterday with ongoing right lower abdominal discomfort and right flank pain. She also had noticed increased swelling of the lower extremities. No worsening shortness of breath or cough. Computed tomography scan of the abdomen and pelvis revealed no acute abnormalities. There is noted extensive bilateral pulmonary infiltrates with large right pleural effusion. Today's chest x-ray reveals mild pulmonary edema. Right basilar airspace disease representing confluent edema versus pneumonia. Underlying fibrosis. She is seen today in consultation on the selective care unit. She is currently sitting up in a chair at the bedside. States her breathing is at her baseline while at rest. She is maintaining O2 saturations in the high 90s on 5 L/m per nasal cannula. She's been afebrile. She does have significant lower extremity edema with open wounds. Cultures pending. Urine culture pending as well. ProBNP 34,300. Troponin 0.069. Albumin 3.3. White count 8.7. Hemoglobin 14.5. Sodium 141. Potassium 4.3. Bicarb 23. Creatinine 1.90. She's been initiated on ceftriaxone and azithromycin. Bronchodilators. Oral prednisone. Echocardiogram pending. The patient is seen today 04/08/2020 in follow-up on the selective care unit. She is currently sitting up in a chair at the bedside. Awake and alert in no acute distress. Breathing a bit easier today compared to yesterday. No w orsening shortness of breath, cough or congestion. She's been maintained on prednisone, diuretics, antibiotics. Left leg wound culture is positive for gram-negative bacilli. Urine culture positive for gram-negative bacilli. White count 10.0. Hemoglobin 14.6. Sodium 139. Potassium 4.1. Creatinine 1.72. Echocardiogram revealed preserved left ventricular systolic function with ejection fraction 66 5%. Moderate concentric LVH. Severely enlarged right ventricle. Severe pulmonary hypertension. RVSP of 78 mmHg. On 04/10/2020 patient seen in follow-up on selective care unit, she states she is breathing easier, feeling better, she is on 2 L of oxygen with a pulse ox of 96%, hemodynamically stable, she is afebrile, breathing seems to be comfortable, does have some exertional dyspnea, however she feels like she is close to her baseline in terms of her breathing. She is alert and oriented 3, she feels stronger, she would like to go home today. No acute events overnight, his labs have been reviewed, renal profile slightly improved, electrolytes are within normal limits, magnesium is down to 1.3, and this was replaced per protocol, she is on IV diuretics 40 mg every 12 hours in addition to metolazone, nephrology is dosing the diuretics. She has produced 3.4 L in urine output, and she is in - 2.7 net fluid Balance over the last 24 hours. Remains on azithromycin and Rocephin, her left leg wound showed E. coli with carreno susceptibility, and a urine culture showed E. coli. On 04/11/2001 patient seen in follow-up on [facility]. She is awake and alert, in no acute distress, she is on 2 L of oxygen with a pulse ox of 94%, hemodynamically stable, afebrile, hemodynamically stable. She feels that her breathing is close to her baseline, no worsening, no cough or congestion, lung sounds reveal scattered crackles in bilateral bases, consistent with her history of IPF. She felt a bit nauseous today and dry heaving, but no vomiting. Her kidney function is improving. She remains on oral Lasix to 40 mg twice daily, and Zaroxolyn, still has some lower extremity edema, both legs are a strapped, but she states overall her swelling has improved. On 04/12/2020 patient seen in follow-up on selective care unit, she is awake and alert, in no acute distress, she's had no acute issues overnight, no further nausea or dry heaving, her breathing is at baseline, minimal crackles at bilateral bases, consistent with her history of underlying IPF, she is on home dose oxygen at 2 L, her pulse ox is 96%, she is afebrile, hemodynamically stable, no abdominal pain, no diarrhea. These labs have been reviewed, renal profile is relatively stable, sodium is 135, potassium is 3.7, chloride is 89, and CO2 is 35. She continues on oral Lasix at 40 mg twice daily, she is on m aintenance dose of oral prednisone, she is doing well, lower extremity edema is improving, still has some residual lower extremity edema. Objective - Vital Signs Vital signs: Vital Signs Temp 97.3 F L 04/12/20 08:00 Pulse 88 04/12/20 09:20 Resp 18 04/12/20 08:00 BP 127/71 04/12/20 08:00 Pulse Ox 96 04/12/20 08:00 Intake & Output 04/11/20 04/12/20 04/12/20 18:59 06:59 18:59 Intake Total 340 230 240 Output Total 2400 300 400 Balance -2060 -70 -160 Weight 380 kg Intake: Oral 340 230 240 Output: Urine 2400 300 400 Other: Voiding Method Bedside Commode Bedside Commode Toilet # Voids 2 # Bowel Movements 0 - Exam GENERAL EXAM: Alert, very pleasant, thin 6-year-old white female, on 3 L of oxygen with pulse ox of 96%, comfortable in no apparent distress. HEAD: Normocephalic/atraumatic. EYES: Normal reaction of pupils, equal size. Conjunctiva pink, sclera white. NOSE: Clear with pink turbinates. THROAT: No erythema or exudates. NECK: No masses, no JVD, no thyroid enlargement, no adenopathy. CHEST: No chest wall deformity. Symmetrical expansion. LUNGS: Equal air entry with some limited crackles at the bases CVS: Regular rate and rhythm, normal S1 and S2, no gallops, no murmurs, no rubs ABDOMEN: Soft, nontender. No hepatosplenomegaly, normal bowel sounds, no guarding or rigidity. EXTREMITIES: No clubbing, 1+ lower extremity edema, lower legs are both reji wrapped no cyanosis, 2+ pulses and upper and lower extremities. MUSCULOSKELETAL: Muscle strength and tone normal. SPINE: No scoliosis or deformity SKIN: No rashes CENTRAL NERVOUS SYSTEM: Alert and oriented -3. No focal deficits, tone is normal in all 4 extremities. PSYCHIATRIC: Alert and oriented -3. Appropriate affect. Intact judgment and i nsight. - Labs CBC & Chem 7: 04/09/20 06:52 04/12/20 05:41 Labs: Abnormal Lab Results - Last 24 Hours (Table) 04/12/20 Range/Units 05:41 Sodium 135 L (137-145) mmol/L Chloride 89 L (98-107) mmol/L Carbon Dioxide 35 H (22-30) mmol/L BUN 77 H (7-17) mg/dL Creatinine 1.27 H (0.52-1.04) mg/dL Microbiology - Last 24 Hours (Table) 04/06/20 18:21 Blood Culture - Preliminary Blood No Growth after 120 hours 04/10/20 21:00 Gram Stain - Preliminary Sputum Sputum Culture - Preliminary Assessment and Plan Plan: Assessment: 1 Acute on chronic hypoxemic respiratory failure secondary to idiopathic pulmonary fibrosis, acute exacerbation of diastolic congestive heart failure, possible right lower lobe pneumonia 2 Urinary tract infection with possible sepsis and hypotension, secondary to E. coli 3 Acute renal failure secondary to above 4 Edema and ulceration of the bilateral lower extremities, secondary to E. coli infection 5 Idiopathic pulmonary fibrosis, trialed on Esbriet at two different doses in the out patient setting, discontinued due to right-sided flank pain and GI symptoms 6 Chronic hypoxemic respiratory failure secondary to above. On 2 L/m per nasal cannula in the outpatient setting 7 History of hypertension 8 Hyperlipidemia 9 Gastroesophageal reflux disease Plan: Patient has remained stable overnight, she continues to diurese, lower extremity edema is improving, she has been transitioned to oral Lasix, renal profile is stable, improved from admission. From pulmonary perspective her breathing is at baseline, she is on her home dose O2, anticipated to be discharged home today and follow up with Dr. Camara in the office in one week I performed a history & physical examination of the patient and discussed their management with my nurse practitioner, Angelia Najera. I reviewed the nurse practitioner's note and agree with the documented findings and plan of care. Lung sounds are positive for bibasilar crackles. The findings and the impression was discussed with the patient. I attest to the documentation by the nurse practitioner. Time with Patient: Less than 30
[2020-04-12 12:23] VITALS: BP 114/72; RESP 16; TEMP 98.2
[2020-04-12 12:24] VITALS: PULSE 84
--- NOTE | 2020-04-12 15:23 | PN ---
PROGRESS NOTE DATE OF SERVICE: 04/12/2020. REASON FOR FOLLOWUP: 1. E. coli urinary tract infection. 2. Left leg wound with cellulitis. INTERVAL HISTORY: Patient is seen on rounds this morning. The patient has been afebrile, patient is breathing more comfortably. Patient denies having any chest pain. She did have a cough which is dry in nature. No nausea, no vomiting, no abdominal pain, or any worsening pain to the left leg. PHYSICAL EXAMINATION: Blood pressure 114/72 with a pulse of 85, temperature 98.2. She is 95% on 2 L nasal cannula. General description is an elderly female, up in the chair in no distress. RESPIRATORY SYSTEM: Some coarse breath sounds at bases, no wheeze. HEART: S1, S2. Regular rate and rhythm. ABDOMEN: Soft, no tenderness. Left leg wound with minimal slough tissue, surrounding redness has improved. LABS: BUN of 27, creatinine 0.27. DIAGNOSTIC IMPRESSION AND PLAN: Patient with E coli urinary tract infection, left leg wound with cellulitis, antibiotic switched over to Ceftin 500 mg twice a day for about a week. Prescription has been sent. Local care with [facility] followed by moist dressing and advised to follow up in the [facility] in 1 week. All their questions and concerns were answered. MMODL / IJN: [id number] /
--- NOTE | 2020-04-12 15:47 | PN ---
PROGRESS NOTE FOLLOW-UP NOTE: This patient is a 69-year-old lady who is admitted to hospital with CHF and COPD exacerbations. She has pneumonia. She is feeling much better and is to be discharged home today. She is on aspirin, Lipitor, Lasix 40 b.i.d. and Protonix. On exam, heart rate is 80 beats per minute. Blood pressure is 127/70, respiratory rate 18. Chest exam reveals coarse crackles. Heart exam reveals first and second heart sounds. No gallop. Examination of extremities reveals bilateral ankle edema, but that has improved significantly. Labs show that the potassium is 3.7, creatinine is 1.2. ASSESSMENT: 1. Idiopathic pulmonary fibrosis. 2. Congestive heart failure. PLAN: The patient will continue current medications, including the Lasix. She is stable for discharge. MMODL / IJN: [id number] /
--- NOTE | 2020-04-13 12:30 | CDI ---
Documentation Clarification Form Date: 04/13/2020 12:14:51 PM From: Chayito Young Phone: If you have a question about this query, please contact Sophie Day Certified Coding Specialist at [phone] between 8am and 5pm. Admit Date: 04/06/2020 05:52:00 PM Patient Name: Sharon Tripp Visit Number: [id number] Discharge Date: 04/12/2020 02:49:00 PM ATTENTION: The Clinical Documentation Specialists (CDI) and [facility] Coding Staff appreciate your assistance in clarifying documentation. Please respond to the clarification below the line at the bottom and electronically sign. The CDI & [facility] Coding staff will review the response and follow-up if needed. Please note: Queries are made part of the Legal Health Record. If you have any questions, please contact the author of this message via ITS. Dr. Reji Aj Conflicting documentation has been found in the medical record: DCS document ulcers and cellulitis bilaterally. Dr. Russ documents right leg ulcer with fat layer exposed. H and P documents patient with left leg ulcer. Wound assessment showing ulcer left branch. Please clarify if ulcer and cellulitis is left leg, right leg, bilateral legs. History/Risk Factors: ulcer with fat layer exposed, cellulits Treatment: honey gel applied, saline moistened gauze, dry guaze reji wrap and keep legs elevated In your opinion, what is the most clinically appropriate diagnosis for this patient? Left leg ulcer with fat layer exposed and cellulits Right leg ulcer with fat layer exposed and cellulitis Bilateral leg ulcers with fat layer exposed and cellulitis Other explanation of clinical findings Unable to determine (no explanation for clinical findings) Unable to determine MTDD
== END 2020-04-12 14:49 | disposition home health service (06) | DRG 871 ==
LOC: EC 14:03 → 3SCARD 17:52
PROVIDERS: ADMIT Hospitalist; ATTEND Hospitalist
DX: A41.51 Sepsis due to Escherichia coli [E. coli] (principal); I50.33 Acute on chronic diastolic (congestive) heart failure; J18.9 Pneumonia, unspecified organism; J96.21 Acute and chronic respiratory failure with hypoxia; R65.21 Severe sepsis with septic shock; E87.2 Acidosis; I13.0 Hypertensive heart and chronic kidney disease with heart failure and stage 1 through stage 4 chronic kidney disease, or unspecified chronic kidney disease; J44.0 Chronic obstructive pulmonary disease with (acute) lower respiratory infection; L03.116 Cellulitis of left lower limb; L03.115 Cellulitis of right lower limb; N17.9 Acute kidney failure, unspecified; N39.0 Urinary tract infection, site not specified; I87.333 Chronic venous hypertension (idiopathic) with ulcer and inflammation of bilateral lower extremity; L97.912 Non-pressure chronic ulcer of unspecified part of right lower leg with fat layer exposed; L97.829 Non-pressure chronic ulcer of other part of left lower leg with unspecified severity; E78.5 Hyperlipidemia, unspecified; E83.42 Hypomagnesemia; I07.1 Rheumatic tricuspid insufficiency; Z99.81 Dependence on supplemental oxygen; I27.20 Pulmonary hypertension, unspecified; I49.3 Ventricular premature depolarization; J84.112 Idiopathic pulmonary fibrosis; K21.9 Gastro-esophageal reflux disease without esophagitis; Z20.828 Contact with and (suspected) exposure to other viral communicable diseases; B96.20 Unspecified Escherichia coli [E. coli] as the cause of diseases classified elsewhere; L89.152 Pressure ulcer of sacral region, stage 2; N18.3 Chronic kidney disease, stage 3 (moderate); T50.2X5A Adverse effect of carbonic-anhydrase inhibitors, benzothiadiazides and other diuretics, initial encounter; Z79.52 Long term (current) use of systemic steroids; Z79.82 Long term (current) use of aspirin; Z79.899 Other long term (current) drug therapy; Z87.891 Personal history of nicotine dependence; Z90.49 Acquired absence of other specified parts of digestive tract; Z90.89 Acquired absence of other organs; Z88.5 Allergy status to narcotic agent; Z88.8 Allergy status to other drugs, medicaments and biological substances; Z91.040 Latex allergy status; I87.2 Venous insufficiency (chronic) (peripheral); Z87.01 Personal history of pneumonia (recurrent); M19.90 Unspecified osteoarthritis, unspecified site
CPT/HCPCS: 36415; 71045; 71046; 74176; 80048; 80053; 81001; 82150; 82550; 83605; 83690; 83735; 83880; 84484; 85025; 85610; 85730; 87040; 87070; 87077; 87086; 87186; 87205; 93005; 93306; 94640; 96365; 96368; 99291

== ENCOUNTER 2020-04-25 14:43 | Inpatient (IN) | payer MEDICARE ==
[2020-04-25 15:44] LABS: Basophils # (A) 0.1 k/uL (0-0.2); Basophils % (A) 1 %; Eosinophils # (A) 0.1 k/uL (0-0.7); Eosinophils % (A) 1 %; HGB 15.2 gm/dL (11.4-16.0); Lymphocytes # (A) 0.7 k/uL (1.0-4.8); Lymphocytes % (A) 6 %; MCHC 32.2 g/dL (31.0-37.0); MCV 96.3 fL (80.0-100.0); Monocytes # (A) 0.7 k/uL (0-1.0); Monocytes % (A) 5 %; Neutrophils # (A) 11.2 k/uL (1.3-7.7); Neutrophils % (A) 87 %; Platelet Count 158 k/uL (150-450); RBC 4.88 m/uL (3.80-5.40); RDW 15.7 % (11.5-15.5); WBC 12.9 k/uL (3.8-10.6)
[2020-04-25 15:53] LABS: Albumin 3.9 g/dL (3.5-5.0); Magnesium 1.6 mg/dL (1.6-2.3); Potassium 3.1 mmol/L (3.5-5.1); Total Bilirubin 2.8 mg/dL (0.2-1.3); Total Protein 8.2 g/dL (6.3-8.2)
--- NOTE | 2020-04-25 16:09 | ED ---
General Adult HPI - General Chief complaint: Recheck/Abnormal Lab/Rx Stated complaint: lab recheck Time Seen by Provider: 04/25/20 14:50 Source: patient, RN notes reviewed, old records reviewed Mode of arrival: wheelchair Limitations: no limitations - History of Present Illness Initial comments: This is a-year-old female presents emergency department stating that her doctor told her that she had some labs are abnormal she needs to come to the emergency department. Patient herself states she has only had some swelling in her leg and a little bit of shortness of breath when she exerts herself. Patient states she saw her communications supervisor today and he told her that she had pneumonia that has not completely gone away and she was given a prescription for antibiotics but before she can get them she was told to come to the hospital for her abnormal labs. Patient denies any chest pain or palpitations patient denies any fever chills or cough patient denies abdominal pain patient denies nausea vomiting diarrhea. Patient denies lightheadedness or dizziness patient denies any numbness or weakness. - Related Data Home Medications Medication Instructions Recorded Confirmed Cholecalciferol [Vitamin D3 (25 5,000 unit PO DAILY 09/18/16 04/25/20 Mcg = 1000 Iu)] Lansoprazole [Prevacid] 30 mg PO BID 09/18/16 04/25/20 Simvastatin [Zocor] 20 mg PO HS 09/18/16 04/25/20 Aspirin EC [Ecotrin Low Dose] 81 mg PO HS 04/06/20 04/25/20 Ipratropium-Albuterol Nebulize 3 ml INHALATION RT-QID PRN 04/06/20 04/25/20 [Duoneb 0.5 mg-3 mg/3 ml Soln] Montelukast Sodium [Singulair] 10 mg PO DAILY 04/06/20 04/25/20 Levofloxacin [Levaquin] 500 mg PO DAILY 04/25/20 04/25/20 Nitroglycerin Sl Tabs [Nitrostat] 0.4 mg SL Q5M PRN 04/25/20 04/25/20 Previous Rx's Medication Instructions Recorded Furosemide [Lasix] 40 mg PO BID@0900,1600 30 Days #60 04/12/20 tab Midodrine [ProAmatine] 10 mg PO AC-TID 30 Days #180 tab 04/12/20 Pantoprazole [Protonix] 40 mg PO AC-BRKFST 30 Days #30 04/12/20 tablet. predniSONE 10 mg PO DAILY 30 Days #30 tab 04/12/20 Allergies Allergy/AdvReac Type Severity Reaction Status Date / Time latex Allergy Rash/Hives Verified 04/25/20 17:07 hydrocodone AdvReac Nausea & Verified 04/25/20 17:07 Vomiting & Diarrhea meperidine [From Demerol] AdvReac Nausea & Verified 04/25/20 17:07 Vomiting & Diarrhea oxycodone AdvReac Nausea & Verified 04/25/20 17:07 Vomiting & Diarrhea pirfenidone AdvReac Kidney Verified 04/25/20 17:07 Pain (brand Esbriet) tramadol AdvReac Nausea & Verified 04/25/20 17:07 Vomiting & Diarrhea Review of Systems ROS Statement: Those systems with pertinent positive or pertinent negative responses have been documented in the HPI. ROS Other: All systems not noted in ROS Statement are negative. Past Medical History Past Medical History: GERD/Reflux, Hyperlipidemia, Hypertension, Pneumonia Additional Past Medical History / Comment(s): Pulm fibrosis History of Any Multi-Drug Resistant Organisms: None Reported Past Surgical History: Appendectomy, Orthopedic Surgery, Tonsillectomy Additional Past Surgical History / Comment(s): shoulder Past Psychological History: No Psychological Hx Reported Smoking Status: Former smoker Past Alcohol Use History: None Reported Past Drug Use History: None Reported General Exam - General Exam Comments Initial Comments: GENERAL: Patient is well-developed and well-nourished. Patient is nontoxic and well- hydrated and is in mild distress. ENT: Neck is soft and supple. No significant lymphadenopathy is noted. Oropharynx is clear. Moist mucous membranes. Neck has full range of motion without eliciting any pain. EYES: The sclera were anicteric and conjunctiva were pink and moist. Extraocular movements were intact and pupils were equal round and reactive to light. Eyelids were unremarkable. PULMONARY: Lungs have crackles bilateral bases. CARDIOVASCULAR: There is a regular rate and rhythm without any murmurs gallops or rubs. ABDOMEN: Soft and nontender with normal bowel sounds. No palpable organomegaly was noted. There is no palpable pulsatile mass. SKIN: Skin is clear with no lesions or rashes and otherwise unremarkable. NEUROLOGIC: Patient is alert and oriented x3. Cranial nerves II through XII are grossly intact. Motor and sensory are also intact. Normal speech, volume and content. Symmetrical smile. MUSCULOSKELETAL: Normal extremities with adequate strength and full range of motion. Mild edema LYMPHATICS: No significant lymphadenopathy is noted PSYCHIATRIC: Normal psychiatric evaluation. Limitations: no limitations Course Vital Signs 04/25/20 04/25/20 04/25/20 14:50 16:26 17:25 Temperature 98.6 F Pulse Rate 115 H 97 95 Respiratory 20 18 18 Rate Blood Pressure 102/68 102/68 104/68 O2 Sat by Pulse 80 L 94 L 95 Oximetry Medical Decision Making - Medical Decision Making EKG shows sinus tachycardia at 109 bpm with an occasional PVC. Patient's VT interval 212 QRS is 90 QT interval 346 QTC is 465. Patient's EKG shows some T- wave inversions in leads II, III, and F aVF. Chest x-ray shows a left lower lobe infiltrate and some venous congestion. I started the patient on Rocephin. I also started the patient on Lasix. I also put the patient on heparin because the elevated troponin. Patient has not yet experienced any chest pain at all. I spoke with Dr. Hartman he accepted the patient admitted the patient I consult to cardiology consult pulmonary and consulted - Lab Data Result diagrams: 04/25/20 15:28 04/25/20 15:28 Lab Results 04/25/20 04/25/20 04/25/20 Range/Units 15:28 15:28 15:28 WBC 12.9 H (3.8-10.6) k/uL RBC 4.88 (3.80-5.40) m/uL Hgb 15.2 (11.4-16.0) gm/dL Hct 47.0 H (34.0-46.0) % MCV 96.3 (80.0-100.0) fL MCH 31.0 (25.0-35.0) pg MCHC 32.2 (31.0-37.0) g/dL RDW 15.7 H (11.5-15.5) % Plt Count 158 (150-450) k/uL Neutrophils % 87 % Lymphocytes % 6 % Monocytes % 5 % Eosinophils % 1 % Basophils % 1 % Neutrophils # 11.2 H (1.3-7.7) k/uL Lymphocytes # 0.7 L (1.0-4.8) k/uL Monocytes # 0.7 (0-1.0) k/uL Eosinophils # 0.1 (0-0.7) k/uL Basophils # 0.1 (0-0.2) k/uL Sodium 132 L (137-145) mmol/L Potassium 3.1 L (3.5-5.1) mmol/L Chloride 85 L (98-107) mmol/L Carbon Dioxide 33 H (22-30) mmol/L Anion Gap 14 mmol/L BUN 58 H (7-17) mg/dL Creatinine 1.46 H (0.52-1.04) mg/dL Est GFR (CKD-EPI)AfAm 42 (>60 ml/min/1.73 sqM) Est GFR (CKD-EPI)NonAf 36 (>60 ml/min/1.73 sqM) Glucose 98 (74-99) mg/dL Plasma Lactic Acid Roman 2.0 (0.7-2.0) mmol/L Calcium 9.0 (8.4-10.2) mg/dL Magnesium 1.6 (1.6-2.3) mg/dL Total Bilirubin 2.8 H (0.2-1.3) mg/dL AST 48 H (14-36) U/L ALT 36 H (4-34) U/L Alkaline Phosphatase 106 (38-126) U/L Troponin I (0.000-0.034) ng/mL NT-Pro-B Natriuret Pep pg/mL Total Protein 8.2 (6.3-8.2) g/dL Albumin 3.9 (3.5-5.0) g/dL 04/25/20 04/25/20 Range/Units 15:28 15:28 WBC (3.8-10.6) k/uL RBC (3.80-5.40) m/uL Hgb (11.4-16.0) gm/dL Hct (34.0-46.0) % MCV (80.0-100.0) fL MCH (25.0-35.0) pg MCHC (31.0-37.0) g/dL RDW (11.5-15.5) % Plt Count (150-450) k/uL Neutrophils % % Lymphocytes % % Monocytes % % Eosinophils % % Basophils % % Neutrophils # (1.3-7.7) k/uL Lymphocytes # (1.0-4.8) k/uL Monocytes # (0-1.0) k/uL Eosinophils # (0-0.7) k/uL Basophils # (0-0.2) k/uL Sodium (137-145) mmol/L Potassium (3.5-5.1) mmol/L Chloride (98-107) mmol/L Carbon Dioxide (22-30) mmol/L Anion Gap mmol/L BUN (7-17) mg/dL Creatinine (0.52-1.04) mg/dL Est GFR (CKD-EPI)AfAm (>60 ml/min/1.73 sqM) Est GFR (CKD-EPI)NonAf (>60 ml/min/1.73 sqM) Glucose (74-99) mg/dL Plasma Lactic Acid Roman (0.7-2.0) mmol/L Calcium (8.4-10.2) mg/dL Magnesium (1.6-2.3) mg/dL Total Bilirubin (0.2-1.3) mg/dL AST (14-36) U/L ALT (4-34) U/L Alkaline Phosphatase (38-126) U/L Troponin I 0.163 H* (0.000-0.034) ng/mL NT-Pro-B Natriuret Pep 30952 pg/mL Total Protein (6.3-8.2) g/dL Albumin (3.5-5.0) g/dL Critical Care Time Critical Care Time: Yes Total Critical Care Time: 35 Disposition Clinical Impression: Pulmonary edema, Pneumonia, Non-STEMI (non-ST elevated myocardial infarction) Disposition: ADMITTED IP TO THIS HOSP Referrals: Artemio Melo DO [Primary Care Provider] - 1-2 days Time of Disposition: 18:25
--- NOTE | 2020-04-25 16:12 | XR ---
EXAMINATION TYPE: XR chest 2V DATE OF EXAM: 04/25/2020 CLINICAL HISTORY: Difficulty breathing. Shortness of breath. History of hypertension, pulmonary fibro sis, pneumonia TECHNIQUE: Frontal and lateral views of the chest are obtained. COMPARISON: Chest radiograph 04/09/2020 FINDINGS: The cardiomediastinal silhouette is within normal limits for size. There are redemonstrate d coarsened interstitial fibrotic lung markings. Unchanged small right pleural effusion. There is inc reased airspace opacity of the left lung base versus 04/09/2020. No pneumothorax seen. Degenerative ch anges of the right shoulder. IMPRESSION: 1. Increased airspace opacity of the left lung base versus 04/09/2020 comparison. Findings may repres ent atelectasis versus developing consolidation. 2. Unchanged small right pleural effusion. 3. Chronic interstitial pulmonary fibrosis.
[2020-04-25] MEDS ORDERED: cefTRIAXone IN SWFI 1,000 MG/10 ML SYRINGE IVP STA (16:31)
[2020-04-25] MEDS ORDERED: FUROSEMIDE 10 MG/ML 4 ML VIAL IV STA (16:49)
[2020-04-25] MEDS ORDERED: HEPARIN SODIUM,PORCINE 5,000 UNIT/ML 1 ML VIAL IV ONE (16:50)
[2020-04-25] MEDS ORDERED: NITROGLYCERIN OINT 1 INCH/GM PACKET TOPICAL STA (16:51)
[2020-04-25] MEDS ORDERED: ASPIRIN 325 MG TAB PO STA (16:51)
[2020-04-25] MEDS: HEPARIN SOD,PORK IN 0.45% NACL 25,000 UNIT in 0.45% NACL 1 250ML.BAG IV SCH (17:29)
[2020-04-25] MEDS ORDERED: AZITHROMYCIN 500 MG in SODIUM CHLORIDE 0.9% 250 ML IVPB STA (18:28)
[2020-04-25] MEDS ORDERED: PNEUMONIA PROTOCOL UTILIZED 1 EACH MISC PO PRN (18:28)
[2020-04-25] MEDS ORDERED: PIPERACILLIN-TAZOBACTAM 3.375 GM in SODIUM CHLORIDE 0.9% 100 ML IVPB STA (18:28)
[2020-04-25] MEDS ORDERED: Potassium Replacement Protocol 1 EACH MISC MISCELLANE PRN (22:44)
[2020-04-25] MEDS: ASPIRIN 81 MG PO SCH (23:25)
[2020-04-25] MEDS: PIPERACILLIN-TAZOBACTAM 3.375 GM in SODIUM CHLORIDE 0.9% 100 ML IVPB SCH (23:25)
[2020-04-26] MEDS: FUROSEMIDE 10 MG/ML 2 ML VIAL IV SCH ×2 (06:09→18:06)
[2020-04-26] MEDS: MIDODRINE 5 MG TAB PO SCH ×3 (06:10→18:06)
[2020-04-26] MEDS: PANTOPRAZOLE 40 MG TABLET PO SCH (06:10)
[2020-04-26 07:23] LABS: Basophils # (A) 0.1 k/uL (0-0.2); Basophils % (A) 1 %; Eosinophils # (A) 0.2 k/uL (0-0.7); Eosinophils % (A) 2 %; HCT 45.6 % (34.0-46.0); HGB 14.4 gm/dL (11.4-16.0); Lymphocytes # (A) 0.6 k/uL (1.0-4.8); Lymphocytes % (A) 6 %; MCHC 31.6 g/dL (31.0-37.0); MCV 98.1 fL (80.0-100.0); Macrocytosis Slight; Mean Platelet Volume 9.1; Monocytes # (A) 0.4 k/uL (0-1.0); Monocytes % (A) 5 %; Neutrophils # (A) 8.1 k/uL (1.3-7.7); Neutrophils % (A) 84 %; Platelet Count 122 k/uL (150-450); RBC 4.65 m/uL (3.80-5.40); RDW 15.9 % (11.5-15.5); WBC 9.6 k/uL (3.8-10.6)
[2020-04-26 07:46] LABS: Calcium 8.2 mg/dL (8.4-10.2)
[2020-04-26 08:06] LABS: Potassium 2.3 mmol/L (3.5-5.1)
[2020-04-26] MEDS: POTASSIUM CHLORIDE 10 MEQ in WATER FOR INJECTION 1 100ML.BAG IVPB SCH ×6 (08:47→20:14)
[2020-04-26] MEDS: predniSONE 10 MG TAB PO SCH (08:48)
[2020-04-26] MEDS: PIPERACILLIN-TAZOBACTAM 3.375 GM in SODIUM CHLORIDE 0.9% 100 ML IVPB SCH (08:48)
[2020-04-26] MEDS: CHOLECALCIFEROL 1,000 UNIT TAB PO SCH (08:48)
[2020-04-26] MEDS: MONTELUKAST 10 MG TAB PO SCH (08:49)
--- NOTE | 2020-04-26 08:54 | P.CRDCN ---
History of Present Illness Consult date: 04/26/20 Requesting physician: Audrey Hartman Reason for Consult (text): Non-STEMI Chief complaint: abnormal labs at PCP History of present illness: This is a pleasant 69-year-old female patient who follows with Dr. Myles. She has a history of hyperlipidemia, hypertension, GERD, chronic kidney disease and pulmonary fibrosis. She had a recent admission here for pneumonia, pleural effusion and acute kidney injury. At that time her NT proBNP was elevated at 34,300. She was diuresed. Echocardiogram showed normal LV systolic function with severely enlarged RV, moderate to severe TR, severe pulmonary hypertension, and moderate pulmonary regurgitation. She was apparently seen in follow-up at h primary care physician's office 2 days ago and had labs drawn. She was also seen by Dr. Farias and yesterday who did a chest x-ray and was prescribing more antibiotics if he felt her pneumonia had not resolved. She was then called by her primary care physician and recommended to come to the emergency department due to abnormal labs. Labs from 04/24/2020 showed white blood cell, 11,500, sodium 134, potassium 2.9, BUN 59, creatinine 1.6. Chest x-ray on arrival showed increased air space opacity of the left lung base versus 04/09/2020 comparison, findings may represent atelectasis versus developing consolidation, unchanged small right pleural effusion and chronic interstitial pulmonary fibrosis. EKG showed sinus tachycardia with PVCs and T-wave abnormalities in the inferior leads which appear to be similar compared to EKG done during last admission. Labs on admission showed white blood cell count 12,900, sodium 132, potassium 3.1, BUN 58, creatinine 1.46 and NT proBNP of 17,700. We were asked to see the patient in consultation due to abnormal troponins which were 0.163, 0.163 and 0.186. Patient has no complaints of chest discomfort. Overall she felt that she was actually beginning to feel better. Her breathing was improving, energy and strength were improving and her appetite was improving. SpO2 was documented at 80% on 2 L on presentation. Labs this morning showed white blood cell count 9600, sodium 133, potassium 2.3, BUN 55 and creatinine 1.46. Patient was seen and examined sitting up in a chair. She states she does sleep in a recliner at home as she does experience some orthopnea. She continues to have some lower extremity edema but this is improving. She has some wounds on her left foot and the left foot and ankle are wrapped. Past Medical History Past Medical History: GERD/Reflux, Hyperlipidemia, Hypertension, Pneumonia Additional Past Medical History / Comment(s): Pulm fibrosis History of Any Multi-Drug Resistant Organisms: None Reported Past Surgical History: Appendectomy, Orthopedic Surgery, Tonsillectomy Additional Past Surgical History / Comment(s): shoulder Past Anesthesia/Blood Transfusion Reactions: No Reported Reaction Past Psychological History: No Psychological Hx Reported Smoking Status: Former smoker Past Alcohol Use History: None Reported Past Drug Use History: None Reported Medications and Allergies Home Medications Medication Instructions Recorded Confirmed Type Cholecalciferol [Vitamin D3 (25 5,000 unit PO DAILY 09/18/16 04/25/20 History Mcg = 1000 Iu)] Lansoprazole [Prevacid] 30 mg PO BID 09/18/16 04/25/20 History Simvastatin [Zocor] 20 mg PO HS 09/18/16 04/25/20 History Aspirin EC [Ecotrin Low Dose] 81 mg PO HS 04/06/20 04/25/20 History Ipratropium-Albuterol Nebulize 3 ml INHALATION RT-QID PRN 04/06/20 04/25/20 History [Duoneb 0.5 mg-3 mg/3 ml Soln] Montelukast Sodium [Singulair] 10 mg PO DAILY 04/06/20 04/25/20 History Furosemide [Lasix] 40 mg PO BID@0900,1600 30 Days #60 04/12/20 04/25/20 Rx tab Midodrine [ProAmatine] 10 mg PO AC-TID 30 Days #180 tab 04/12/20 04/25/20 Rx Pantoprazole [Protonix] 40 mg PO AC-BRKFST 30 Days #30 04/12/20 04/25/20 Rx tablet. predniSONE 10 mg PO DAILY 30 Days #30 tab 04/12/20 04/25/20 Rx Levofloxacin [Levaquin] 500 mg PO DAILY 04/25/20 04/25/20 History Nitroglycerin Sl Tabs [Nitrostat] 0.4 mg SL Q5M PRN 04/25/20 04/25/20 History Allergies Allergy/AdvReac Type Severity Reaction Status Date / Time latex Allergy Rash/Hives Verified 04/25/20 17:07 hydrocodone AdvReac Nausea & Verified 04/25/20 17:07 Vomiting & Diarrhea meperidine [From Demerol] AdvReac Nausea & Verified 04/25/20 17:07 Vomiting & Diarrhea oxycodone AdvReac Nausea & Verified 04/25/20 17:07 Vomiting & Diarrhea pirfenidone AdvReac Kidney Verified 04/25/20 17:07 Pain (brand Esbriet) tramadol AdvReac Nausea & Verified 04/25/20 17:07 Vomiting & Diarrhea Physical Exam Vitals: Vital Signs Temp Pulse Pulse Resp BP BP Pulse Ox 04/26/20 03:49 98.2 F 70 18 97/59 98 04/26/20 00:00 98 F 94 17 94/50 95 04/25/20 19:45 98.1 F 101 H 19 110/45 95 04/25/20 18:51 97 18 112/64 94 L 04/25/20 17:25 95 18 104/68 95 04/25/20 16:26 97 18 102/68 94 L 04/25/20 14:50 98.6 F 115 H 20 102/68 80 L Intake and Output 04/25/20 04/26/20 04/26/20 22:59 06:59 14:59 Other: # Voids 1 Weight 65.771 kg 64.9 kg PHYSICAL EXAMINATION: This is a 69-year-old female in no apparent distress at the time of my examination. VITAL SIGNS: Blood pressure 91/52, heart rate 84, respirations 18, temp 98.2F. Patient is 94% % on 3 L via nasal cannula. HEENT: Head is atraumatic, normocephalic. Pupils are equal, round. Sclerae anicteric. Conjunctivae are clear. Mucous membranes of the mouth are moist. Neck is supple. There is no elevated jugular venous pressure. No carotid bruit is heard. CHEST EXAMINATION: Lungs revealed diminished air exchange with scattered dry crackles. No wheezes or rhonchi. Respirations even and nonlabored. HEART EXAMINATION: Heart regular with extrasystole, positive S1 and S2 with a systolic murmur. ABDOMEN: Soft, mild right upper quadrant tenderness on palpation. Bowel sounds are heard. No organomegaly noted. EXTREMITIES: 1+ peripheral pulses with evidence of mild peripheral edema that appears to be improving and no calf tenderness noted. NEUROLOGIC EXAMINATION: Patient is awake, alert and oriented x3. Results 04/26/20 06:58 04/27/20 06:17 Cardiac Enzymes 04/25/20 04/25/20 04/25/20 Range/Units 15:28 15:28 19:12 AST 48 H (14-36) U/L Troponin I 0.163 H* 0.163 H* (0.000-0.034) ng/mL 04/25/20 Range/Units 23:24 AST (14-36) U/L Troponin I 0.186 H* (0.000-0.034) ng/mL Coagulation 04/25/20 04/26/20 Range/Units 23:24 06:58 APTT 54.0 H 44.4 H (22.0-30.0) sec CBC 04/25/20 04/26/20 Range/Units 15:28 06:58 WBC 12.9 H 9.6 (3.8-10.6) k/uL RBC 4.88 4.65 (3.80-5.40) m/uL Hgb 15.2 14.4 (11.4-16.0) gm/dL Hct 47.0 H 45.6 (34.0-46.0) % Plt Count 158 122 L (150-450) k/uL Comprehensive Metabolic Panel 04/25/20 04/26/20 Range/Units 15:28 06:58 Sodium 132 L 133 L (137-145) mmol/L Potassium 3.1 L 2.3 L* (3.5-5.1) mmol/L Chloride 85 L 86 L (98-107) mmol/L Carbon Dioxide 33 H 37 H (22-30) mmol/L BUN 58 H 55 H (7-17) mg/dL Creatinine 1.46 H 1.46 H (0.52-1.04) mg/dL Glucose 98 88 (74-99) mg/dL Calcium 9.0 8.2 L (8.4-10.2) mg/dL AST 48 H (14-36) U/L ALT 36 H (4-34) U/L Alkaline Phosphatase 106 (38-126) U/L Total Protein 8.2 (6.3-8.2) g/dL Albumin 3.9 (3.5-5.0) g/dL Current Medications Generic Name Dose Route Start Last Admin Trade Name Freq PRN Reason Stop Dose Admin Albuterol/Ipratropium 3 ml 04/25/20 22:45 Duoneb 0.5 Mg-3 Mg/3 Ml Soln INHALATION RT-QID PRN Shortness Of Breath Aspirin 81 mg 04/25/20 23:00 04/25/20 23:25 Aspirin PO 81 mg HS DESI Administration Atorvastatin Calcium 10 mg 04/26/20 21:00 Lipitor PO HS DESI Cholecalciferol 5,000 unit 04/26/20 09:00 Vitamin D3 (25 Mcg = 1000 Iu) PO DAILY DESI Furosemide 20 mg 04/26/20 06:00 04/26/20 06:09 Lasix IV 20 mg Q12H DESI Administration Heparin Sodium/Sodium Chloride 250 mls @ 7.893 mls/hr 04/25/20 17:00 04/25/20 17:29 25,000 unit/ Sodium Chloride IV 12 units/kg/hr .Q24H DESI 7.893 mls/hr Administration Protocol 12 UNITS/KG/HR Piperacillin Sod/Tazobactam 100 mls @ 25 mls/hr 04/26/20 00:00 04/25/20 23:25 Sod 3.375 gm/ Sodium Chloride IVPB 05/03/20 00:01 25 mls/hr Q8HR DESI Administration Azithromycin 500 mg/ Sodium 250 mls @ 250 mls/hr 04/26/20 18:00 Chloride IVPB 04/30/20 18:01 DAILY@1800 DESI Potassium Chloride 20 meq/ IV 100 mls @ 50 mls/hr 04/26/20 10:00 Solution IVPB 04/26/20 17:59 Q2HR DESI Protocol Midodrine 10 mg 04/26/20 07:30 04/26/20 06:10 Proamatine PO 10 mg AC-TID DESI Administration Miscellaneous Information 1 each 04/25/20 18:28 Pneumonia Protocol Utilized PO ONCE PRN Per Protocol Miscellaneous Information 1 each 04/25/20 22:44 Potassium Per Protocol MISCELLANE DAILY PRN Per Protocol Protocol Montelukast Sodium 10 mg 04/26/20 09:00 Singulair PO DAILY DESI Pantoprazole Sodium 40 mg 04/26/20 07:30 04/26/20 06:10 Protonix PO 40 mg AC-BRKFST DESI Administration Potassium Chloride 20 meq 04/26/20 10:00 K-Dur 20 PO 04/26/20 14:01 Q2HR DESI Prednisone 10 mg 04/26/20 09:00 PO DAILY DESI Intake and Output 04/25/20 04/26/20 04/26/20 22:59 06:59 14:59 Other: # Voids 1 Weight 65.771 kg 64.9 kg 04/26/20 06:58 04/26/20 06:58 Assessment and Plan Assessment: #1 abnormal troponins, likely secondary to hypoxemia #2 chronic diastolic congestive heart failure with improving NT proBNP, improving edema and improving symptoms of dyspnea #3 severe pulmonary fibrosis #4 pneumonia #5 severe pulmonary hypertension #6 hypokalemia #7 chronic kidney disease #8 small pleural effusion Plan: From cardiology perspective, abnormal troponin appears to be secondary to type II event due to hypoxemia. We will discontinue IV heparin. No further cardiac workup at this time. Continue current medications. We'll continue to follow the patient and provide further recommendations accordingly. VISE HAND note has been reviewed, I agree with a documented findings and plan of care. Patient was seen and examined.
[2020-04-26] MEDS ORDERED: POTASSIUM CHLORIDE ER 20 MEQ TAB.ER PO SCH (10:00)
[2020-04-26] MEDS ORDERED: POTASSIUM CHLORIDE 20 MEQ in WATER FOR INJECTION 1 100ML.BAG IVPB SCH (10:00)
[2020-04-26 10:30] VITALS: BMI 24.5
[2020-04-26] MEDS ORDERED: Magnesium Replacement Protocol 1 EACH MISC MISCELLANE PRN (10:41)
[2020-04-26] MEDS: MAGNESIUM SULFATE-D5W PMX 1 GM in DEXTROSE/WATER 1 100ML.BAG IVPB SCH ×3 (10:47→18:08)
--- NOTE | 2020-04-26 10:54 | P.HPIM ---
History of Present Illness H&P Date: 04/25/20 Chief Complaint: Abnormal lab value. Patient is a 69-year-old female with a known history of hypertension, hyperlipidemia, pulmonary fibrosis, GERD and recent history of pneumonia with sputum cultures growing stenotrophomonas and Radha and also sepsis secondary to urinary tract infection. Patient was discharged home on 04/12/2020. Patient states that she has been feeling very well and was seen at Dr. Blankenship's office. Patient had lab work-up done. Patient was called today to come to the ER due to abdominal lab findings. Patient also had chest x-ray at doctor's office. Otherwise patient denied any complaints of chest pain or shortness of breath. Patient does have improved leg swelling compared to previous admission. Denied any complaints of chest pain. No fever no chills. No worsening shortness of breath. No headache or dizziness or lightheadedness. Patient says that she had a cough in the ER and was able to bring UP thick sputum which made her symptomatically better. Laboratory data showed WBC 12.9, hemoglobin 15.1 platelets 158 Sodium 132, potassium 3.1, chloride 85 and bicarb is 33 BUN 58 and creatinine 1.46 Last creatinine at discharge on 04/12/2020 was1.27 Troponin 0 0.163, 0.163 and 0.186 proBNP 89600 Albumin 3.9 Chest x-ray showed increased airspace opacity of the left lung base versus 04/09/2020. Findings may represent atelectasis versus developing consolidation. Unchanged right small pleural effusion. Chronic interstitial pulmonary fibrosis. Review of Systems Constitutional: Patient denies any fever or chills . No generalized weakness or weight loss. Abdomen: Patient denied nausea vomiting and diarrhea and abdominal pain. Cardiovascular: Patient denies any chest pain or short of breath no palpitations. Respiratory: Patient does have cough without much sputum production. Shortness of breath present. Neurologic: Patient denied any numbness or tingling headache. Musculoskeletal: Patient denies any complaints of joint swelling or deformity. Skin: Negative Psychiatric: Negative Endocrine: No heat or cold intolerance. No recent weight gain. Genitourinary: No dysuria or hematuria. All other 14 point ROS negative except the above Past Medical History Past Medical History: GERD/Reflux, Hyperlipidemia, Hypertension, Pneumonia Additional Past Medical History / Comment(s): Pulm fibrosis History of Any Multi-Drug Resistant Organisms: None Reported Past Surgical History: Appendectomy, Orthopedic Surgery, Tonsillectomy Additional Past Surgical History / Comment(s): shoulder Past Anesthesia/Blood Transfusion Reactions: No Reported Reaction Past Psychological History: No Psychological Hx Reported Smoking Status: Former smoker Past Alcohol Use History: None Reported Past Drug Use History: None Reported Medications and Allergies Home Medications Medication Instructions Recorded Confirmed Type Cholecalciferol [Vitamin D3 (25 5,000 unit PO DAILY 09/18/16 04/25/20 History Mcg = 1000 Iu)] Lansoprazole [Prevacid] 30 mg PO BID 09/18/16 04/25/20 History Simvastatin [Zocor] 20 mg PO HS 09/18/16 04/25/20 History Aspirin EC [Ecotrin Low Dose] 81 mg PO HS 04/06/20 04/25/20 History Ipratropium-Albuterol Nebulize 3 ml INHALATION RT-QID PRN 04/06/20 04/25/20 History [Duoneb 0.5 mg-3 mg/3 ml Soln] Montelukast Sodium [Singulair] 10 mg PO DAILY 04/06/20 04/25/20 History Furosemide [Lasix] 40 mg PO BID@0900,1600 30 Days #60 04/12/20 04/25/20 Rx tab Midodrine [ProAmatine] 10 mg PO AC-TID 30 Days #180 tab 04/12/20 04/25/20 Rx Pantoprazole [Protonix] 40 mg PO AC-BRKFST 30 Days #30 04/12/20 04/25/20 Rx tablet. predniSONE 10 mg PO DAILY 30 Days #30 tab 04/12/20 04/25/20 Rx Levofloxacin [Levaquin] 500 mg PO DAILY 04/25/20 04/25/20 History Nitroglycerin Sl Tabs [Nitrostat] 0.4 mg SL Q5M PRN 04/25/20 04/25/20 History Allergies Allergy/AdvReac Type Severity Reaction Status Date / Time latex Allergy Rash/Hives Verified 04/25/20 17:07 hydrocodone AdvReac Nausea & Verified 04/25/20 17:07 Vomiting & Diarrhea meperidine [From Demerol] AdvReac Nausea & Verified 04/25/20 17:07 Vomiting & Diarrhea oxycodone AdvReac Nausea & Verified 04/25/20 17:07 Vomiting & Diarrhea pirfenidone AdvReac Kidney Verified 04/25/20 17:07 Pain (brand Esbriet) tramadol AdvReac Nausea & Verified 04/25/20 17:07 Vomiting & Diarrhea Physical Exam Vitals: Vital Signs Temp Pulse Resp BP Pulse Ox 04/25/20 18:51 97 18 112/64 94 L 04/25/20 17:25 95 18 104/68 95 04/25/20 16:26 97 18 102/68 94 L 04/25/20 14:50 98.6 F 115 H 20 102/68 80 L Intake and Output 04/25/20 04/25/20 04/25/20 06:59 14:59 22:59 Other: Weight 65.771 kg 65.771 kg PHYSICAL EXAMINATION: Patient is lying in the bed comfortably, no acute distress, awake alert and oriented.. HEENT: Normocephalic. Neck is supple. Pupils reactive. Nostrils clear. Oral cavity is moist. Ears reveal no drainage. Neck reveals no JVD, carotid bruits, or thyromegaly. CHEST EXAMINATION: Trachea is central. Symmetrical expansion. Diffuse fine crackles and coarse breath sounds in the left lower lobe. No wheezing.. CARDIAC: Normal S1, S2 with no gallops. No murmurs ABDOMEN: Soft. Bowel sounds normal. No organomegaly. No abdominal bruits. Extremities: 1+ bilateral pedal edema. No clubbing or cyanosis Neurologically awake, alert, oriented x3 with well-coordinated movements. No focal deficits noted Skin: No rash or skin lesions. Psychiatric: Coperative. Nonsuicidal Musculoskeletal: No joint swelling or deformity. Normal range of motion. Results CBC & Chem 7: 04/26/20 06:58 04/26/20 06:58 Labs: Abnormal Lab Results - Last 24 Hours (Table) 04/25/20 04/25/20 04/25/20 Range/Units 15:28 15:28 15:28 WBC 12.9 H (3.8-10.6) k/uL Hct 47.0 H (34.0-46.0) % RDW 15.7 H (11.5-15.5) % Neutrophils # 11.2 H (1.3-7.7) k/uL Lymphocytes # 0.7 L (1.0-4.8) k/uL Sodium 132 L (137-145) mmol/L Potassium 3.1 L (3.5-5.1) mmol/L Chloride 85 L (98-107) mmol/L Carbon Dioxide 33 H (22-30) mmol/L BUN 58 H (7-17) mg/dL Creatinine 1.46 H (0.52-1.04) mg/dL Total Bilirubin 2.8 H (0.2-1.3) mg/dL AST 48 H (14-36) U/L ALT 36 H (4-34) U/L Troponin I 0.163 H* (0.000-0.034) ng/mL 04/25/20 Range/Units 19:12 WBC (3.8-10.6) k/uL Hct (34.0-46.0) % RDW (11.5-15.5) % Neutrophils # (1.3-7.7) k/uL Lymphocytes # (1.0-4.8) k/uL Sodium (137-145) mmol/L Potassium (3.5-5.1) mmol/L Chloride (98-107) mmol/L Carbon Dioxide (22-30) mmol/L BUN (7-17) mg/dL Creatinine (0.52-1.04) mg/dL Total Bilirubin (0.2-1.3) mg/dL AST (14-36) U/L ALT (4-34) U/L Troponin I 0.163 H* (0.000-0.034) ng/mL Thrombosis Risk Factor Assmnt - Choose All That Apply Each Risk Factor Represents 2 Points: Age 61-74 years Thrombosis Risk Factor Assessment Total Risk Factor Score: 2 Thrombosis Risk Factor Assessment Level: Low Risk Assessment and Plan Assessment: Left lower lung pneumonia worsening compared to be previous exam. Elevated troponin level. Possible non-ST elevated AL Recent sepsis secondary pneumonia and UTI/E. coli Acute kidney injury most likely prerenal possibly ATN. Severe hypokalemia 3.1 Chronic hypoxic respiratory failure secondary to pulmonary fibrosis Hypertension Hyperlipidemia Idiopathic pulmonary fibrosis DVT prophylaxis Plan: Have patient be continued on antibiotics in the form of ceftriaxone azithromycin. Sputum cultures will be ordered. Pulmonary was consulted due to left lung the lobe worsening consolidation. Patient was started on heparin drip due to elevated troponin level. Continue with aspirin and statins . 2D echocardiogram will be ordered and cardiology consult. Replace electrolytes and follow-up CBC and BMP tomorrow. Prognosis guarded with continued problems and comorbid conditions. Time with Patient: Greater than 30
--- NOTE | 2020-04-26 11:17 | XR ---
EXAMINATION TYPE: XR chest 2V DATE OF EXAM: 04/26/2020 CLINICAL HISTORY: Pneumonia TECHNIQUE: Frontal and lateral views of the chest are obtained. COMPARISON: Chest radiograph 04/25/2020 FINDINGS: The cardiomediastinal silhouette is within normal limits for size. Redemonstrated coarsene d residual fibrotic lung markings. Unchanged small left pleural effusion. There is improved aeration of the left lung base with mild persistent subsegmental atelectasis. No pneumothorax. Degenerative ch anges of the spine. IMPRESSION: 1. Improved aeration of the left lung base versus 04/25/2020, with mild persistent linear atelectasis. 2. Unchanged chronic interstitial pulmonary fibrosis and small right pleural effusion.
--- NOTE | 2020-04-26 12:28 | CDI ---
Documentation Clarification Form Date: 04/26/2020 11:08:26 AM From: Kelsy May RN CCDS Admit Date: 04/25/2020 06:33:00 PM Patient Name: Sharon Tripp Visit Number: [id number] Discharge Date: ATTENTION: The Clinical Documentation Specialists (CDI) and [facility] Coding Staff appreciate your assistance in clarifying documentation. Please respond to the clarification below the line at the bottom and electronically sign. The CDI & [facility] Coding staff will review the response and follow-up if needed. Please note: Queries are made part of the Legal Health Record. If you have any questions, please contact the author of this message via ITS. Dr. Melanie Castle Possible non-ST elevated DC is documented in the H&P 04/25 Patient History/Risk Factors: 69-year-old female presents to the ED for abnormal labs. Recent discharge from hospital on 04/12 for Sepsis secondary to UTI and pneumonia. Medical history: CKD, CHF, HLD and HTN Clinical Indicators: 04/25 14:50 B/P: 102/68; HR: 115; RR: 20; SpO2 80% 2L nasal cannula 04/25 16:26 RR: 18; SpO2 94% 5L nasal cannula; 04/26: RR: 18; SpO2 94% 3L nasal cannula 04/25 Troponin: 0.163; 0.163; 0.186 04/25 EKG Results: Sinus tachycardia with premature supraventricular complexes and with frequent and consecutive premature ventricular complexes. Right axis deviation. T wave abnormality consider inferior ischemia. Abnormal ECG. 04/26 Cardiology Consult: Abnormal troponin appears to be secondary to type II event due to hypoxemia. Treatment: Cardiology consult see above; Oxygen via nasal cannula 2L to 5L see above; 04/25 Duoneb QID PRN for shortness of breath. In order to capture the severity of condition and necessary documentation specificity, please clarify: Type of Infarction: Type 2 DC secondary to hypoxemia XXXX Type 2 DC secondary to (please specify) Unable to determine Other Condition, please specify (Last Revision: June 2017) MTDD
--- NOTE | 2020-04-26 12:56 | CDI ---
Documentation Clarification Form Date: 04/26/2020 12:35:11 PM From: Kelsy May RN CCDS Admit Date: 04/25/2020 06:33:00 PM Patient Name: Sharon Tripp Visit Number: [id number] Discharge Date: ATTENTION: The Clinical Documentation Specialists (CDI) and [facility] Coding Staff appreciate your assistance in clarifying documentation. Please respond to the clarification below the line at the bottom and electronically sign. The CDI & [facility] Coding staff will review the response and follow-up if needed. Please note: Queries are made part of the Legal Health Record. If you have any questions, please contact the author of this message via ITS. Dr. Melanie Castle Chronic diastolic congestive heart failure is documented in the Cardiology consult 04/26 History/Risk Factors: 69-year-old female presents to the ED for abnormal labs. Recent discharge from hospital on 04/12 for Sepsis secondary to UTI and pneumonia. Medical history: CKD, CHF, HLD and HTN. Home medication Lasix 40mg BID; Clinical Indicators: VS/Pulse OX: 04/25 14:50 B/P: 102/68; HR: 115; RR: 20; SpO2 80% 2L nasal cannula 04/25 BNP: 53082 04/07 Echocardiogram Results: Left ventricular systolic function is normal with an EF between 60-65%. There is septal flattening in diastole and systole which is consistent with right ventricular pressure and volume overload. 04/25 Chest X Ray: Increased airspace opacity of the left lung base vs 04/09/20 comparison. Findings may represent atelectasis versus developing consolidation. Unchanged small right pleural effusion. Chronic interstitial pulmonary fibrosis. 04/25 Physical Exam H&P: Extremities: 1+ bilateral pedal edema. Treatment: 04/25 Lasix 40mg Ivpb x1; 04/26 Lasix 20mg Ivpb Q 12 H In your professional opinion, can you please clarify the acuity and type of CHF if known? Chronic Diastolic Heart Failure XXX Acute on Chronic Heart Failure Unable to Determine Other, please specify (Last Revision: December 2017) MTDD
--- NOTE | 2020-04-26 14:14 | P.CNPUL ---
History of Present Illness Consult date: 04/26/20 Requesting physician: Audrey Hartman Reason for consult: dyspnea Chief complaint: Right lower lobe pneumonia, shortness of breath History of present illness: 69-year-old white female patient with history of IPF on home oxygen, trialed on Esbriet which was discontinued related to GI symptoms, hypertension, hyperlipidemia, GERD/reflux, who had a recent admission in March, for acute exacerbation of CHF with diastolic dysfunction, right lower lobe pneumonia, urinary tract infection related to E. coli, acute kidney injury. Patient also had left leg wound with cultures positive for E. coli, her sputum culture was positive for Stenotrophomonas maltophilia, which was not known until after discharge, and patient was discharged home on oral Ceftin. Patient was seen by Dr. Camara in the office on 04/25/2020 for hospital follow-up. Clinically she was feeling better, follow-up chest x-ray in the office showed some residual infiltration in the right lower lobe and small pleural effusion. Patient presented to the emergency department in the afternoon on 04/25/2020 for abnormal lab results. Her proBNP was significantly elevated at 17,700. Potassium was 2.9, BUN was 59, creatinine was 1.6. No worsening dyspnea, patient has chronic shortness of breath related to history of IPF, she did note a mildly increased swelling, she is on home dose Lasix of 40 mg twice daily, she was given 7 day course of oral Levaquin by Dr. Camara during yesterday's outpatient visit. No complaints of chest pain. Chest x-ray was complaints showing increased airspace opacity of the left lung base, that could represent atelectasis versus developing consolidation, and unchanged small right pleural effusion. Labs showed a white blood cell, 12.9, hemoglobin 15.2, sodium was 132, potassium is 3.1, chloride was 85, CO2 of 33, BUN is 58, creatinine was 1.46, troponins were elevated to 0.163, 0.163 and 0.186, proBNP was 17,700. Patient was afebrile, she is on her usual 2 L of oxygen, her pulse ox is 94-98%, hemodynamically she is stable. She is short of breath with exertion, but this is chronic for her. Antibiotics were started in the form of azithromycin and Rocephin, then switched to Zosyn, however recent review of her sputum culture showed Stenotrophomonas maltophilia with sensitivity to ceftazidime, and Bactrim, and intermediate sensitivity to Levaquin. Review of Systems All systems: negative Constitutional: Denies chills, Denies fever Eyes: denies blurred vision, denies pain Ears, nose, mouth and throat: Denies headache, Denies sore throat Cardiovascular: Reports leg edema, Denies chest pain, Denies shortness of breath Respiratory: Reports dyspnea, Denies cough Gastrointestinal: Denies abdominal pain, Denies diarrhea, Denies nausea, Denies vomiting Genitourinary: Denies dysuria, Denies hematuria Musculoskeletal: Denies myalgias Integumentary: Denies pruritus, Denies rash Neurological: Denies numbness, Denies weakness Psychiatric: Denies anxiety, Denies depression Endocrine: Denies fatigue, Denies weight change Past Medical History Past Medical History: GERD/Reflux, Hyperlipidemia, Hypertension, Pneumonia Additional Past Medical History / Comment(s): Pulm fibrosis History of Any Multi-Drug Resistant Organisms: None Reported Past Surgical History: Appendectomy, Orthopedic Surgery, Tonsillectomy Additional Past Surgical History / Comment(s): shoulder Past Anesthesia/Blood Transfusion Reactions: No Reported Reaction Past Psychological History: No Psychological Hx Reported Smoking Status: Former smoker Past Alcohol Use History: None Reported Past Drug Use History: None Reported Medications and Allergies Home Medications Medication Instructions Recorded Confirmed Type Cholecalciferol [Vitamin D3 (25 5,000 unit PO DAILY 09/18/16 04/25/20 History Mcg = 1000 Iu)] Lansoprazole [Prevacid] 30 mg PO BID 09/18/16 04/25/20 History Simvastatin [Zocor] 20 mg PO HS 09/18/16 04/25/20 History Aspirin EC [Ecotrin Low Dose] 81 mg PO HS 04/06/20 04/25/20 History Ipratropium-Albuterol Nebulize 3 ml INHALATION RT-QID PRN 04/06/20 04/25/20 History [Duoneb 0.5 mg-3 mg/3 ml Soln] Montelukast Sodium [Singulair] 10 mg PO DAILY 04/06/20 04/25/20 History Furosemide [Lasix] 40 mg PO BID@0900,1600 30 Days #60 04/12/20 04/25/20 Rx tab Midodrine [ProAmatine] 10 mg PO AC-TID 30 Days #180 tab 04/12/20 04/25/20 Rx Pantoprazole [Protonix] 40 mg PO AC-BRKFST 30 Days #30 04/12/20 04/25/20 Rx tablet. predniSONE 10 mg PO DAILY 30 Days #30 tab 04/12/20 04/25/20 Rx Levofloxacin [Levaquin] 500 mg PO DAILY 04/25/20 04/25/20 History Nitroglycerin Sl Tabs [Nitrostat] 0.4 mg SL Q5M PRN 04/25/20 04/25/20 History Allergies Allergy/AdvReac Type Severity Reaction Status Date / Time latex Allergy Rash/Hives Verified 04/25/20 17:07 hydrocodone AdvReac Nausea & Verified 04/25/20 17:07 Vomiting & Diarrhea meperidine [From Demerol] AdvReac Nausea & Verified 04/25/20 17:07 Vomiting & Diarrhea oxycodone AdvReac Nausea & Verified 04/25/20 17:07 Vomiting & Diarrhea pirfenidone AdvReac Kidney Verified 04/25/20 17:07 Pain (brand Esbriet) tramadol AdvReac Nausea & Verified 04/25/20 17:07 Vomiting & Diarrhea Physical Exam Vitals: Vital Signs Temp Pulse Pulse Resp BP BP Pulse Ox 04/26/20 12:05 98.7 F 88 18 91/56 97 04/26/20 11:50 20 04/26/20 08:00 84 18 91/52 94 L 04/26/20 03:49 98.2 F 70 18 97/59 98 04/26/20 00:00 98 F 94 17 94/50 95 04/25/20 19:45 98.1 F 101 H 19 110/45 95 04/25/20 18:51 97 18 112/64 94 L 04/25/20 17:25 95 18 104/68 95 04/25/20 16:26 97 18 102/68 94 L 04/25/20 14:50 98.6 F 115 H 20 102/68 80 L Intake and Output 04/25/20 04/26/20 04/26/20 22:59 06:59 14:59 Output Total 1 Balance -1 Output: Urine 1 Other: # Voids 1 Weight 65.771 kg 64.9 kg 64.9 kg GENERAL EXAM: Alert, very pleasant, 69-year-old white female, oneil-looking, not in the recliner, on 3 L of oxygen her pulse ox is 97%, comfortable in no apparent distress. HEAD: Normocephalic/atraumatic. EYES: Normal reaction of pupils, equal size. Conjunctiva pink, sclera white. NOSE: Clear with pink turbinates. THROAT: No erythema or exudates. NECK: No masses, no JVD, no thyroid enlargement, no adenopathy. CHEST: No chest wall deformity. Symmetrical expansion. LUNGS: Equal air entry with no crackles, wheeze, rhonchi or dullness. CVS: Regular rate and rhythm, normal S1 and S2, no gallops, no murmurs, no rubs ABDOMEN: Soft, nontender. No hepatosplenomegaly, normal bowel sounds, no guarding or rigidity. EXTREMITIES: No clubbing, no edema, no cyanosis, 2+ pulses and upper and lower extremities. MUSCULOSKELETAL: Muscle strength and tone normal. SPINE: No scoliosis or deformity SKIN: No rashes CENTRAL NERVOUS SYSTEM: Alert and oriented -3. No focal deficits, tone is normal in all 4 extremities. PSYCHIATRIC: Alert and oriented -3. Appropriate affect. Intact judgment and insight. Results - Laboratory Findings CBC and BMP: 04/26/20 06:58 04/26/20 06:58 Abnormal lab findings: Abnormal Labs 04/25/20 04/25/20 04/25/20 15:28 15:28 15:28 WBC 12.9 H Hct 47.0 H RDW 15.7 H Plt Count Neutrophils # 11.2 H Lymphocytes # 0.7 L APTT Sodium 132 L Potassium 3.1 L Chloride 85 L Carbon Dioxide 33 H BUN 58 H Creatinine 1.46 H Calcium Magnesium Total Bilirubin 2.8 H AST 48 H ALT 36 H Troponin I 0.163 H* 04/25/20 04/25/20 04/25/20 19:12 23:24 23:24 WBC Hct RDW Plt Count Neutrophils # Lymphocytes # APTT 54.0 H Sodium Potassium Chloride Carbon Dioxide BUN Creatinine Calcium Magnesium Total Bilirubin AST ALT Troponin I 0.163 H* 0.186 H* 04/26/20 04/26/20 04/26/20 06:58 06:58 06:58 WBC Hct RDW 15.9 H Plt Count 122 L Neutrophils # 8.1 H Lymphocytes # 0.6 L APTT 44.4 H Sodium 133 L Potassium 2.3 L* Chloride 86 L Carbon Dioxide 37 H BUN 55 H Creatinine 1.46 H Calcium 8.2 L Magnesium Total Bilirubin AST ALT Troponin I 04/26/20 06:58 WBC Hct RDW Plt Count Neutrophils # Lymphocytes # APTT Sodium Potassium Chloride Carbon Dioxide BUN Creatinine Calcium Magnesium 1.4 L Total Bilirubin AST ALT Troponin I - Diagnostic Findings Chest x-ray: report reviewed, image reviewed Assessment and Plan Plan: Assessment: #1. Shortness of breath, acute on chronic, multifactorial, likely related to acute exacerbation of CHF with diastolic dysfunction, and possibility of left pneumonia not entirely excluded, chest x-ray showing new airspace opacity of the left lung base, and small right pleural effusion, on the background of coarsened interstitial fibrotic lung markings related to underlying history of IPF #2. Elevated troponins, patient denies any chest pain, possibly related to acute exacerbation of CHF, cardiology is following #3. Peripheral edema #4. History of IPF, previously trialed on Esbriet, could not tolerate related to GI side effects #5. Chronic hypoxic rest or a failure related to IPF #6. Recent history of sepsis related to E. coli UTI, leg infection, and stenotrophomonas pneumonia in the right lung, patient was treated with azithromycin and Rocephin, and was sent home on oral course of Ceftin, clinically was improving #7. Hypokalemia, likely related to diuretic therapy #8. Hypertension #9. Hyperlipidemia #10. GERD/reflux #11. Lifelong nonsmoker Plan: Send a sputum culture, this chest x-ray shows some improvement in aeration of the left lung base compared to yesterday pointing the possibility of CHF related airspace opacity in the left lung base. Continue with IV diuretics, we'll switch antibiotic coverage to ceftazidime based on her most recent sputum culture positive for stenotrophomonas maltophilia. Continue with maintenance dose steroids. Cardiology is following, patient is pretty close to her baseline in terms of her breathing. She has chronic dyspnea, denies any worsening, denies any chest pain. We'll continue to follow I performed a history & physical examination of the patient and discussed their management with my nurse practitioner, Angelia Najera. I reviewed the nurse practitioner's note and agree with the documented findings and plan of care. Lung sounds are positive for diminished breath sounds. The findings and the impression was discussed with the patient. I attest to the documentation by the nurse practitioner. Time with Patient: Greater than 30
[2020-04-26] MEDS ORDERED: AZITHROMYCIN 500 MG in SODIUM CHLORIDE 0.9% 250 ML IVPB SCH (18:00)
[2020-04-26] MEDS: IPRATROPIUM-ALBUTEROL 3 ML NEB INHALATION PRN (19:21)
[2020-04-26] MEDS: ASPIRIN 81 MG PO SCH (20:10)
[2020-04-26] MEDS: ATORVASTATIN 10 MG TAB PO SCH (20:10)
[2020-04-26] MEDS: HEPARIN SOD,PORK IN 0.45% NACL 25,000 UNIT in 0.45% NACL 1 250ML.BAG IV SCH (20:10)
--- NOTE | 2020-04-27 00:43 | P.PN ---
Subjective Progress Note Date: 04/26/20 Principal diagnosis: Left lower lung pneumonia worsening compared to be previous exam. Elevated troponin level. Likely demand mismatch. Possible non-ST elevated TX Acute on Chronic CHF with diastolic dysfunction. Patient is a 69-year-old female with a known history of hypertension, hyperlipidemia, pulmonary fibrosis, GERD and recent history of pneumonia with sputum cultures growing stenotrophomonas and Radha and also sepsis secondary to urinary tract infection. Patient was discharged home on 04/12/2020. Patient states that she has been feeling very well and was seen at Dr. Blankenship's office. Patient had lab work-up done. Patient was called today to come to the ER due to abdominal lab findings. Patient also had chest x-ray at doctor's office. Otherwise patient denied any complaints of chest pain or shortness of breath. Patient does have improved leg swelling compared to previous admission. Denied any complaints of chest pain. No fever no chills. No worsening shortness of breath. No headache or dizziness or lightheadedness. Patient says that she had a cough in the ER and was able to bring UP thick sputum which made her symptomatically better. Laboratory data showed WBC 12.9, hemoglobin 15.1 platelets 158 Sodium 132, potassium 3.1, chloride 85 and bicarb is 33 BUN 58 and creatinine 1.46 Last creatinine at discharge on 04/12/2020 was1.27 Troponin 0 0.163, 0.163 and 0.186 proBNP 02953 Albumin 3.9 Chest x-ray showed increased airspace opacity of the left lung base versus 04/09/2020. Findings may represent atelectasis versus developing consolidation. Unchanged right small pleural effusion. Chronic interstitial pulmonary fibrosis. 04/26/2020 Patient is currently sitting in the chair. Awake alert oriented x3. Shortness of breath did improve compared to yesterday. Patient is being continued on IV Lasix 40 mg twice daily. Currently on antibiotics in the form of ceftriaxone and azithromycin. Patient has been afebrile. Cough with whitish to clear sputum production. Patient currently complains of chest pain. Laboratory data showed WBC trending down to 9.6. Hemoglobin 14.4 and platelets 122 Sodium 133 and potassium 2.3 BUN 55 and creatinine 1.46 potassium is being replaced. Current medications reviewed. Objective - Vital Signs Vital signs: Vital Signs Temp 98.2 F 04/26/20 03:49 Pulse 84 04/26/20 08:00 Resp 18 04/26/20 08:00 BP 91/52 04/26/20 08:00 Pulse Ox 94 L 04/26/20 08:00 Intake & Output 04/25/20 04/26/20 04/26/20 18:59 06:59 18:59 Weight 65.771 kg 64.9 kg 64.9 kg Other: # Voids 1 - Exam PHYSICAL EXAMINATION: Patient is lying in the bed comfortably, no acute distress, awake alert and oriented.. HEENT: Normocephalic. Neck is supple. Pupils reactive. Nostrils clear. Oral cavity is moist. Ears reveal no drainage. Neck reveals no JVD, carotid bruits, or thyromegaly. CHEST EXAMINATION: Trachea is central. Symmetrical expansion. Diffuse fine crackles and coarse breath sounds in the left lower lobe. No wheezing.. CARDIAC: Normal S1, S2 with no gallops. No murmurs ABDOMEN: Soft. Bowel sounds normal. No organomegaly. No abdominal bruits. Extremities: 1+ bilateral pedal edema. No clubbing or cyanosis Neurologically awake, alert, oriented x3 with well-coordinated movements. No focal deficits noted Skin: No rash or skin lesions. Psychiatric: Coperative. Nonsuicidal Musculoskeletal: No joint swelling or deformity. Normal range of motion. - Labs CBC & Chem 7: 04/26/20 06:58 04/26/20 06:58 Labs: Abnormal Lab Results - Last 24 Hours (Table) 04/25/20 04/25/20 04/25/20 Range/Units 15:28 15:28 15:28 WBC 12.9 H (3.8-10.6) k/uL Hct 47.0 H (34.0-46.0) % RDW 15.7 H (11.5-15.5) % Plt Count (150-450) k/uL Neutrophils # 11.2 H (1.3-7.7) k/uL Lymphocytes # 0.7 L (1.0-4.8) k/uL APTT (22.0-30.0) sec Sodium 132 L (137-145) mmol/L Potassium 3.1 L (3.5-5.1) mmol/L Chloride 85 L (98-107) mmol/L Carbon Dioxide 33 H (22-30) mmol/L BUN 58 H (7-17) mg/dL Creatinine 1.46 H (0.52-1.04) mg/dL Calcium (8.4-10.2) mg/dL Magnesium (1.6-2.3) mg/dL Total Bilirubin 2.8 H (0.2-1.3) mg/dL AST 48 H (14-36) U/L ALT 36 H (4-34) U/L Troponin I 0.163 H* (0.000-0.034) ng/mL 04/25/20 04/25/20 04/25/20 Range/Units 19:12 23:24 23:24 WBC (3.8-10.6) k/uL Hct (34.0-46.0) % RDW (11.5-15.5) % Plt Count (150-450) k/uL Neutrophils # (1.3-7.7) k/uL Lymphocytes # (1.0-4.8) k/uL APTT 54.0 H (22.0-30.0) sec Sodium (137-145) mmol/L Potassium (3.5-5.1) mmol/L Chloride (98-107) mmol/L Carbon Dioxide (22-30) mmol/L BUN (7-17) mg/dL Creatinine (0.52-1.04) mg/dL Calcium (8.4-10.2) mg/dL Magnesium (1.6-2.3) mg/dL Total Bilirubin (0.2-1.3) mg/dL AST (14-36) U/L ALT (4-34) U/L Troponin I 0.163 H* 0.186 H* (0.000-0.034) ng/mL 04/26/20 04/26/20 04/26/20 Range/Units 06:58 06:58 06:58 WBC (3.8-10.6) k/uL Hct (34.0-46.0) % RDW 15.9 H (11.5-15.5) % Plt Count 122 L (150-450) k/uL Neutrophils # 8.1 H (1.3-7.7) k/uL Lymphocytes # 0.6 L (1.0-4.8) k/uL APTT 44.4 H (22.0-30.0) sec Sodium 133 L (137-145) mmol/L Potassium 2.3 L* (3.5-5.1) mmol/L Chloride 86 L (98-107) mmol/L Carbon Dioxide 37 H (22-30) mmol/L BUN 55 H (7-17) mg/dL Creatinine 1.46 H (0.52-1.04) mg/dL Calcium 8.2 L (8.4-10.2) mg/dL Magnesium (1.6-2.3) mg/dL Total Bilirubin (0.2-1.3) mg/dL AST (14-36) U/L ALT (4-34) U/L Troponin I (0.000-0.034) ng/mL 04/26/20 Range/Units 06:58 WBC (3.8-10.6) k/uL Hct (34.0-46.0) % RDW (11.5-15.5) % Plt Count (150-450) k/uL Neutrophils # (1.3-7.7) k/uL Lymphocytes # (1.0-4.8) k/uL APTT (22.0-30.0) sec Sodium (137-145) mmol/L Potassium (3.5-5.1) mmol/L Chloride (98-107) mmol/L Carbon Dioxide (22-30) mmol/L BUN (7-17) mg/dL Creatinine (0.52-1.04) mg/dL Calcium (8.4-10.2) mg/dL Magnesium 1.4 L (1.6-2.3) mg/dL Total Bilirubin (0.2-1.3) mg/dL AST (14-36) U/L ALT (4-34) U/L Troponin I (0.000-0.034) ng/mL Assessment and Plan Assessment: Left lower lung pneumonia worsening compared to be previous exam. Elevated troponin level. Likely demand mismatch. Possible non-ST elevated TX Acute on Chronic CHF with diastolic dysfunction. Severe pulmonary hypertension Recent sepsis secondary pneumonia and UTI/E. coli Acute kidney injury most likely prerenal possibly ATN. Severe hypokalemia 3.1 Chronic hypoxic respiratory failure secondary to pulmonary fibrosis Hypertension Hyperlipidemia Idiopathic pulmonary fibrosis DVT prophylaxis Plan: Have patient be continued on antibiotics in the form of ceftriaxone azithromycin. Sputum cultures ordered. Continue with aspirin and statins . Patient was seen by cardiology and recommended to discontinue heparin and continue with medical management at this time. Unlikely acute TX. 2D echocardiogram was ordered. Pulmonary is following. Replace electrolytes and follow-up CBC and BMP tomorrow. Prognosis guarded with continued problems and comorbid conditions. Time with Patient: Greater than 30
[2020-04-27] MEDS: POTASSIUM CHLORIDE ER 20 MEQ TAB.ER PO SCH ×4 (03:03→11:21)
[2020-04-27] MEDS: FUROSEMIDE 10 MG/ML 2 ML VIAL IV SCH ×2 (06:28→18:01)
[2020-04-27] MEDS: PANTOPRAZOLE 40 MG TABLET PO SCH (06:28)
[2020-04-27] MEDS: MIDODRINE 5 MG TAB PO SCH ×3 (06:28→18:01)
[2020-04-27 07:04] LABS: Calcium 8.4 mg/dL (8.4-10.2); Magnesium 2.4 mg/dL (1.6-2.3); Potassium 3.4 mmol/L (3.5-5.1)
[2020-04-27] MEDS: IPRATROPIUM-ALBUTEROL 3 ML NEB INHALATION PRN ×3 (07:40→19:19)
[2020-04-27] MEDS: predniSONE 10 MG TAB PO SCH (09:44)
[2020-04-27] MEDS: MONTELUKAST 10 MG TAB PO SCH (09:44)
[2020-04-27] MEDS: CHOLECALCIFEROL 1,000 UNIT TAB PO SCH (09:44)
[2020-04-27] MEDS ORDERED: HEPARIN SODIUM,PORCINE 5,000 UNIT/ML 1 ML VIAL IV STA ×2 (09:56→10:00)
[2020-04-27] MEDS ORDERED: HEPARIN SODIUM,PORCINE 5,000 UNIT/ML 1 ML VIAL IV PRN (09:59)
--- NOTE | 2020-04-27 12:47 | P.PN ---
Subjective Progress Note Date: 04/27/20 This is a pleasant 69-year-old female patient who follows with Dr. Myles. She has a history of hyperlipidemia, hypertension, GERD, chronic kidney disease and pulmonary fibrosis. She had a recent admission here for pneumonia, pleural effusion and acute kidney injury. At that time her NT proBNP was elevated at 34,300. She was diuresed. Echocardiogram showed normal LV systolic function with severely enlarged RV, moderate to severe TR, severe pulmonary hypertension, and moderate pulmonary regurgitation. She was apparently seen in follow-up at her primary care physician's office 2 days ago and had labs drawn. She was also seen by Dr. Farias and yesterday who did a chest x-ray and was prescribing more antibiotics if he felt her pneumonia had not resolved. She was then called by her primary care physician and recommended to come to the emergency department due to abnormal labs. Labs from 04/24/2020 showed white blood cell, 11,500, sodium 134, potassium 2.9, BUN 59, creatinine 1.6. Chest x-ray on arrival showed increased air space opacity of the left lung base versus 04/09/2020 comparison, findings may represent atelectasis versus developing consolidation, unchanged small right pleural effusion and chronic interstitial pulmonary fibrosis. EKG showed sinus tachycardia with PVCs and T-wave abnormalities in the inferior leads which appear to be similar compared to EKG done during last admission. Labs on admission showed white blood cell count 12,900, sodium 132, potassium 3.1, BUN 58, creatinine 1.46 and NT proBNP of 17,700. We were asked to see the patient in consultation due to abnormal troponins which were 0.163, 0.163 and 0.186. Patient has no complaints of chest discomfort. Overall she felt that she was actually beginning to feel better. Her breathing was improving, energy and strength were improving and her appetite was improving. SpO2 was documented at 80% on 2 L on presentation. Labs this morning showed white blood cell count 9600, sodium 133, potassium 2.3, BUN 55 and creatinine 1.46. Patient was seen and examined sitting up in a chair. She states she does sleep in a recliner at home as she does experience some orthopnea. She continues to have some lower extremity edema but this is improving. She has some wounds on her left foot and the left foot and ankle are wrapped. 04/27/2020 The patient was seen and examined sitting up in a chair. She is overall feeling fairly well today. She feels her breathing is stable on most to her baseline. Her edema is improving. She has been up in a chair and pivoting to bedside commode without much difficulty. She feels she is getting stronger. Her labs show some improvement with a potassium of 3.4, BUN 52 and creatinine 1.26. He needs them was placed and came back this morning at 2.4. What pressure remains low. Objective - Vital Signs Vital signs: Vital Signs Temp 98.1 F 04/27/20 08:00 Pulse 90 04/27/20 08:00 Resp 20 04/27/20 08:00 BP 86/54 04/27/20 08:00 Pulse Ox 94 L 04/27/20 08:00 Intake & Output 04/26/20 04/27/20 04/27/20 18:59 06:59 18:59 Intake Total 975 210.612 107.476 Output Total 1 Balance 974 210.612 107.476 Weight 64.9 kg 61.1 kg Intake: Intake, IV Titration 575 210.612 107.476 Amount Ceftazidime Syst. 1 gm In 50 Sodium Chloride 0.9% 50 ml @ 100 mls/hr IVPB ONCE ONE Rx#:[id number] Heparin Sod,Pork in 0.45% 25 210.612 107.476 NaCl 25,000 unit In 0.45 % NaCl 1 250ml.bag @ 12 UNITS/KG/HR 7.893 mls/hr IV .Q24H [facility] Rx#: [id number] Piperacillin-Tazobactam 3 100 .375 gm In Sodium Chloride 0.9% 100 ml @ 200 mls/hr IVPB ONCE STA Rx#:[id number] Potassium Chloride 10 meq 400 In Water For Injection 1 100ml.bag @ 100 mls/hr IVPB Q1HR [facility] Rx#: [id number] Oral 400 Output: Urine 1 Other: Voiding Method Toilet Toilet # Voids 1 - Exam PHYSICAL EXAMINATION: HEENT: Head is atraumatic, normocephalic. Pupils equal, round. Neck is supple. There is no elevated jugular venous pressure. HEART EXAMINATION: Heart sounds regular, S1 and S2 normal. No murmur or gallop heard. CHEST EXAMINATION: Lungs reveal diminished air entry with scattered dry crackles. No chest wall tenderness is noted on palpation or with deep breathing. ABDOMEN: Soft, nontender. Bowel sounds are heard. No organomegaly noted. EXTREMITIES: 1+ peripheral pulses with evidence of mild peripheral edema that continues to improve. NEUROLOGIC patient is awake, alert and oriented x3. . - Labs CBC & Chem 7: 04/26/20 06:58 04/27/20 06:17 Labs: Abnormal Lab Results - Last 24 Hours (Table) 04/26/20 04/27/20 04/27/20 Range/Units 06:58 02:07 06:17 APTT 38.9 H (22.0-30.0) sec Sodium (137-145) mmol/L Potassium 3.0 L (3.5-5.1) mmol/L Chloride (98-107) mmol/L Carbon Dioxide (22-30) mmol/L BUN (7-17) mg/dL Creatinine (0.52-1.04) mg/dL Magnesium (1.6-2.3) mg/dL Procalcitonin 0.92 H (0.02-0.09) ng/mL 04/27/20 Range/Units 06:17 APTT (22.0-30.0) sec Sodium 131 L (137-145) mmol/L Potassium 3.4 L (3.5-5.1) mmol/L Chloride 88 L (98-107) mmol/L Carbon Dioxide 33 H (22-30) mmol/L BUN 52 H (7-17) mg/dL Creatinine 1.26 H (0.52-1.04) mg/dL Magnesium 2.4 H (1.6-2.3) mg/dL Procalcitonin (0.02-0.09) ng/mL Microbiology - Last 24 Hours (Table) 04/26/20 19:24 Gram Stain - Preliminary Sputum Sputum Culture - Preliminary 04/25/20 15:28 Blood Culture - Preliminary Blood No Growth after 24 hours Assessment and Plan Assessment: #1 abnormal troponins, likely secondary to hypoxemia #2 chronic diastolic heart failure with improving NT proBNP, improving edema and improving symptoms of dyspnea #3 severe pulmonary fibrosis #4 pneumonia #5 severe pulmonary hypertension #6 hypokalemia #7 chronic kidney disease #8 small pleural effusion Plan: From cardiology perspective, abnormal troponin appears to be secondary to type II DE due to hypoxemia. We will discontinue IV heparin. No further cardiac workup at this time. Continue current medications. Patient is okay for discharge from our standpoint. She'll follow-up in the office with Dr. Adan upon discharge. TRAINING DIRECTOR note has been reviewed, I agree with a documented findings and plan of care. Patient was seen and examined.
--- NOTE | 2020-04-27 14:54 | P.PN ---
Subjective Progress Note Date: 04/27/20 Principal diagnosis: Right lower lobe pneumonia, shortness of breath 69-year-old white female patient with history of IPF on home oxygen, trialed on Esbriet which was discontinued related to GI symptoms, hypertension, hyperlipidemia, GERD/reflux, who had a recent admission in March, for acute exacerbation of CHF with diastolic dysfunction, right lower lobe pneumonia, urinary tract infection related to E. coli, acute kidney injury. Patient also had left leg wound with cultures positive for E. coli, her sputum culture was positive for Stenotrophomonas maltophilia, which was not known until after discharge, and patient was discharged home on oral Ceftin. Patient was seen by Dr. Camara in the office on 04/25/2020 for hospital follow-up. Clinically she was feeling better, follow-up chest x-ray in the office showed some residual infiltration in the right lower lobe and small pleural effusion. Patient presented to the emergency department in the afternoon on 04/25/2020 for abnormal lab results. Her proBNP was significantly elevated at 17,700. Potassium was 2.9, BUN was 59, creatinine was 1.6. No worsening dyspnea, patient has chronic shortness of breath related to history of IPF, she did note a mildly increased swelling, she is on home dose Lasix of 40 mg twice daily, she was given 7 day course of oral Levaquin by Dr. Camara during yesterday's outpatient visit. No complaints of chest pain. Chest x-ray was complaints showing increased airspace opacity of the left lung base, that could represent atelectasis versus developing consolidation, and unchanged small right pleural effusion. Labs showed a white blood cell, 12.9, hemoglobin 15.2, sodium was 132, potassium is 3.1, chloride was 85, CO2 of 33, BUN is 58, creatinine was 1.46, troponins were elevated to 0.163, 0.163 and 0.186, proBNP was 17,700. Patient was afebrile, she is on her usual 2 L of oxygen, her pulse ox is 94-98%, hemodynamically she is stable. She is short of breath with exertion, but this is chronic for her. Antibiotics were started in the form of azithromycin and Rocephin, then switched to Zosyn, however recent review of her sputum culture showed Stenotrophomonas maltophilia with sensitivity to ceftazidime, and Bactrim, and intermediate sensitivity to Levaquin. On 04/27/2020 patient seen in follow-up on selective care unit, she is sitting up in the chair, in no acute distress, she is on 2 L of oxygen her pulse ox is 94%, hemodynamically stable, no worsening dyspnea, she is at her baseline in terms of her breathing, she is afebrile. Antibiotic coverage in the form of Fortaz, for recent history of stenotrophomonas pneumonia. No acute issues overnight, altered mentation, no, no chest pain. No new chest x-ray today. Labs have been reviewed, showing sodium of 131, potassium is 3.4, chloride is 88, CO2 33, BUN of 52, creatinine of 1.26. Pro-calcitonin did come back elevated at 0.9 suggesting presence of bacterial infection although this could be elevated somewhat related to her impaired renal function. Objective - Vital Signs Vital signs: Vital Signs Temp 98.1 F 04/27/20 08:00 Pulse 90 04/27/20 08:00 Resp 20 04/27/20 08:00 BP 86/54 04/27/20 08:00 Pulse Ox 94 L 04/27/20 08:00 Intake & Output 04/26/20 04/27/20 04/27/20 18:59 06:59 18:59 Intake Total 975 210.612 107.476 Output Total 1 Balance 974 210.612 107.476 Weight 64.9 kg 61.1 kg Intake: Intake, IV Titration 575 210.612 107.476 Amount Ceftazidime Syst. 1 gm In 50 Sodium Chloride 0.9% 50 ml @ 100 mls/hr IVPB ONCE ONE Rx#:[id number] Heparin Sod,Pork in 0.45% 25 210.612 107.476 NaCl 25,000 unit In 0.45 % NaCl 1 250ml.bag @ 12 UNITS/KG/HR 7.893 mls/hr IV .Q24H [facility] Rx#: [id number] Piperacillin-Tazobactam 3 100 .375 gm In Sodium Chloride 0.9% 100 ml @ 200 mls/hr IVPB ONCE STA Rx#:[id number] Potassium Chloride 10 meq 400 In Water For Injection 1 100ml.bag @ 100 mls/hr IVPB Q1HR [facility] Rx#: [id number] Oral 400 Output: Urine 1 Other: Voiding Method Toilet Toilet # Voids 1 - Exam GENERAL EXAM: Alert, very pleasant, 69-year-old white female, oneil-looking, not in the recliner, on 2 L of oxygen her pulse ox is 94%, comfortable in no apparent distress. HEAD: Normocephalic/atraumatic. EYES: Normal reaction of pupils, equal size. Conjunctiva pink, sclera white. NOSE: Clear with pink turbinates. THROAT: No erythema or exudates. NECK: No masses, no JVD, no thyroid enlargement, no adenopathy. CHEST: No chest wall deformity. Symmetrical expansion. LUNGS: Equal air entry with no crackles, wheeze, rhonchi or dullness. CVS: Regular rate and rhythm, normal S1 and S2, no gallops, no murmurs, no rubs ABDOMEN: Soft, nontender. No hepatosplenomegaly, normal bowel sounds, no guarding or rigidity. EXTREMITIES: No clubbing, no edema, no cyanosis, 2+ pulses and upper and lower extremities. MUSCULOSKELETAL: Muscle strength and tone normal. SPINE: No scoliosis or deformity SKIN: No rashes CENTRAL NERVOUS SYSTEM: Alert and oriented -3. No focal deficits, tone is normal in all 4 extremities. PSYCHIATRIC: Alert and oriented -3. Appropriate affect. Intact judgment and insight. - Labs CBC & Chem 7: 04/26/20 06:58 04/27/20 06:17 Labs: Abnormal Lab Results - Last 24 Hours (Table) 04/26/20 04/27/20 04/27/20 Range/Units 06:58 02:07 06:17 APTT 38.9 H (22.0-30.0) sec Sodium (137-145) mmol/L Potassium 3.0 L (3.5-5.1) mmol/L Chloride (98-107) mmol/L Carbon Dioxide (22-30) mmol/L BUN (7-17) mg/dL Creatinine (0.52-1.04) mg/dL Magnesium (1.6-2.3) mg/dL Procalcitonin 0.92 H (0.02-0.09) ng/mL 04/27/20 Range/Units 06:17 APTT (22.0-30.0) sec Sodium 131 L (137-145) mmol/L Potassium 3.4 L (3.5-5.1) mmol/L Chloride 88 L (98-107) mmol/L Carbon Dioxide 33 H (22-30) mmol/L BUN 52 H (7-17) mg/dL Creatinine 1.26 H (0.52-1.04) mg/dL Magnesium 2.4 H (1.6-2.3) mg/dL Procalcitonin (0.02-0.09) ng/mL Microbiology - Last 24 Hours (Table) 04/26/20 19:24 Gram Stain - Preliminary Sputum Sputum Culture - Preliminary 04/25/20 15:28 Blood Culture - Preliminary Blood No Growth after 24 hours Assessment and Plan Plan: Assessment: #1. Shortness of breath, acute on chronic, multifactorial, likely related to acute exacerbation of CHF with diastolic dysfunction, and possibility of left pneumonia not entirely excluded, chest x-ray showing new airspace opacity of the left lung base, and small right pleural effusion, on the background of coarsened interstitial fibrotic lung markings related to underlying history of IPF #2. Elevated troponins, patient denies any chest pain, possibly related to acute exacerbation of CHF, cardiology is following #3. Peripheral edema #4. History of IPF, previously trialed on Esbriet, could not tolerate related to GI side effects #5. Chronic hypoxic rest or a failure related to IPF #6. Recent history of sepsis related to E. coli UTI, leg infection, and stenotrophomonas pneumonia in the right lung, patient was treated with azit hromycin and Rocephin, and was sent home on oral course of Ceftin, clinically was improving #7. Hypokalemia, likely related to diuretic therapy #8. Hypertension #9. Hyperlipidemia #10. GERD/reflux #11. Lifelong nonsmoker Plan: Patient is doing well, no worsening dyspnea, she is on 2 L of oxygen, and this is what she wears at home, no worsening hypoxia, no chest pain, she is afebrile, continue with Fortaz for antibiotic coverage, diuretics per cardiology. From pulmonary perspective patient is stable, improving, pro-calcitonin level was noted suggesting possibility of bacterial pneumonia, patient is recovering from recent stenotrophomonas pneumonia, increase activity as tolerated, she can be considered for discharge home in 24 hours if continues to improve, follow-up chest x-ray in the morning I performed a history & physical examination of the patient and discussed their management with my nurse practitioner, Angelia Najera. I reviewed the nurse practitioner's note and agree with the documented findings and plan of care. Lung sounds are positive for diminished breath sounds. The findings and the impression was discussed with the patient. I attest to the documentation by the nurse practitioner. Time with Patient: Less than 30
[2020-04-27] MEDS: HEPARIN SOD,PORK IN 0.45% NACL 25,000 UNIT in 0.45% NACL 1 250ML.BAG IV SCH (17:58)
[2020-04-27] MEDS: ASPIRIN 81 MG PO SCH (20:56)
[2020-04-27] MEDS: ATORVASTATIN 10 MG TAB PO SCH (20:56)
[2020-04-28] MEDS: FUROSEMIDE 10 MG/ML 2 ML VIAL IV SCH ×2 (06:15→17:19)
[2020-04-28] MEDS: PANTOPRAZOLE 40 MG TABLET PO SCH (06:16)
[2020-04-28] MEDS: MIDODRINE 5 MG TAB PO SCH ×3 (06:16→17:16)
[2020-04-28 07:03] LABS: Basophils % (A) 0 %; Eosinophils # (A) 0.1 k/uL (0-0.7); Eosinophils % (A) 1 %; HCT 43.3 % (34.0-46.0); HGB 13.7 gm/dL (11.4-16.0); Lymphocytes # (A) 0.7 k/uL (1.0-4.8); Lymphocytes % (A) 8 %; MCH 31.4 pg (25.0-35.0); MCHC 31.6 g/dL (31.0-37.0); MCV 99.4 fL (80.0-100.0); Macrocytosis Slight; Mean Platelet Volume 8.9; Monocytes # (A) 0.5 k/uL (0-1.0); Monocytes % (A) 6 %; Neutrophils # (A) 7.4 k/uL (1.3-7.7); Neutrophils % (A) 84 %; Platelet Count 170 k/uL (150-450); RBC 4.36 m/uL (3.80-5.40); RDW 15.8 % (11.5-15.5); WBC 8.9 k/uL (3.8-10.6)
--- NOTE | 2020-04-28 07:11 | XR ---
EXAMINATION TYPE: XR chest 2V DATE OF EXAM: 04/28/2020 COMPARISON: Chest x-ray 2 days ago and older studies. CT chest November 14, 2019 HISTORY: Shortness of breath TECHNIQUE: Frontal and lateral views of the chest are obtained. FINDINGS: There is background advanced pulmonary fibrotic changes greatest in the periphery redemons trated with persistent right basilar consolidation and small right pleural effusion. The cardiac yvette houette size remains within normal limits. The osseous structures are intact. IMPRESSION: Background of advanced pulmonary fibrosis with small right pleural effusion and right ba silar acute infiltrate and/or atelectasis are all redemonstrated. No significant change from most rec ent x-ray.
[2020-04-28 07:16] LABS: Calcium 8.5 mg/dL (8.4-10.2); Potassium 4.7 mmol/L (3.5-5.1)
[2020-04-28] MEDS: MONTELUKAST 10 MG TAB PO SCH (09:11)
[2020-04-28] MEDS: predniSONE 10 MG TAB PO SCH (09:12)
[2020-04-28] MEDS: CHOLECALCIFEROL 1,000 UNIT TAB PO SCH (09:12)
--- NOTE | 2020-04-28 12:29 | P.PN ---
Subjective Progress Note Date: 04/28/20 This is a pleasant 69-year-old female patient who follows with Dr. Myles. She has a history of hyperlipidemia, hypertension, GERD, chronic kidney disease and pulmonary fibrosis. She had a recent admission here for pneumonia, pleural effusion and acute kidney injury. At that time her NT proBNP was elevated at 34,300. She was diuresed. Echocardiogram showed normal LV systolic function with severely enlarged RV, moderate to severe TR, severe pulmonary hypertension, and moderate pulmonary regurgitation. She was apparently seen in follow-up at her primary care physician's office 2 days ago and had labs drawn. She was also seen by Dr. Farias and yesterday who did a chest x-ray and was prescribing more antibiotics if he felt her pneumonia had not resolved. She was then called by her primary care physician and recommended to come to the emergency department due to abnormal labs. Labs from 04/24/2020 showed white blood cell, 11,500, sodium 134, potassium 2.9, BUN 59, creatinine 1.6. Chest x-ray on arrival showed increased air space opacity of the left lung base versus 04/09/2020 comparison, findings may represent atelectasis versus developing consolidation, unchanged small right pleural effusion and chronic interstitial pulmonary fibrosis. EKG showed sinus tachycardia with PVCs and T-wave abnormalities in the inferior leads which appear to be similar compared to EKG done during last admission. Labs on admission showed white blood cell count 12,900, sodium 132, potassium 3.1, BUN 58, creatinine 1.46 and NT proBNP of 17,700. We were asked to see the patient in consultation due to abnormal troponins which were 0.163, 0.163 and 0.186. Patient has no complaints of chest discomfort. Overall she felt that she was actually beginning to feel better. Her breathing was improving, energy and strength were improving and her appetite was improving. SpO2 was documented at 80% on 2 L on presentation. Labs this morning showed white blood cell count 9600, sodium 133, potassium 2.3, BUN 55 and creatinine 1.46. Patient was seen and examined sitting up in a chair. She states she does sleep in a recliner at home as she does experience some orthopnea. She continues to have some lower extremity edema but this is improving. She has some wounds on her left foot and the left foot and ankle are wrapped. 04/27/2020 The patient was seen and examined sitting up in a chair. She is overall feeling fairly well today. She feels her breathing is stable on most to her baseline. Her edema is improving. She has been up in a chair and pivoting to bedside commode without much difficulty. She feels she is getting stronger. Her labs show some improvement with a potassium of 3.4, BUN 52 and creatinine 1.26. He needs them was placed and came back this morning at 2.4. What pressure remains low. 04/28/2020 the patient was seen and examined this morning sitting up in a chair. She overall feels fairly well. She feels her breathing is almost back to baseline. She continues to have lower extremity edema but feels is improving.labs today showed potassium improved to 4.7, BUN 52 and creatinine 1.02.she continues on aspirin 81 mg daily, atorvastatin 10 mg daily, Lasix 20 mg IV push every 12 hours, Midodrine, Protonix, Singulair and prednisone. Objective - Vital Signs Vital signs: Vital Signs Temp 97.5 F L 04/28/20 11:43 Pulse 91 04/28/20 11:43 Resp 20 04/28/20 11:43 BP 100/63 04/28/20 11:43 Pulse Ox 95 04/28/20 11:43 Intake & Output 04/27/20 04/28/20 04/28/20 18:59 06:59 18:59 Intake Total 107.476 60 Output Total 2 530 Balance 105.476 -530 60 Weight 62.5 kg Intake: Intake, IV Titration 107.476 Amount Heparin Sod,Pork in 0.45% 107.476 NaCl 25,000 unit In 0.45 % NaCl 1 250ml.bag @ 12 UNITS/KG/HR 7.893 mls/hr IV .Q24H [facility] Rx#: [id number] Oral 60 Output: Urine 2 530 Other: Voiding Method Toilet Bedside Commode Bedside Commode # Voids 1 2 2 - Exam PHYSICAL EXAMINATION: HEENT: Head is atraumatic, normocephalic. Pupils equal, round. Neck is supple. There is no elevated jugular venous pressure. HEART EXAMINATION: Heart sounds regular, S1 and S2 normal. No murmur or gallop heard. CHEST EXAMINATION: Lungs reveal diminished air entry with scattered dry crackles. No chest wall tenderness is noted on palpation or with deep breathing. ABDOMEN: Soft, nontender. Bowel sounds are heard. No organomegaly noted. EXTREMITIES: 1+ peripheral pulses with evidence of mild peripheral edema that continues to improve. NEUROLOGIC patient is awake, alert and oriented x3. . - Labs CBC & Chem 7: 04/28/20 06:28 08 06:28 Labs: Abnormal Lab Results - Last 24 Hours (Table) 04/28/20 04/28/20 Range/Units 06:28 06:28 RDW 15.8 H (11.5-15.5) % Lymphocytes # 0.7 L (1.0-4.8) k/uL Sodium 133 L (137-145) mmol/L Chloride 90 L (98-107) mmol/L Carbon Dioxide 35 H (22-30) mmol/L BUN 52 H (7-17) mg/dL Microbiology - Last 24 Hours (Table) 04/25/20 15:28 Blood Culture - Preliminary Blood No Growth after 48 hours Assessment and Plan Assessment: #1 abnormal troponins, likely secondary to hypoxemia #2 chronic diastolic heart failure with improving NT proBNP, improving edema and improving symptoms of dyspnea #3 severe pulmonary fibrosis #4 pneumonia #5 severe pulmonary hypertension #6 hypokalemia, improved #7 chronic kidney disease #8 small pleural effusion Plan: From cardiology perspective, abnormal troponin appears to be secondary to type II NE due to hypoxemia. No further cardiac workup at this time. Continue current medications. Patient is okay for discharge from our standpoint. She'll follow-up in the office with Dr. Adan upon discharge. TRANSFER CAR OPERATOR note has been reviewed, I agree with a documented findings and plan of care. Patient was seen and examined.
--- NOTE | 2020-04-28 14:37 | P.PN ---
Subjective Progress Note Date: 04/28/20 Principal diagnosis: Right lower lobe pneumonia 69-year-old white female patient with history of IPF on home oxygen, trialed on Esbriet which was discontinued related to GI symptoms, hypertension, hyperlipidemia, GERD/reflux, who had a recent admission in March, for acute exacerbation of CHF with diastolic dysfunction, right lower lobe pneumonia, urinary tract infection related to E. coli, acute kidney injury. Patient also had left leg wound with cultures positive for E. coli, her sputum culture was positive for Stenotrophomonas maltophilia, which was not known until after discharge, and patient was discharged home on oral Ceftin. Patient was seen by Dr. Camara in the office on 04/25/2020 for hospital follow-up. Clinically she was feeling better, follow-up chest x-ray in the office showed some residual infiltration in the right lower lobe and small pleural effusion. Patient presented to the emergency department in the afternoon on 04/25/2020 for abnormal lab results. Her proBNP was significantly elevated at 17,700. Potassium was 2.9, BUN was 59, creatinine was 1.6. No worsening dyspnea, patient has chronic shortness of breath related to history of IPF, she did note a mildly increased swelling, she is on home dose Lasix of 40 mg twice daily, she was given 7 day course of oral Levaquin by Dr. Camara during yesterday's outpatient visit. No complaints of chest pain. Chest x-ray was complaints showing increased airspace opacity of the left lung base, that could represent atelectasis versus developing consolidation, and unchanged small right pleural effusion. Labs showed a white blood cell, 12.9, hemoglobin 15.2, sodium was 132, potassium is 3.1, chloride was 85, CO2 of 33, BUN is 58, creatinine was 1.46, troponins were elevated to 0.163, 0.163 and 0.186, proBNP was 17,700. Patient was afebrile, she is on her usual 2 L of oxygen, her pulse ox is 94-98%, hemodynamically she is stable. She is short of breath with exertion, but this i s chronic for her. Antibiotics were started in the form of azithromycin and Rocephin, then switched to Zosyn, however recent review of her sputum culture showed Stenotrophomonas maltophilia with sensitivity to ceftazidime, and Bactrim, and intermediate sensitivity to Levaquin. On 04/27/2020 patient seen in follow-up on selective care unit, she is sitting up in the chair, in no acute distress, she is on 2 L of oxygen her pulse ox is 94%, hemodynamically stable, no worsening dyspnea, she is at her baseline in terms of her breathing, she is afebrile. Antibiotic coverage in the form of Fortaz, for recent history of stenotrophomonas pneumonia. No acute issues overnight, altered mentation, no, no chest pain. No new chest x-ray today. Labs have been reviewed, showing sodium of 131, potassium is 3.4, chloride is 88, CO2 33, BUN of 52, creatinine of 1.26. Pro-calcitonin did come back elev ated at 0.9 suggesting presence of bacterial infection although this could be elevated somewhat related to her impaired renal function. The patient is seen today 04/28/2020 in follow-up on the selective care unit. She is currently sitting up in a chair at the bedside. Awake and alert in no acute distress. Her breathing is nearly back to her baseline. She is maintaining O2 saturations in the mid 90s on 2 L/m per nasal cannula. She's been afebrile. Sputum culture with gram-negative bacilli. Blood culture reveals no growth. White count 8.9. Hemoglobin 13.7. Sodium 133. Potassium 4.7. Creatinine 1.02. She remains on bronchodilators, antibiotics in the form of ceftazidime. She is continued on IV diuretics. Objective - Vital Signs Vital signs: Vital Signs Temp 97.5 F L 04/28/20 11:43 Pulse 91 04/28/20 11:43 Resp 20 04/28/20 11:43 BP 100/63 04/28/20 11:43 Pulse Ox 95 04/28/20 11:43 Intake & Output 04/27/20 04/28/20 04/28/20 18:59 06:59 18:59 Intake Total 107.476 60 Output Total 2 530 Balance 105.476 -530 60 Weight 62.5 kg Intake: Intake, IV Titration 107.476 Amount Heparin Sod,Pork in 0.45% 107.476 NaCl 25,000 unit In 0.45 % NaCl 1 250ml.bag @ 12 UNITS/KG/HR 7.893 mls/hr IV .Q24H [facility] Rx#: [id number] Oral 60 Output: Urine 2 530 Other: Voiding Method Toilet Bedside Commode Bedside Commode # Voids 1 2 2 - Exam GENERAL EXAM: Alert, very pleasant, thin, 69-year-old female patient, on 2 L of oxygen her pulse ox is 95%, comfortable in no apparent distress. HEAD: Normocephalic/atraumatic. EYES: Normal reaction of pupils, equal size. Conjunctiva pink, sclera white. NOSE: Clear with pink turbinates. THROAT: No erythema or exudates. NECK: No masses, no JVD, no thyroid enlargement, no adenopathy. CHEST: No chest wall deformity. Symmetrical expansion. LUNGS: Equal air entry with coarse crackles in the bilateral posterior bases, right greater than left CVS: Regular rate and rhythm, normal S1 and S2, no gallops, no murmurs, no rubs ABDOMEN: Soft, nontender. No hepatosplenomegaly, normal bowel sounds, no guarding or rigidity. EXTREMITIES: No clubbing, no edema, no cyanosis, 2+ pulses and upper and lower extremities. MUSCULOSKELETAL: Muscle strength and tone normal. SPINE: No scoliosis or deformity SKIN: No rashes CENTRAL NERVOUS SYSTEM: No focal deficits, tone is normal in all 4 extremities. PSYCHIATRIC: Alert and oriented -3. Appropriate affect. Intact judgment and insight. - Labs CBC & Chem 7: 04/28/20 06:28 04/28/20 06:28 Labs: Abnormal Lab Results - Last 24 Hours (Table) 04/28/20 04/28/20 Range/Units 06:28 06:28 RDW 15.8 H (11.5-15.5) % Lymphocytes # 0.7 L (1.0-4.8) k/uL Sodium 133 L (137-145) mmol/L Chloride 90 L (98-107) mmol/L Carbon Dioxide 35 H (22-30) mmol/L BUN 52 H (7-17) mg/dL Microbiology - Last 24 Hours (Table) 04/26/20 19:24 Gram Stain - Preliminary Sputum Sputum Culture - Preliminary Radha albicans Gram Neg Bacilli 04/25/20 15:28 Blood Culture - Preliminary Blood No Growth after 48 hours Assessment and Plan Assessment: #1. Shortness of breath, acute on chronic, multifactorial, likely related to acute exacerbation of CHF with diastolic dysfunction, and possibility of left pneumonia not entirely excluded, chest x-ray showing new airspace opacity of the left lung base, and small right pleural effusion, on the background of coarsened interstitial fibrotic lung markings related to underlying history of IPF #2. Elevated troponins, patient denies any chest pain, possibly related to acute exacerbation of CHF, cardiology is following #3. Peripheral edema #4. History of IPF, previously trialed on Esbriet, could not tolerate related to GI side effects #5. Chronic hypoxic rest or a failure related to IPF #6. Recent history of sepsis related to E. coli UTI, leg infection, and stenotrophomonas pneumonia in the right lung, patient was treated with azithromycin and Rocephin, and was sent home on oral course of Ceftin, clinically was improving #7. Hypokalemia, likely related to diuretic therapy #8. Hypertension #9. Hyperlipidemia #10. GERD/reflux #11. Lifelong nonsmoker Plan: The patient was seen and evaluated by Dr. Shaw Feeling nearly back to her baseline Continue the current treatment plan We'll continue to follow Probable discharge in the a.m. I, the cosigning physician, performed a history & physical examination of the pa tient. Lungs sounds are coarse crackles in the bilateral posterior bases, right greater than left. Maintaining good O2 saturations in the 90s on 2 L/m per nasal cannula. I discussed the assessment and plan of care with my nurse practitioner, Zuleika Anton. I attest to the above note as dictated by her.
[2020-04-28] MEDS: ATORVASTATIN 10 MG TAB PO SCH (19:51)
[2020-04-28] MEDS: ASPIRIN 81 MG PO SCH (19:51)
[2020-04-29 06:05] VITALS: RESP 16
[2020-04-29] MEDS: PANTOPRAZOLE 40 MG TABLET PO SCH (06:32)
[2020-04-29] MEDS: FUROSEMIDE 10 MG/ML 2 ML VIAL IV SCH (06:32)
[2020-04-29] MEDS: MIDODRINE 5 MG TAB PO SCH (06:32)
[2020-04-29] MEDS: CHOLECALCIFEROL 1,000 UNIT TAB PO SCH (09:02)
[2020-04-29] MEDS: predniSONE 10 MG TAB PO SCH (09:02)
[2020-04-29] MEDS: MONTELUKAST 10 MG TAB PO SCH (09:02)
[2020-04-29 12:51] VITALS: BP 115/58; PULSE 85; TEMP 98.3
--- NOTE | 2020-04-29 12:52 | P.PN ---
Subjective Progress Note Date: 04/27/20 Principal diagnosis: Left lower lung pneumonia worsening compared to be previous exam. Elevated troponin level. Likely demand mismatch. Possible non-ST elevated PA Acute on Chronic CHF with diastolic dysfunction. Patient is a 69-year-old female with a known history of hypertension, hyperlipidemia, pulmonary fibrosis, GERD and recent history of pneumonia with sputum cultures growing stenotrophomonas and Radha and also sepsis secondary to urinary tract infection. Patient was discharged home on 04/12/2020. Patient states that she has been feeling very well and was seen at Dr. Blankenship's office. Patient had lab work-up done. Patient was called today to come to the ER due to abdominal lab findings. Patient also had chest x-ray at doctor's office. Otherwise patient denied any complaints of chest pain or shortness of breath. Patient does have improved leg swelling compared to previous admission. Denied any complaints of chest pain. No fever no chills. No worsening shortness of breath. No headache or dizziness or lightheadedness. Patient says that she had a cough in the ER and was able to bring UP thick sputum which made her symptomatically better. Laboratory data showed WBC 12.9, hemoglobin 15.1 platelets 158 Sodium 132, potassium 3.1, chloride 85 and bicarb is 33 BUN 58 and creatinine 1.46 Last creatinine at discharge on 04/12/2020 was1.27 Troponin 0 0.163, 0.163 and 0.186 proBNP 22593 Albumin 3.9 Chest x-ray showed increased airspace opacity of the left lung base versus 04/09/2020. Findings may represent atelectasis versus developing consolidation. Unchanged right small pleural effusion. Chronic interstitial pulmonary fibrosis. 04/26/2020 Patient is currently sitting in the chair. Awake alert oriented x3. Shortness of breath did improve compared to yesterday. Patient is being continued on IV Lasix 40 mg twice daily. Currently on antibiotics in the form of ceftriaxone and azithromycin. Patient has been afebrile. Cough with whitish to clear sputum production. Patient currently complains of chest pain. Laboratory data showed WBC trending down to 9.6. Hemoglobin 14.4 and platelets 122 Sodium 133 and potassium 2.3 BUN 55 and creatinine 1.46 potassium is being replaced. 04/27/2020 Patient is currently sitting in a chair. Awake and oriented 3. On oxygen at 2 L via nasal cannula. Patient says that her breathing is better today. Leg swelling is much improved as well. Currently being continued on antibiotics in the form of ceftizoxime due to recent BAL cultures showing stenotrophomonas pneumonia. Patient has been afe brile. Laboratory data sodium 131, potassium 3.4, chloride 88 and BUN 52 creatinine 1.26. Pulmonary and cardiology is following. Current medications reviewed. Objective - Vital Signs Vital signs: Vital Signs Temp 98.4 F 04/27/20 16:00 Pulse 96 04/27/20 19:33 Resp 18 04/27/20 20:00 BP 106/59 04/27/20 20:00 Pulse Ox 96 04/27/20 16:00 Intake & Output 04/27/20 04/27/20 04/28/20 06:59 18:59 06:59 Intake Total 210.612 107.476 Output Total 2 120 Balance 210.612 105.476 -120 Weight 61.1 kg Intake: Intake, IV Titration 210.612 107.476 Amount Heparin Sod,Pork in 0.45% 210.612 107.476 NaCl 25,000 unit In 0.45 % NaCl 1 250ml.bag @ 12 UNITS/KG/HR 7.893 mls/hr IV .Q24H [facility] Rx#: [id number] Output: Urine 2 120 Other: Voiding Method Toilet Toilet # Voids 1 1 1 - Exam PHYSICAL EXAMINATION: Patient is lying in the bed comfortably, no acute distress, awake alert and oriented.. HEENT: Normocephalic. Neck is supple. Pupils reactive. Nostrils clear. Oral cavity is moist. Ears reveal no drainage. Neck reveals no JVD, carotid bruits, or thyromegaly. CHEST EXAMINATION: Trachea is central. Symmetrical expansion. Diffuse fine crackles and coarse breath sounds in the left lower lobe. No wheezing.. CARDIAC: Normal S1, S2 with no gallops. No murmurs ABDOMEN: Soft. Bowel sounds normal. No organomegaly. No abdominal bruits. Extremities: 1+ bilateral pedal edema. No clubbing or cyanosis Neurologically awake, alert, oriented x3 with well-coordinated movements. No focal deficits noted Skin: No rash or skin lesions. Psychiatric: Coperative. Nonsuicidal Musculoskeletal: No joint swelling or deformity. Normal range of motion. - Labs CBC & Chem 7: 04/28/20 06:28 08 06:28 Labs: Abnormal Lab Results - Last 24 Hours (Table) 04/27/20 04/27/20 04/27/20 Range/Units 02:07 06:17 06:17 APTT 38.9 H (22.0-30.0) sec Sodium 131 L (137-145) mmol/L Potassium 3.0 L 3.4 L (3.5-5.1) mmol/L Chloride 88 L (98-107) mmol/L Carbon Dioxide 33 H (22-30) mmol/L BUN 52 H (7-17) mg/dL Creatinine 1.26 H (0.52-1.04) mg/dL Magnesium 2.4 H (1.6-2.3) mg/dL Microbiology - Last 24 Hours (Table) 04/25/20 15:28 Blood Culture - Preliminary Blood No Growth after 48 hours 04/26/20 19:24 Gram Stain - Preliminary Sputum Sputum Culture - Preliminary Assessment and Plan Assessment: Left lower lung pneumonia worsening compared to be previous exam. With the recent BAL cultures growing stenotrophomonas. Currently on ceftazidime. Elevated troponin level. Likely demand mismatch. Possible non-ST elevated PA Acute on Chronic CHF with diastolic dysfunction. Severe pulmonary hypertension Recent sepsis secondary pneumonia and UTI/E. coli Acute kidney injury most likely prerenal possibly ATN. Severe hypokalemia 3.1 Chronic hypoxic respiratory failure secondary to pulmonary fibrosis Hypertension Hyperlipidemia Idiopathic pulmonary fibrosis DVT prophylaxis Plan: Patient will be continued on antibiotics the form of cefazolin.. Sputum cultures ordered. Continue with aspirin and statins . Patient was seen by cardiology and recommended to discontinue heparin and continue with medical management at this time. Unlikely acute PA. 2D echocardiogram was ordered. Pulmonary is following. Replace electrolytes and follow-up CBC and BMP tomorrow. Prognosis guarded with continued problems and comorbid conditions. Time with Patient: Greater than 30
--- NOTE | 2020-04-29 12:54 | P.PN ---
Subjective Progress Note Date: 04/28/20 Principal diagnosis: Left lower lung pneumonia worsening compared to be previous exam. Elevated troponin level. Likely demand mismatch. Possible non-ST elevated LA Acute on Chronic CHF with diastolic dysfunction. Patient is a 69-year-old female with a known history of hypertension, hyperlipidemia, pulmonary fibrosis, GERD and recent history of pneumonia with sputum cultures growing stenotrophomonas and Radha and also sepsis secondary to urinary tract infection. Patient was discharged home on 04/12/2020. Patient states that she has been feeling very well and was seen at Dr. Blankenship's office. Patient had lab work-up done. Patient was called today to come to the ER due to abdominal lab findings. Patient also had chest x-ray at doctor's office. Otherwise patient denied any complaints of chest pain or shortness of breath. Patient does have improved leg swelling compared to previous admission. Denied any complaints of chest pain. No fever no chills. No worsening shortness of breath. No headache or dizziness or lightheadedness. Patient says that she had a cough in the ER and was able to bring UP thick sputum which made her symptomatically better. Laboratory data showed WBC 12.9, hemoglobin 15.1 platelets 158 Sodium 132, potassium 3.1, chloride 85 and bicarb is 33 BUN 58 and creatinine 1.46 Last creatinine at discharge on 04/12/2020 was1.27 Troponin 0 0.163, 0.163 and 0.186 proBNP 24152 Albumin 3.9 Chest x-ray showed increased airspace opacity of the left lung base versus 04/09/2020. Findings may represent atelectasis versus developing consolidation. Unchanged right small pleural effusion. Chronic interstitial pulmonary fibrosis. 04/26/2020 Patient is currently sitting in the chair. Awake alert oriented x3. Shortness of breath did improve compared to yesterday. Patient is being continued on IV Lasix 40 mg twice daily. Currently on antibiotics in the form of ceftriaxone and azithromycin. Patient has been afebrile. Cough with whitish to clear sputum production. Patient currently complains of chest pain. Laboratory data showed WBC trending down to 9.6. Hemoglobin 14.4 and platelets 122 Sodium 133 and potassium 2.3 BUN 55 and creatinine 1.46 potassium is being replaced. 04/27/2020 Patient is currently sitting in a chair. Awake and oriented 3. On oxygen at 2 L via nasal cannula. Patient says that her breathing is better today. Leg swelling is much improved as well. Currently being continued on antibiotics in the form of ceftizoxime due to recent BAL cultures showing stenotrophomonas pneumonia. Patient has been afe brile. Laboratory data sodium 131, potassium 3.4, chloride 88 and BUN 52 creatinine 1.26. Pulmonary and cardiology is following. 04/28/2020 Patient is currently sitting in his comfortably. Breathing status is better. No complains of chest pain. Leg swelling is also improving. Currently on oxyge n at 90% on 2 L with another cannula. From cultures showed gram-negative bacilli. No leukocytosis. Neck and laboratory showed WBC 8.9, BUN/creatinine 52 and creatinine 1.0 to, hemoglobin 13.7 Patient is being continued on antibiotics and IV diuresis. Current medications reviewed. Objective - Vital Signs Vital signs: Vital Signs Temp 97.7 F 04/28/20 19:41 Pulse 101 H 04/28/20 19:41 Resp 16 04/28/20 19:41 BP 95/59 04/28/20 19:41 Pulse Ox 93 L 04/28/20 19:41 Intake & Output 04/28/20 04/28/20 04/29/20 06:59 18:59 06:59 Intake Total 540 Output Total 530 Balance -530 540 Weight 62.5 kg Intake: Oral 540 Output: Urine 530 Other: Voiding Method Bedside Commode Bedside Commode Bedside Commode # Voids 2 4 - Exam PHYSICAL EXAMINATION: Patient is lying in the bed comfortably, no acute distress, awake alert and oriented.. HEENT: Normocephalic. Neck is supple. Pupils reactive. Nostrils clear. Oral cavity is moist. Ears reveal no drainage. Neck reveals no JVD, carotid bruits, or thyromegaly. CHEST EXAMINATION: Trachea is central. Symmetrical expansion. Diffuse fine crackles and coarse breath sounds in the left lower lobe. No wheezing.. CARDIAC: Normal S1, S2 with no gallops. No murmurs ABDOMEN: Soft. Bowel sounds normal. No organomegaly. No abdominal bruits. Extremities: 1+ bilateral pedal edema. No clubbing or cyanosis Neurologically awake, alert, oriented x3 with well-coordinated movements. No f ocal deficits noted Skin: No rash or skin lesions. Psychiatric: Coperative. Nonsuicidal Musculoskeletal: No joint swelling or deformity. Normal range of motion. - Labs CBC & Chem 7: 04/28/20 06:28 04/28/20 06:28 Labs: Abnormal Lab Results - Last 24 Hours (Table) 04/28/20 04/28/20 04/28/20 Range/Units 06:28 06:28 06:28 RDW 15.8 H (11.5-15.5) % Lymphocytes # 0.7 L (1.0-4.8) k/uL Sodium 133 L (137-145) mmol/L Chloride 90 L (98-107) mmol/L Carbon Dioxide 35 H (22-30) mmol/L BUN 52 H (7-17) mg/dL Procalcitonin 0.50 H (0.02-0.09) ng/mL Microbiology - Last 24 Hours (Table) 04/25/20 15:28 Blood Culture - Preliminary Blood No Growth after 72 hours 04/26/20 19:24 Gram Stain - Preliminary Sputum Sputum Culture - Preliminary Radha albicans Gram Neg Bacilli Assessment and Plan Assessment: Left lower lung pneumonia worsening compared to be previous exam. With the recent BAL cultures growing stenotrophomonas. Currently on ceftazidime. Elevated troponin level. Likely demand mismatch. Possible non-ST elevated LA Acute on Chronic CHF with diastolic dysfunction. Severe pulmonary hypertension Recent sepsis secondary pneumonia and UTI/E. coli Acute kidney injury most likely prerenal possibly ATN. Severe hypokalemia 3.1 Chronic hypoxic respiratory failure secondary to pulmonary fibrosis Hypertension Hyperlipidemia Idiopathic pulmonary fibrosis DVT prophylaxis Plan: Patient will be continued on antibiotics the form of ceftazidime.. Sputum cultures showed gram-negative bacilli.. Continue with aspirin and statins . Patient was seen by cardiology and recommended to discontinue heparin and continue with medical management at this time. Unlikely acute LA. 2D echocardiogram was ordered. Pulmonary is following. Replace electrolytes and follow-up CBC and BMP tomorrow. Prognosis guarded with continued problems and comorbid conditions. Time with Patient: Greater than 30
[2020-04-29 14:41] LABS: Calcium 8.8 mg/dL (8.4-10.2)
[2020-04-29 14:55] LABS: Potassium 5.1 mmol/L (3.5-5.1)
--- NOTE | 2020-04-29 15:59 | PN ---
PROGRESS NOTE Mrs. Tripp is a 69-year-old female with a history of a pulmonary fibrosis who presented with symptoms of progressive dyspnea. She is feeling better at this time. Her breathing is better. She continues to have peripheral edema. She denies any dizziness or palpitations. She denies any nausea. Her energy is better overall. She had mild elevation of her troponin that was felt related to demand supply and hypoxemia. She has evidence as well of diastolic heart failure. She continues at this time on aspirin once a day, Lipitor 10 mg daily, Lasix 20 mg twice a day, Protonix, midodrine. PHYSICAL EXAMINATION: Blood pressure 115/58 with heart rate in the 80s lungs with decreased air exchange with dry crackles. HEART: Regular rate and rhythm. S1, S2. No S3 with systolic murmur. ABDOMEN: Soft, nontender. EXTREMITIES: +1 edema. IMPRESSION: 1. Symptoms of progressive dyspnea, improving with a history of pulmonary fibrosis and fluid overload related to heart failure with diastolic dysfunction. 2. History of pulmonary fibrosis. 3. History of anxiety. 4. Mild troponin elevation related to supply/ demand mismatch. 5. Pulmonary hypertension. 6. Chronic kidney disease. RECOMMENDATION: From the cardiac standpoint, she is stable. I would expect she should be able to be discharged home soon and followed as an outpatient with Dr. Adan. GRACIE / CINDY: [id number] /
--- NOTE | 2020-05-01 11:41 | CDI ---
Documentation Clarification Form Date: 05/01/2020 11:26:08 AM From: Chayito Young Phone: If you have a question about this query, please contact Sophie [employer] at [phone] between 8am and 5pm. Admit Date: 04/25/2020 06:33:00 PM Patient Name: Sharon Tripp Visit Number: [id number] Discharge Date: 04/29/2020 03:09:00 PM ATTENTION: The Clinical Documentation Specialists (CDI) and [facility] Coding Staff appreciate your assistance in clarifying documentation. Please respond to the clarification below the line at the bottom and electronically sign. The CDI & [facility] Coding staff will review the response and follow-up if needed. Please note: Queries are made part of the Legal Health Record. If you have any questions, please contact the author of this message via ITS. Dr. Audrey Hartman Conflicting documentation has been found in the medical record: Per your PN's and pulmonary patient has Acute and Chronic diastolic CHF. Per Cardiology query, patient has chronic diastolic CHF. Please clarify if patient has acute exacerbation of diastolic CHF or does patient have chronic diastolic CHF. History/Risk Factors: HTN heart and renal disease, IPF, pneumonia, chronic hypoxic respiratory failure on home O2 Clinical Indicators: BNP 17,7000 CXR right pleural effusion Treatment: IV diuresis In your opinion, what is the most clinically appropriate diagnosis for this patient? And was condition POA? Acute and chronic diastolic CHF Chronic diastolic CHF Other explanation of clinical findings Unable to determine (no explanation for clinical findings) POA : Yes No Acute and chronic diastolic CHF. POA MTDD
== END 2020-04-29 15:09 | disposition home or self-care (01) | DRG 193 ==
LOC: EC 14:43 → 3SCARD 18:33
PROVIDERS: ADMIT Internal Medicine; ATTEND Internal Medicine
DX: J18.9 Pneumonia, unspecified organism (principal); I21.A1 Myocardial infarction type 2; I50.33 Acute on chronic diastolic (congestive) heart failure; I13.0 Hypertensive heart and chronic kidney disease with heart failure and stage 1 through stage 4 chronic kidney disease, or unspecified chronic kidney disease; J96.11 Chronic respiratory failure with hypoxia; N17.9 Acute kidney failure, unspecified; E78.5 Hyperlipidemia, unspecified; E87.6 Hypokalemia; I27.20 Pulmonary hypertension, unspecified; I36.1 Nonrheumatic tricuspid (valve) insufficiency; I37.1 Nonrheumatic pulmonary valve insufficiency; I49.3 Ventricular premature depolarization; J84.112 Idiopathic pulmonary fibrosis; K21.9 Gastro-esophageal reflux disease without esophagitis; N18.3 Chronic kidney disease, stage 3 (moderate); T50.2X5A Adverse effect of carbonic-anhydrase inhibitors, benzothiadiazides and other diuretics, initial encounter; Z79.82 Long term (current) use of aspirin; Z79.899 Other long term (current) drug therapy; Z87.01 Personal history of pneumonia (recurrent); Z87.891 Personal history of nicotine dependence; Z20.828 Contact with and (suspected) exposure to other viral communicable diseases; Z87.440 Personal history of urinary (tract) infections; Z99.81 Dependence on supplemental oxygen; F41.9 Anxiety disorder, unspecified; Z90.49 Acquired absence of other specified parts of digestive tract; Z90.89 Acquired absence of other organs; Z88.5 Allergy status to narcotic agent; Z88.8 Allergy status to other drugs, medicaments and biological substances; Z91.040 Latex allergy status; Z79.52 Long term (current) use of systemic steroids
CPT/HCPCS: 36415; 71046; 80048; 80053; 83605; 83735; 83880; 84132; 84145; 84484; 85025; 85730; 87040; 87070; 87077; 87186; 87205; 93005; 94640; 96365; 96366; 96368; 96375; 96376; 99285

== ENCOUNTER 2020-04-30 20:34 | Emergency (ER) | payer MEDICARE ==
[~2020-04-30 20:34] MED LIST: EPINEPHrine 10 ML SYRINGE (0.1 MG/ML) ONE; SODIUM BICARB 8.4% 50 ML SYR (1 MEQ/ML) ONE
--- NOTE | 2020-04-30 20:49 | ED ---
General Adult HPI - General Stated complaint: Unresponsive Time Seen by Provider: 04/30/20 20:41 Source: EMS, RN notes reviewed, old records reviewed - History of Present Illness Initial comments: 69-year-old female with multiple medical issues presenting as CPR in progress. Patient was found at approximately between 7:15 and 7:30. Patient was evaluated by EMS found to be in PEA cardiac arrest. CPR was initiated, she was intubated by EMS and transported with a brief episode of return of spontaneous circulation and one intermittent episode of ventricular tachycardia. She was given multiple doses of epinephrine and CPR was continued throughout a prolonged transport. She arrived to the hospital at approximately 2030PM initial rhythm at the time of presentation was asystole. CPR was continued by ACLS protocol and ultimately time of was called at 2039 - Related Data Home Medications Medication Instructions Recorded Confirmed Cholecalciferol [Vitamin D3 (25 5,000 unit PO DAILY 09/18/16 04/25/20 Mcg = 1000 Iu)] Simvastatin [Zocor] 20 mg PO HS 09/18/16 04/25/20 Aspirin EC [Ecotrin Low Dose] 81 mg PO HS 04/06/20 04/25/20 Ipratropium-Albuterol Nebulize 3 ml INHALATION RT-QID PRN 04/06/20 04/25/20 [Duoneb 0.5 mg-3 mg/3 ml Soln] Montelukast Sodium [Singulair] 10 mg PO DAILY 04/06/20 04/25/20 Nitroglycerin Sl Tabs [Nitrostat] 0.4 mg SL Q5M PRN 04/25/20 04/25/20 Previous Rx's Medication Instructions Recorded Furosemide [Lasix] 40 mg PO BID@0900,1600 30 Days #60 04/12/20 tab Midodrine [ProAmatine] 10 mg PO AC-TID 30 Days #180 tab 04/12/20 Pantoprazole [Protonix] 40 mg PO AC-BRKFST 30 Days #30 04/12/20 tablet. predniSONE 10 mg PO DAILY 30 Days #30 tab 04/12/20 Sulfamethox-Tmp 800-160Mg [Bactrim 1 tab PO Q12HR 4 Days #8 tab 04/29/20 DS 800-160 mg] Allergies Allergy/AdvReac Type Severity Reaction Status Date / Time latex Allergy Rash/Hives Verified 04/25/20 17:07 hydrocodone AdvReac Nausea & Verified 04/25/20 17:07 Vomiting & Diarrhea meperidine [From Demerol] AdvReac Nausea & Verified 04/25/20 17:07 Vomiting & Diarrhea oxycodone AdvReac Nausea & Verified 04/25/20 17:07 Vomiting & Diarrhea pirfenidone AdvReac Kidney Verified 04/25/20 17:07 Pain (brand Esbriet) tramadol AdvReac Nausea & Verified 04/25/20 17:07 Vomiting & Diarrhea Review of Systems ROS Statement: Those systems with pertinent positive or pertinent negative responses have been documented in the HPI. ROS Other: All systems not noted in ROS Statement are negative. Past Medical History Past Medical History: GERD/Reflux, Hyperlipidemia, Hypertension, Pneumonia Additional Past Medical History / Comment(s): Pulm fibrosis History of Any Multi-Drug Resistant Organisms: None Reported Past Surgical History: Appendectomy, Orthopedic Surgery, Tonsillectomy Additional Past Surgical History / Comment(s): shoulder Past Anesthesia/Blood Transfusion Reactions: No Reported Reaction Past Psychological History: No Psychological Hx Reported Smoking Status: Former smoker Past Alcohol Use History: None Reported Past Drug Use History: None Reported General Exam General appearance: other (No spontaneous respiration, no spontaneous heart sounds patient is cooperative with touch. There is emesis coming from the mouth, and hemorrhage from her ET tube) Eye exam: Present: other (Pupils are fixed and dilated) Respiratory exam: Present: other (No spontaneous respirations, rales with BVM bilateral breath sounds present.) Cardiovascular Exam: Present: other (No spontaneous heart sounds, asystole on the monitor, cardiac standstill on bedside echo) GI/Abdominal exam: Present: soft. Absent: distended, tenderness Extremities exam: Present: pedal edema Medical Decision Making - Medical Decision Making 69-year-old female with PEA arrest followed by asystole, prolonged down time. At the time of arrival patient is at least 60 minutes without spontaneous circulation, pupils are fixed and dilated, there is no cardiac activity on bedside echo asystole on the monitor. CPR was continued for 2 rounds in the emergency department according to ACLS protocol. Ultimately time of was pronounced at 2039. computer forensic examiner was contacted primary care physician has been paged. I was able to speak with the patient's son. Disposition Clinical Impression: Cardiopulmonary arrest Disposition: Condition: Undetermined Is patient prescribed a controlled substance at d/c from ED?: No Referrals: Artemio Melo DO [Primary Care Provider] - 1-2 days Time of Disposition: 20:48 Preliminary Cause of : Cardiopulmonary arrest, likely respiratory arrest
== END 2020-05-01 01:25 | disposition expired ==
LOC: EC 20:34
DX: I46.9 Cardiac arrest, cause unspecified (principal); I10 Essential (primary) hypertension; E78.5 Hyperlipidemia, unspecified; Z79.82 Long term (current) use of aspirin; Z79.899 Other long term (current) drug therapy; Z91.040 Latex allergy status; Z88.5 Allergy status to narcotic agent; Z88.8 Allergy status to other drugs, medicaments and biological substances; Z87.891 Personal history of nicotine dependence
CPT/HCPCS: 92950; 99285